=== PATIENT | female | born 1995 | race Caucasian/White ===

== ENCOUNTER 2019-05-26 00:19 | Inpatient (IN) ==
--- OUTSIDE RECORDS SUMMARY | 2019-05-26 00:23 | External Medical Summary | Continuity of Care Document ---
:1995 Author Name Yoandy Moore, Provider Address Unavailable Unavailable , Care Team Providers Name Role Phone Unavailable Unavailable Unavailable Cielo Whittington Unavailable [email or web address] Marin Mosqueda M.D. 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 Teresa Start: 21-May-2017 Refills: 0 Advil Cold/Sinus 30-200 MG Oral Tablet; TAKE 1 TABLET EVERY 4 TO 6 HOURS NEEDED. ALEX Ledezma Start: 31-Jul-2011 Quantity: 1 20 EA Box Refills: 0 Procedures History of intrauterine device removal S tatus: Completed History of hysteroscopy Status: Complete d History of termination of Stat us: Completed Immunizations Hepatitis B On: 1995 0:00 Hepatitis B On: 1995 0:00 Polio On: 1995 0:00 HIB On: 1995 0:00 DTaP On: 1995 0:00 Polio On: 14-Jan-1996 0:00 HIB On: 14-Jan-1996 0:00 DTaP On: 14-Jan-1996 0:00 Hepatitis B On: 29-Mar-1996 0:00 Polio On: 29-Mar-1996 0:00 HIB On: 29-Mar-1996 0:00 DTaP On: 29-Mar-1996 0:00 HIB On: 25-Mar-1997 0:00 DTaP On: 25-Mar-1997 0:00 MMR On: 25-Mar-1997 0:00 Polio On: 29-Sep-2000 0:00 DTaP On: 29-Sep-2000 0:00 MMR On: 29-Sep-2000 0:00 Varicella On: 29-Sep-2000 0:00 PPD On: 27-Oct-2001 0:00 Tdap (Adacel) On: 27-Oct-2006 0:00 Menactra Intramuscular Injectable On: 27-Oct-2006 0:00 Varicella On: 09-May-2008 0:00 HPV (Gardasil) On: 09-May-2008 0:00 HPV (Gardasil) On: 06-Jul-2008 0:00 HPV (Gardasil) On: 04-Nov-2008 0:00 Influenza On: 22-Dec-2008 0:00 PPD On: 17-Aug-2009 0:00 Influenza On: 09-Jan-2010 0:00 Family History Unknown Family Member Family history of lung disease (V19.8) Status: Active C omments: Family History (Z83.6) Social History - Smoking Status Never smoked tobacco Plan of Treatment Planned Observations Planned Goals not documented Results No Known Results Results not documented Encounters Appointment; Marin Mosqueda M.D. 04-Mar-2018 9:00 Encounter Diagnosis: Problem not documented Appointment; Shawn Almodovar PA-C 31-Oct-2017 14:10 Encounter Diagnosis: Problem not documented Appointment; Shawn Almodovar PA-C 15-Aug-2017 13:50 Encounter Diagnosis: Problem not documented
--- OUTSIDE RECORDS SUMMARY | 2019-05-26 00:23 | External Medical Summary | Continuity of Care Document ---
:1995 Author Name Yoandy Moore, Provider Address Unavailable Unavailable , Care Team Providers Name Role Phone Unavailable Unavailable Unavailable Cielo Whittington Unavailable [email or web address] Marin Mosqueda M.D. 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 ALEX Ledezma Start: 31-Jul-2011 Quantity: 1 20 EA Box Refills: 0 Ibuprofen 600 MG Oral Tablet; TAKE 1 TABLET EVERY 6 TO 8 HOURS NEEDEDTeresa Paredes Start: 21-May-2017 Refills: 0 methIMAzole 10 MG Oral Tablet; TAKE 2 TABLETS TWICE DA JJ Cueva Start: 21-May-2017 Quantity: 120 Refills: 0 Nexplanon 68 MG Subcutaneous Implant , Teresa Sta rt: 15-Aug-2017 Refills: 0 Propranolol HCl ER 80 MG Oral Capsule Ex tended Release 24 Hour; Take one tablet daily Teresa Mosqueda Start: 15-Aug-2017 Quantity: 30 Refills: 0 Procedures History of intrauterine device removal S tatus: Completed History of hysteroscopy Status: Complete d History of termination of Stat us: Completed Immunizations Hepatitis B On: 1995 0:00 Hepatitis B On: 1995 0:00 DTaP On: 1995 0:00 HIB On: 1995 0:00 Polio On: 1995 0:00 DTaP On: 14-Jan-1996 0:00 HIB On: 14-Jan-1996 0:00 Polio On: 14-Jan-1996 0:00 Hepatitis B On: 29-Mar-1996 0:00 DTaP On: 29-Mar-1996 0:00 HIB On: 29-Mar-1996 0:00 Polio On: 29-Mar-1996 0:00 DTaP On: 25-Mar-1997 0:00 HIB On: 25-Mar-1997 0:00 MMR On: 25-Mar-1997 0:00 DTaP On: 29-Sep-2000 0:00 Polio On: 29-Sep-2000 0:00 MMR On: 29-Sep-2000 0:00 Varicella On: 29-Sep-2000 0:00 PPD On: 27-Oct-2001 0:00 Menactra Intramuscular Injectable On: 27-Oct-2006 0:00 Tdap (Adacel) On: 27-Oct-2006 0:00 Varicella On: 09-May-2008 0:00 [...]
[2019-05-26] MEDS ORDERED: ACETAMINOPHEN 500 MG TAB PO STA (00:42)
[2019-05-26] MEDS ORDERED: SODIUM CHLORIDE 0.9% 1000ML 1,000 ML IV ONE ×2 (00:42→02:27)
[2019-05-26] MEDS ORDERED: KETOROLAC TROMETHAMINE 15 MG/ML VIAL IV STA (00:42)
[2019-05-26] MEDS ORDERED: ONDANSETRON INJ 2 MG/ML 2 ML VIAL IV STA (01:12)
[2019-05-26 01:31] LABS: Influenza A virus by PCR Neg for Influ A (Neg); Influenza B virus by PCR Neg for Influ B (Neg)
[2019-05-26 01:37] LABS: Alanine Aminotransferase 29 U/L (12-78); Albumin Level 3.5 gm/dl (3.4-5.0); Aspartate Aminotransferase 14 U/L (15-37); BUN Creatinine Ratio 13.7 (10-20); Blood Urea Nitrogen 8 mg/dl (7-18); Calcium 9.3 mg/dl (8.5-10.1); Carbon Dioxide 25 mmol/L (21-32); Chloride 105 mmol/L (98-107); Creatinine Clr Calc Pharmacy 128.1 ml/min; Est GFR (African American) 149.7; Est GFR (Non-African American) 129.2; Glucose 111 mg/dl (70-99); Potassium 3.6 mmol/L (3.5-5.1); Sodium 136 mmol/L (136-145)
[2019-05-26 01:42] LABS: Albumin Globulin Ratio 0.8 (0.9-2); Alkaline Phosphatase 142 U/L (45-117); Bilirubin,Total 0.5 mg/dl (0.2-1); Globulin 4.3 gm/dl (2.5-4.0); Total Protein 7.8 gm/dl (6.4-8.2); Troponin I < 0.015 ng/ml (0-0.045)
[2019-05-26 01:46] LABS: Basophils # (auto) 0.01 K/uL (0-0.2); Basophils % (auto) 0.1 %; Eosinophils # (auto) 0.07 K/uL (0-0.5); Eosinophils % (auto) 0.7 %; Hematocrit (blood only) 35.8 % (37-47); Immature Granulocytes # (auto) 0.03 K/uL (0.00-0.02); Immature Granulocytes % (auto) 0.3 %; Lymphocytes # (auto) 2.44 K/uL (1.2-3.4); Lymphocytes % (auto) 23.8 %; Mean Corpuscular Hemoglobin 22.8 pg (25-34); Mean Corpuscular Hgb Conc 33.5 g/dL (32-36); Mean Corpuscular Volume 68.1 fL (80-100); Mean Platelet Volume 10.4 fL (7.4-10.4); Microcytosis Present; Monocytes # (auto) 0.98 K/uL (0.11-0.59); Monocytes % (auto) 9.5 %; Neutrophils # (auto) 6.74 K/uL (1.4-6.5); Neutrophils % (auto) 65.6 %; Ovalocytes 1+; Platelet Count 205 K/uL (130-400); RDW Coefficient of Variation 14.9 % (11.5-14.5); RDW Standard Deviation 36.7 fL (36.4-46.3); Red Blood Count 5.26 M/uL (4.2-5.4); White Blood Count 10.27 K/uL (4.8-10.8)
[2019-05-26] MEDS ORDERED: HYCODAN 60ML BOTTLE HOMEPACK PO ONE (02:39)
--- NOTE | 2019-05-26 03:00 | Emergency Department Note ---
History of Present Illness General Chief complaint: Illness Stated complaint: DRY COUGH,CHEST PAIN,RUNNY NOSE Time Seen by Provider: 05/26/19 00:28 Source: patient Mode of arrival: ambulatory Limitations: no limitations History of Present Illness Maximum Pain Intensity: 7 This patient is a 23-year-old female who presents to the emergency department for evaluation of flulike symptoms. Patient states she has had a dry cough, shortness of breath, chest pain, muscle aches, sore throat, nasal congestion and fever which started yesterday. The patient states that a few weeks ago, she had some cold symptoms which resolved until yesterday. She has not taken any medications for her symptoms. She reports that the chest pain started on the right side but is now across both sides of the chest. She did not receive a flu shot this year. She rates her discomfort a 7/10. She reports a past medical history of Graves' disease and takes propanolol and methimazole for this. Denies abdominal pain, vomiting, diarrhea or neck pain. Denies any urinary symptoms. Home Medications Home Medications Medication Instructions Recorded Confirmed Type Thyroid Med 1 tab PO DAILY 05/26/19 05/26/19 History albuterol sulfate [Ventolin HFA] 2 puff INHALATION Q4H PRN 05/26/19 05/26/19 History fluticasone furoate-vilanterol 1 inh INHALATION DAILY 05/26/19 05/26/19 History [Breo Ellipta] methimazole 20 mg PO BID 05/26/19 05/26/19 History montelukast 10 mg PO DAILY 05/26/19 05/26/19 History propranolol 80 mg PO DAILY 05/26/19 05/26/19 History Allergies Allergy/AdvReac Type Severity Reaction Status Date / Time No Known Allergies Allergy Unverified 05/26/19 00:53 Past Med/Surg History Medical History Graves' disease Social History Preferred Language: Romansh Communication Ability: Effective Filenet Developer Required: No Beliefs That Will Affect Care: None Current Living Situation: Family Current Living Situation Comment: grandmother Feels Safe at Home: Yes Smoking Status: Never smoker Hx Alcohol Use: Yes Hx Substance Use: Yes substance use type: marijuana Last Used Substance Other:: daily Review of Systems A total of 10 systems reviewed and were otherwise negative Physical Exam Vital Signs Vital Signs - 24 hr 05/26/19 00:22 05/26/19 01:06 05/26/19 01:09 Temperature 39 C H Temperature Source Oral Pulse Rate 130 H 114 H 118 H Pulse Rate from SpO2 Sensor 115 H Respiratory Rate 20 22 17 Blood Pressure 120/87 136/69 Blood Pressure Mean 98 98 Pulse Oximetry 94 98 Oxygen Delivery Method Room Air Room Air Room Air Sepsis Recent Fever Within 48 Hours No Sepsis New/Unexplained Change in Mental Status No Sepsis Action Taken by Nursing No Action Required 05/26/19 01:10 05/26/19 01:20 05/26/19 01:30 Temperature Temperature Source Pulse Rate 119 H 120 H 119 H Pulse Rate from SpO2 Sensor 128 H 122 H 116 H Respiratory Rate 24 29 H 24 Blood Pressure 132/68 Blood Pressure Mean 76 Pulse Oximetry 93 97 Oxygen Delivery Method Room Air Room Air Room Air Sepsis Recent Fever Within 48 Hours Sepsis New/Unexplained Change in Mental Status Sepsis Action Taken by Nursing 05/26/19 01:40 05/26/19 01:50 05/26/19 02:00 Temperature Temperature Source Pulse Rate 122 H 126 H 127 H Pulse Rate from SpO2 Sensor 123 H 126 H 127 H Respiratory Rate 36 H 29 H 19 Blood Pressure 140/72 Blood Pressure Mean 102 Pulse Oximetry 95 94 97 Oxygen Delivery Method Room Air Room Air Room Air Sepsis Recent Fever Within 48 Hours Sepsis New/Unexplained Change in Mental Status Sepsis Action Taken by Nursing 05/26/19 02:10 05/26/19 02:13 05/26/19 02:30 Temperature 37.8 C H Temperature Source Oral Pulse Rate 128 H 119 H Pulse Rate from SpO2 Sensor 126 H 120 H Respiratory Rate 14 18 Blood Pressure 127/84 Blood Pressure Mean 94 Pulse Oximetry 97 95 Oxygen Delivery Method Room Air Sepsis Recent Fever Within 48 Hours Sepsis New/Unexplained Change in Mental Status Sepsis Action Taken by Nursing 05/26/19 03:00 05/26/19 03:30 05/26/19 04:00 Temperature Temperature Source Pulse Rate 108 H 105 H 106 H Pulse Rate from SpO2 Sensor 109 H 111 H 107 H Respiratory Rate 25 H 15 13 Blood Pressure 140/73 132/89 141/62 H Blood Pressure Mean 88 105 80 Pulse Oximetry 97 97 96 Oxygen Delivery Method Sepsis Recent Fever Within 48 Hours Sepsis New/Unexplained Change in Mental Status Sepsis Action Taken by Nursing VITALS: Vitals are noted on the nurse's note and reviewed by myself. GENERAL: This is a 23-year-old female, uncomfortable appearing, well-developed well-nourished. SKIN: The skin was without rashes. EARS: External auditory canals clear, tympanic membranes pearly aragon without erythema or effusion bilaterally. EYES: Pupils equal round and reactive to light and accommodation. NOSE: Patent, turbinates without inflammation or discharge. MOUTH: Mucous membranes moist. Tonsils are not enlarged. Pharynx without erythema or exudate. NECK: Supple without nuchal rigidity. No lymphadenopathy. HEART: Tachycardic, regular rhythm without murmurs gallops or rubs. LUNGS: Clear to auscultation bilaterally without wheezes, rales or rhonchi. No retractions or accessory muscle use. ABDOMEN: Positive bowel sounds x 4. Soft, nontender to palpation. EXTREMITIES: No pitting edema of the lower extremities. NEURO: Patient was alert and oriented to person place and time. Course Consultations Consultation #1: Dr. Mensah [facility] hospitalist Administered Medications Benzonatate (Tessalon Perle) 100 mg PO TID PRN PRN Reason: Cough Stop: 06/25/19 05:14 Last Admin: 05/26/19 05:36 Dose: 100 mg Documented by: [id number] Sodium Chloride (Nss 1000ml) 1,000 mls @ 100 mls/hr IV .Q10H CAMRYN Stop: 06/25/19 05:14 Last Admin: 05/26/19 05:36 Dose: 100 mls/hr Documented by: [id number] Ioversol (Optiray 320 125ml) 125 ml IV ONCE PRN PRN Reason: Interaction Checking Stop: 05/30/19 05:05 Last Admin: 05/26/19 05:06 Dose: 78 ml Documented by: [id number] Discontinued Medications Acetaminophen (Tylenol) 1,000 mg PO NOW STA Stop: 05/26/19 00:43 Last Admin: 05/26/19 01:06 Dose: 1,000 mg Documented by: [id number] Hydrocodone Bit/Homatropine Methylb (Hycodan Elix Homepack 5/1.5mg/5ml) 1 homepack PO UD ONE Stop: 05/26/19 02:40 Last Admin: 05/26/19 02:43 Dose: 1 homepack Documented by: [id number] Sodium Chloride (Nss 1000ml) 1,000 mls @ 999 mls/hr IV .Q1H1M ONE Stop: 05/26/19 01:42 Last Infusion: 05/26/19 02:14 Dose: 0 mls/hr Documented by: [id number] Admin: 05/26/19 01:06 Dose: 999 mls/hr Documented by: [id number] Sodium Chloride (Nss 1000ml) 1,000 mls @ 999 mls/hr IV .Q1H1M ONE Stop: 05/26/19 03:27 Last Infusion: 05/26/19 03:54 Dose: 0 mls/hr Documented by: [id number] Admin: 05/26/19 02:33 Dose: 999 mls/hr Documented by: [id number] Ketorolac Tromethamine (Toradol) 15 mg IV NOW STA Stop: 05/26/19 00:43 Last Admin: 05/26/19 01:06 Dose: 15 mg Documented by: [id number] Ketorolac Tromethamine (Toradol) 15 mg IV NOW ONE Stop: 05/26/19 05:55 Last Admin: 05/26/19 06:13 Dose: 15 mg Documented by: [id number] Ondansetron HCl (Zofran) 4 mg IV NOW STA Stop: 05/26/19 01:13 Last Admin: 05/26/19 01:17 Dose: 4 mg Documented by: [id number] Medical Decision Making Differential Diagnosis Differential diagnosis includes influenza, pneumonia, viral illness, pericarditis, myocarditis, mononucleosis, meningitis, encephalitis, sepsis, among others. Home Medications Current Medication List: was personally reviewed by me Laboratory Data Attestation: I reviewed the patient's lab results. Result diagrams: 05/26/19 01:08 05/26/19 01:08 Lab Results 05/26/19 05/26/19 05/26/19 Range/Units 00:53 01:08 01:08 WBC 10.27 (4.8-10.8) K/uL RBC 5.26 (4.2-5.4) M/uL Hgb 12.0 (12.0-16.0) g/dL Hct 35.8 L (37-47) % MCV 68.1 L (80-100) fL MCH 22.8 L (25-34) pg MCHC 33.5 (32-36) g/dL RDW Std Deviation 36.7 (36.4-46.3) fL RDW Coeff of Haseeb 14.9 H (11.5-14.5) % Plt Count 205 (130-400) K/uL MPV 10.4 (7.4-10.4) fL Immature Gran % (Auto) 0.3 % Neut % (Auto) 65.6 % Lymph % (Auto) 23.8 % [place] % (Auto) 9.5 % Eos % (Auto) 0.7 % Baso % (Auto) 0.1 % Immature Gran # (Auto) 0.03 H (0.00-0.02) K/uL Neut # (Auto) 6.74 H (1.4-6.5) K/uL Lymph # (Auto) 2.44 (1.2-3.4) K/uL [place] # (Auto) 0.98 H (0.11-0.59) K/uL Eos # (Auto) 0.07 (0-0.5) K/uL Baso # (Auto) 0.01 (0-0.2) K/uL Absolute Nucleated RBC 0.00 (0-0) K/uL Nucleated RBC % (auto) 0.0 % Microcytosis Present Ovalocytes 1+ ESR (0-21) mm/hr Sodium 136 (136-145) mmol/L Potassium 3.6 (3.5-5.1) mmol/L Chloride 105 (98-107) mmol/L Carbon Dioxide 25 (21-32) mmol/L Anion Gap 6.0 (3-11) BUN 8 (7-18) mg/dl Creatinine 0.59 L (0.6-1.2) mg/dl Est Cr Clr Drug Dosing 128.1 ml/min Est GFR ( Amer) 149.7 Est GFR (Non-Af Amer) 129.2 BUN/Creatinine Ratio 13.7 (10-20) Glucose 111 H (70-99) mg/dl Calcium 9.3 (8.5-10.1) mg/dl Total Bilirubin 0.5 (0.2-1) mg/dl AST 14 L (15-37) U/L ALT 29 (12-78) U/L Alkaline Phosphatase 142 H (45-117) U/L Troponin I < 0.015 (0-0.045) ng/ml C-Reactive Protein 0.78 H (0-0.29) mg/dl Total Protein 7.8 (6.4-8.2) gm/dl Albumin 3.5 (3.4-5.0) gm/dl Globulin 4.3 H (2.5-4.0) gm/dl Albumin/Globulin Ratio 0.8 L (0.9-2) Urine Color Urine Appearance (Clear) Urine pH (4.5-7.5) Ur Specific [place] (1.000-1.030) Urine Protein (Negative) Urine Glucose (UA) (Negative) Urine Ketones (Negative) Urine Blood (Negative) Urine Nitrite (Negative) Urine Bilirubin (Negative) Urine Urobilinogen (Negative) Ur Leukocyte Esterase (Negative) POC Ur Test (NEG) Monoscreen (Negative) Influenza Type A (PCR) Neg for Influ A (Neg) Influenza Type B (PCR) Neg for Influ B (Neg) 05/26/19 05/26/19 05/26/19 Range/Units 01:08 01:08 02:50 WBC (4.8-10.8) K/uL RBC (4.2-5.4) M/uL Hgb (12.0-16.0) g/dL Hct (37-47) % MCV (80-100) fL MCH (25-34) pg MCHC (32-36) g/dL RDW Std Deviation (36.4-46.3) fL RDW Coeff of Haseeb (11.5-14.5) % Plt Count (130-400) K/uL MPV (7.4-10.4) fL Immature Gran % (Auto) % Neut % (Auto) % Lymph % (Auto) % [place] % (Auto) % Eos % (Auto) % Baso % (Auto) % Immature Gran # (Auto) (0.00-0.02) K/uL Neut # (Auto) (1.4-6.5) K/uL Lymph # (Auto) (1.2-3.4) K/uL [place] # (Auto) (0.11-0.59) K/uL Eos # (Auto) (0-0.5) K/uL Baso # (Auto) (0-0.2) K/uL Absolute Nucleated RBC (0-0) K/uL Nucleated RBC % (auto) % Microcytosis Ovalocytes ESR 33 H (0-21) mm/hr Sodium (136-145) mmol/L Potassium (3.5-5.1) mmol/L Chloride (98-107) mmol/L Carbon Dioxide (21-32) mmol/L Anion Gap (3-11) BUN (7-18) mg/dl Creatinine (0.6-1.2) mg/dl Est Cr Clr Drug Dosing ml/min Est GFR ( Amer) Est GFR (Non-Af Amer) BUN/Creatinine Ratio (10-20) Glucose (70-99) mg/dl Calcium (8.5-10.1) mg/dl Total Bilirubin (0.2-1) mg/dl AST (15-37) U/L ALT (12-78) U/L Alkaline Phosphatase (45-117) U/L Troponin I (0-0.045) ng/ml C-Reactive Protein (0-0.29) mg/dl Total Protein (6.4-8.2) gm/dl Albumin (3.4-5.0) gm/dl Globulin (2.5-4.0) gm/dl Albumin/Globulin Ratio (0.9-2) Urine Color Urine Appearance (Clear) Urine pH (4.5-7.5) Ur Specific [place] (1.000-1.030) Urine Protein (Negative) Urine Glucose (UA) (Negative) Urine Ketones (Negative) Urine Blood (Negative) Urine Nitrite (Negative) Urine Bilirubin (Negative) Urine Urobilinogen (Negative) Ur Leukocyte Esterase (Negative) POC Ur Test NEG (NEG) Monoscreen Negative (Negative) Influenza Type A (PCR) (Neg) Influenza Type B (PCR) (Neg) 05/26/19 Range/Units 02:50 WBC (4.8-10.8) K/uL RBC (4.2-5.4) M/uL Hgb (12.0-16.0) g/dL Hct (37-47) % MCV (80-100) fL MCH (25-34) pg MCHC (32-36) g/dL RDW Std Deviation (36.4-46.3) fL RDW Coeff of Haseeb (11.5-14.5) % Plt Count (130-400) K/uL MPV (7.4-10.4) fL Immature Gran % (Auto) % Neut % (Auto) % Lymph % (Auto) % [place] % (Auto) % Eos % (Auto) % Baso % (Auto) % Immature Gran # (Auto) (0.00-0.02) K/uL Neut # (Auto) (1.4-6.5) K/uL Lymph # (Auto) (1.2-3.4) K/uL [place] # (Auto) (0.11-0.59) K/uL Eos # (Auto) (0-0.5) K/uL Baso # (Auto) (0-0.2) K/uL Absolute Nucleated RBC (0-0) K/uL Nucleated RBC % (auto) % Microcytosis Ovalocytes ESR (0-21) mm/hr Sodium (136-145) mmol/L Potassium (3.5-5.1) mmol/L Chloride (98-107) mmol/L Carbon Dioxide (21-32) mmol/L Anion Gap (3-11) BUN (7-18) mg/dl Creatinine (0.6-1.2) mg/dl Est Cr Clr Drug Dosing ml/min Est GFR ( Amer) Est GFR (Non-Af Amer) BUN/Creatinine Ratio (10-20) Glucose (70-99) mg/dl Calcium (8.5-10.1) mg/dl Total Bilirubin (0.2-1) mg/dl AST (15-37) U/L ALT (12-78) U/L Alkaline Phosphatase (45-117) U/L Troponin I (0-0.045) ng/ml C-Reactive Protein (0-0.29) mg/dl Total Protein (6.4-8.2) gm/dl Albumin (3.4-5.0) gm/dl Globulin (2.5-4.0) gm/dl Albumin/Globulin Ratio (0.9-2) Urine Color Yellow Urine Appearance Clear (Clear) Urine pH 6.0 (4.5-7.5) Ur Specific [place] 1.008 (1.000-1.030) Urine Protein Negative (Negative) Urine Glucose (UA) Negative (Negative) Urine Ketones Negative (Negative) Urine Blood Negative (Negative) Urine Nitrite Negative (Negative) Urine Bilirubin Negative (Negative) Urine Urobilinogen Negative (Negative) Ur Leukocyte Esterase Negative (Negative) POC Ur Test (NEG) Monoscreen (Negative) Influenza Type A (PCR) (Neg) Influenza Type B (PCR) (Neg) Imaging Data Attestation: I personally reviewed and interpreted this imaging study as follows: My Impression: CHEST 1 VIEW: No acute pulmonary consolidation. No cardiomegaly. ECG Data Attestation: I personally reviewed and interpreted this ECG as follows: Indication: + chest pain Rate (beats per minute): 117 Rhythm: + normal sinus ECG Intervals/blocks: + Normal QRS ECG ST segments: + T-wave inversions (Lateral) Change: the following changes noted (T wave inversions now noted in the lateral leads) Blood Pressure Blood Pressure Findings: Normal blood pressure MDM Narrative The patient is a 23-year-old female who presents today complaining of flulike symptoms and chest pain. Labs revealed no leukocytosis, anemia, or concerning electrolyte abnormalities. Troponin was not elevated. Patient was persistently tachycardic and does have an abnormal EKG. Compared to previous, she now has deep T wave inversions in the lateral leads. Given this as well as patient's active chest pain, there is concern for developing pericarditis. I do feel the patient would benefit from further work-up as an inpatient. Patient was agreeable to this. Case was discussed with the [facility], who will evaluate the patient for further care. Patient was placed on continuous cardiac monitoring throughout her stay. child monitor showed a normal sinus rhythm at 110 bpm. Impression & Plan Left-sided chest pain, Abnormal EKG, Acute febrile illness Discharge Plan Visit Data *Final* Discharge Date/Time: 05/26/19 04:37 Chief Complaint: Illness Stated Complaint: DRY COUGH,CHEST PAIN,RUNNY NOSE ED Provider: Homer Adorno ED Midlevel Provider: Tasneem Lynn Discharge Problem: Left-sided chest pain, Abnormal EKG, Acute febrile illness Patient Disposition: Admitted As Inpatient Discharge Instructions Interventions: ED Discharge Assessment Last Done: 05/26/19 04:37
[2019-05-26 03:07] LABS: Appearance Urine Clear (Clear); Bilirubin Urine Negative (Negative); Blood Urine Negative (Negative); Color Urine Yellow; Glucose Urine UA Negative (Negative); Ketones Urine Negative (Negative); Leukocyte Esterase Urine Negative (Negative); Nitrite Urine Negative (Negative); Protein Urine Negative (Negative); Specific Gravity Urine 1.008 (1.000-1.030); Urobilinogen Urine Negative (Negative)
[2019-05-26 03:25] LABS: C Reactive Protein 0.78 mg/dl (0-0.29)
[2019-05-26] MEDS ORDERED: OPTIRAY 320 125ml IV PRN (05:06)
[2019-05-26] MEDS ORDERED: BENZONATATE 100 MG CAPSULE PO PRN (05:15)
[2019-05-26] MEDS ORDERED: NITROGLYCERIN SL 0.4 MG/TAB TAB SL PRN (05:15)
[2019-05-26] MEDS ORDERED: SODIUM CHLORIDE 0.9% 1000ML 1,000 ML IV SCH (05:15)
[2019-05-26] MEDS ORDERED: ONDANSETRON INJ 2 MG/ML 2 ML VIAL IV PRN (05:15)
[2019-05-26] MEDS ORDERED: KETOROLAC TROMETHAMINE 15 MG/ML VIAL IV ONE (05:54)
--- NOTE | 2019-05-26 06:31 | XRay Report ---
XR chest 1V portable HISTORY: 23 years-old Female fever, cough, chest pain acute cough with fever and chest pain COMPARISON: CTA of the chest of same day TECHNIQUE: Portable AP view of the chest FINDINGS: Cardiomediastinal and hilar silhouettes are within normal limits. Minimal ill-defined bilateral opaci ties are better appreciated on the CTA chest of same day. No pneumothorax, pleural effusion or lobar airspace consolidation. The bones of the chest appear grossly intact. IMPRESSION: Minimal ill-defined bilateral opacities are better appreciated on CTA chest of the same d ay and are suggestive of a multifocal pneumonia. ACT 112: Negative or not required by law. The above report was generated using voice recognition software. It may contain grammatical, syntax o r spelling errors. Electronically signed by: Angel Quintana M.D. 05/26/2019 6:30 AM
--- NOTE | 2019-05-26 06:37 | CT Scan Report ---
CT ANGIOGRAM OF THE CHEST CLINICAL HISTORY: Atypical chest pain. Dry cough. Possible pulmonary embolism. COMPARISON STUDY: Chest x-ray dated 05/26/2019 TECHNIQUE: Following the IV administration of 78 mL of Optiray-320, CT angiogram of the thorax was pe rformed from the thoracic inlet to the lung bases utilizing the pulmonary embolus protocol. Images ar e reviewed in the axial, sagittal, and coronal planes. IV contrast was administered without complicat ion. MIP imaging was performed. A dose lowering technique was utilized adhering to the principles of ALARA. CT DOSE: 207.91 mGy.cm FINDINGS: There is a multinodular thyroid goiter. There is prominent residual findings tissue. There are mildly enlarged hilar lymph nodes. There was no evidence of thoracic aortic dilatation. There were no pulmonary artery filling defects to indicate acute pulmonary embolism. No pleural effusions are visualized. There is mild lower lobe bronchial wall thickening. There are scattered bilateral acid or opacities, most pronounced within the left lower lobe. The findings are consistent with a multilobar pneumonitis . Clinical and radiographic follow-up is recommended. IMPRESSION: 1. No evidence of acute pulmonary embolism 2. Bilateral ill-defined nodular opacities most pronounced within the right upper lobe and left lower lobe. There is mild bronchial wall thickening. The findings are consistent with a multilobar pneumon itis. Clinical and radiographic follow-up is recommended 3. Mildly enlarged hilar lymph nodes likely reactive 4. Multinodular thyroid goiter ACT 112: Negative or not required by law. Electronically signed by: Bahman Grant M.D. 05/26/2019 6:36 AM
[2019-05-26 07:43] LABS: Basophils # (auto) 0.01 K/uL (0-0.2); Basophils % (auto) 0.1 %; Eosinophils # (auto) 0.18 K/uL (0-0.5); Eosinophils % (auto) 2.2 %; Hematocrit (blood only) 31.6 % (37-47); Hemoglobin 10.5 g/dL (12.0-16.0); Immature Granulocytes # (auto) 0.01 K/uL (0.00-0.02); Immature Granulocytes % (auto) 0.1 %; Lymphocytes # (auto) 2.75 K/uL (1.2-3.4); Lymphocytes % (auto) 33.5 %; Mean Corpuscular Hemoglobin 22.6 pg (25-34); Mean Corpuscular Hgb Conc 33.2 g/dL (32-36); Mean Platelet Volume 10.1 fL (7.4-10.4); Monocytes # (auto) 0.84 K/uL (0.11-0.59); Monocytes % (auto) 10.2 %; Neutrophils # (auto) 4.41 K/uL (1.4-6.5); Neutrophils % (auto) 53.9 %; Platelet Count 190 K/uL (130-400); RDW Coefficient of Variation 15.1 % (11.5-14.5); RDW Standard Deviation 37.1 fL (36.4-46.3); Red Blood Count 4.65 M/uL (4.2-5.4)
[2019-05-26 08:04] LABS: RBC Morphology Unremarkable
[2019-05-26 08:14] LABS: BUN Creatinine Ratio 18.7 (10-20); Blood Urea Nitrogen 8 mg/dl (7-18); Calcium 8.8 mg/dl (8.5-10.1); Carbon Dioxide 24 mmol/L (21-32); Chloride 111 mmol/L (98-107); Creatinine Clr Calc Pharmacy 167.9 ml/min; Est GFR (African American) > 150.0; Est GFR (Non-African American) 141.2; Glucose 88 mg/dl (70-99); Magnesium 1.7 mg/dl (1.8-2.4); Potassium 3.8 mmol/L (3.5-5.1); Sodium 139 mmol/L (136-145)
[2019-05-26 08:25] LABS: Thyroid Stimulating Hormone < 0.005 uIu/ml (0.300-4.500); Troponin I < 0.015 ng/ml (0-0.045)
[2019-05-26 08:37] LABS: T4 Free Thyroxine > 8.00 ng/dl (0.8-1.6)
[2019-05-26] MEDS: DOXYCYCLINE HYCLATE 100 MG in DEXTROSE 5% 100 ML IV SCH ×2 (09:39→19:56)
[2019-05-26] MEDS: cefTRIAXone SODIUM 1,000 MG in DEXTROSE 5% 50 ML IV SCH (09:40)
[2019-05-26] MEDS: FLUTICASONE/VILANTEROL 100/25MCG 14 PUFFS/INHALER INH SCH (09:47)
[2019-05-26] MEDS: PROPRANOLOL HCL LA 80 MG CAPCR PO SCH (09:48)
[2019-05-26] MEDS: MONTELUKAST SODIUM 10 MG TABLET PO SCH (09:48)
[2019-05-26] MEDS: methIMAzole 5 MG TABLET PO SCH ×2 (09:48→19:57)
--- NOTE | 2019-05-26 10:25 | History and Physical Report ---
DATE OF ADMISSION: 05/26/2019 CHIEF COMPLAINT: Chest pain and shortness of breath. HISTORY OF PRESENT ILLNESS: This is a 23-year-old female with past medical history significant for hyperthyroidism, Graves' disease, history of asthma, history of dysmenorrhea, history of sickle cell trait, presents with chest pain and shortness of breath. The patient says she had cold symptoms 2 weeks ago that was resolved, again yesterday she noticed started having runny nose, sore throat and also developed dry cough and chest pain and the chest pain is more when she is coughing and the pain is not associated with any positional change . In the ER, she was having tachycardia and mild temp spike. No leukocytosis. Flu was negative. Urinalysis was negative. Chest x-ray was unremarkable. Her EKG showed some T-wave inversions in the anterior leads. Troponin is negative. Question of pericarditis and received a dose of IV Toradol. When she came in, the chest pain was severe, but now it is 5/10 in severity, mostly in the left side. Otherwise, resting comfortably, hemodynamically stable. Denies any headache, no dizziness, no blurred vision, no earaches. Has some sore throat, no dysphagia. Appetite is okay. No nausea, no vomiting, no abdominal pain. No diarrhea or constipation. No blood in stools or black stools. No burning micturition, no hematuria. No rash, no swelling in the legs. ALLERGIES: No known drug allergies. PAST MEDICAL HISTORY: As mentioned above. PAST SURGICAL HISTORY: hysteroscopy, removal of intrauterine device. MEDICATIONS: The patient is on albuterol 2 puffs q. 4 hours p.r.n., Breo Ellipta 1 inhalation daily, methimazole 20 mg p.o. b.i.d., montelukast 10 mg p.o. daily, propranolol 80 mg p.o. daily. FAMILY HISTORY: Significant for maternal grandmother has blood disorder and hepatitis C. SOCIAL HISTORY: Single. Smokes marijuana every day. No alcohol, no drug use. REVIEW OF SYMPTOMS: As per HPI. Rest of review of symptoms negative. PHYSICAL EXAMINATION: GENERAL: The patient is of moderate build, not in acute distress. VITAL SIGNS: T-max 39, pulse 106, respiratory rate 13, blood pressure 141/62, oxygen 96% on room air. HEENT: Pupils equal, round, reactive to light. NECK: Supple. CARDIOVASCULAR: S1, S2 heard. Regular rate and rhythm. No murmur, no gallop. RESPIRATORY SYSTEM: Normal AP diameter. No accessory muscle use. No wheezing, no crackles. ABDOMEN: Soft, bowel sounds present, nontender. No distention. CENTRAL NERVOUS SYSTEM: Cranial nerves II-XII grossly intact. Nonfocal. EXTREMITIES: No edema, no erythema. LABORATORY DATA: WBC 10, hemoglobin 12, hematocrit 35.8, platelets 205. ESR 33. Sodium 136, potassium 3.6, chloride 105, bicarb 25, BUN 8, creatinine 0.5, serum glucose 111, calcium 9.0. Total bilirubin 0.5, AST 14, ALT 29, alkaline phosphatase 142. Troponin I less than 0.015. C-reactive protein 0.78. Urinalysis negative. Point of care test negative. Door screen negative. Influenza A and B negative. DIAGNOSTIC DATA: Chest x-ray, no acute findings. EKG: Initial EKG showed sinus tachycardia with 117, T-wave abnormality, consider lateral ischemia and possible left atrial enlargement and repeat EKG is normal sinus rhythm with rate of 99, T-wave inversions seen in anterior leads. ASSESSMENT AND PLAN: 1. This is a 23-year-old female who presents with cold-like symptoms with runny nose, sore throat, dry cough with chest pain which is more with coughing and also shortness of breath. In the ER, she was found to have temp spike, tachycardia and some EKG changes, questionable pericarditis, received fluids, IV Toradol, Tylenol . Currently chest pain is improving. Symptoms could be likely viral syndrome, possible pericarditis. We will rule out PE. We will get a CT of the chest to rule out PE and pericarditis and also echocardiogram, serial enzymes. We will keep her n.p.o. and continue IV fluids and normal saline 100 mL per hour. Tachycardia improved with fluids. Cardiac consult in a.m. for further recommendations. 2. History of Graves disease and hyperthyroidism on. methimazole.Will follow thyroid function. 3. History of asthma. Continue home inhalers, currently seems stable. 4. Deep venous thrombosis prophylaxis. SCDs. DISPOSITION: Closely monitor in tele floor. Level 1 full code. MTDD
[2019-05-26] MEDS: OXYCODONE HCL IR 5 MG TAB (IMMEDIATE RELEASE) PO PRN ×2 (10:27→21:18)
[2019-05-26] MEDS: MAGNESIUM SULFATE / D5W 1 GM/100 ML BAG IV SCH ×2 (10:28→11:28)
--- NOTE | 2019-05-26 11:05 | Cardiology Consultation ---
Date of Consultation May 26, 2019 Assessment & Plan (1) Chest pain: patient admitted for 3 days of chest pain, occurring with coughing and now pleuritic in nature Cardiac enzymes are negative. She has findings of pneumonia and pneumonitis on her chest xray and chest CT, likely causing her symptoms. There was concern for acute pericarditis which is less likely. Echocardiogram is pending and will review when available. (2) Abnormal EKG: T wave inversions in lateral leads noted. Negative cardaic enzymes. Await echo results (3) Sinus tachycardia: continue home dose propranolol (4) Graves disease: (5) Pneumonitis: Recommend treating for underlying pneumonia with ongoing antibiotic therapy Case discussed with Dr. Lozano. Will review echo when available. Further recommendations at this time. Supervising Physician Co-Signing Physician Notes General: no acute distress and stated age Head: normocephalic, no masses, lesions, tenderness or abnormalities Eyes: conjunctiva are pink and non-injected, sclera clear Neck: supple, no adenopathy, no bruits, normal jugular venous pulse, no hepatojugular reflux Chest: normal shape and normal respiratory effort Lungs: clear to auscultation and percussion Cardiac Exam: - regular rate & rhythm, no murmurs gallops or rubs - normal S1, normal S2 Pulses: 2(+) throughout Abdomen: abdomen soft, non-tender, no abnormal masses and no hepatosplenomegaly Musculoskeletal: no gait disturbance, no joint inflammation, no deforming arthritis Extremities: no edema and no cyanosis Neuro: grossly normal exam I have discussed the case with Lisbet Pérez. I have interviewed the patient, reviewed the medical record and examined the patient. I agree with her assessment and current treatment plan. Echocardiogram was obtained which I will review however I did review the CT scan as well as the chest x-ray and I see no significant pericardial effusion. History of Present Illness Reason for Consultation: Pleuritic chest pain; Abnormal EKG Requesting Physician: Dr. Mensah Attending Physician: Dr. Lozano History of Present Illness Patient is a 23-year-old female with history of Graves' disease, Sinus tachycardia secondary to her hyperthyroidism on chronic propranolol, and history of sickle cell trait/carrier. Patient reports she was in her usual state of health until this past Friday when she developed cough, sore throat and chest pain associated with coughing. As the week progressed, her symptoms worsened and she developed continuous chest pain worse with deep breaths and coughing. She came to the emergency department for evaluation. She was found to Be febrile. Chest x-ray consistent with possible bilateral pneumonia. Chest CT performed which demonstrated bilateral pneumonitis. No evidence of PE. She was found to have abnormal EKG with sinus tachycardia and T wave inversions in anterior lateral leads new compared to prior in 2017. Cardiac enzymes unremarkable. Mildly elevated ESR. There was concern she may also have pericarditis. She was admitted for further treatment And evaluation. she was started on antibiotic therapy and inhaler. Magnesium level being replaced. She was also found to be anemic. At time of consult, patient resting comfortably in bed. She reports ongoing pleuritic/left sided chest pain, worse with coughing and laying on her left side. Pain has improved from admission but not resolved. Pain is also reproduced by palpating the left chest wall. she denies acute SOB. No dizziness or palpitations. no orthopnea, PND or edema. She denies being around sick contacts recently. she had an echo completed this morning which is pending she denies a history of cardiovascular issues other than sinus tach and palpitations related to her thyroid disorder. Allergies Allergy/AdvReac Type Severity Reaction Status Date / Time No Known Allergies Allergy Unverified 05/26/19 00:53 Home Medications Home Medications Medication Instructions Recorded Confirmed Type Thyroid Med 1 tab PO DAILY 05/26/19 05/26/19 History albuterol sulfate [Ventolin HFA] 2 puff INHALATION Q4H PRN 05/26/19 05/26/19 History fluticasone furoate-vilanterol 1 inh INHALATION DAILY 05/26/19 05/26/19 History [Breo Ellipta] methimazole 20 mg PO BID 05/26/19 05/26/19 History montelukast 10 mg PO DAILY 05/26/19 05/26/19 History propranolol 80 mg PO DAILY 05/26/19 05/26/19 History Patient History Medical History Graves' disease Social History Preferred Language: Bulgarian Communication Ability: Effective Systems Development Consultant Required: No Beliefs That Will Affect Care: None Current Living Situation: Family Current Living Situation Comment: grandmother Feels Safe at Home: Yes Smoking Status: Never smoker Hx Alcohol Use: Yes Hx Substance Use: Yes substance use type: marijuana Last Used Substance Other:: daily Review of Systems Review of Systems: All systems reviewed & are unremarkable except as noted in HPI & below Physical Exam Constitutional: WD/WN, vitals as above no acute distress and not ill appearing Respiratory: normal respiratory effort; no respiratory distress Auscultation: + rhonchi and + wheezes Cardiovascular: Rate/Rhythm: regular rhythm and + tachycardic Heart Sounds: no murmur Vessels: no JVD Extremities: no edema Gastrointestinal (Abdomen): normal bowel sounds, soft, nontender, no hepatosplenomegaly Musculoskeletal: no cyanosis or clubbing, extremities motor strength 5/5 Neurologic: PERRL, EOMI, accommodation nl, no face palsy, no dysarthria Psychiatric: A+Ox3, euthymic affect Results & Data ([facility]) Vital Signs (Past 12 Hours) Vital Signs Temp Pulse Pulse Resp BP BP Pulse Ox 05/26/19 07:37 36.6 C 91 H 18 126/78 94 05/26/19 05:11 36.8 C 18 107/64 97 05/26/19 04:30 103 H 20 116/66 96 05/26/19 04:00 106 H 13 141/62 H 96 05/26/19 03:30 105 H 15 132/89 97 05/26/19 03:00 108 H 25 H 140/73 97 05/26/19 02:30 119 H 18 127/84 95 05/26/19 02:13 37.8 C H 05/26/19 02:10 128 H 14 97 05/26/19 02:00 127 H 19 140/72 97 05/26/19 01:50 126 H 29 H 94 05/26/19 01:40 122 H 36 H 95 05/26/19 01:30 119 H 24 132/68 97 05/26/19 01:20 120 H 29 H 93 05/26/19 01:10 119 H 24 05/26/19 01:09 118 H 17 05/26/19 01:06 114 H 22 136/69 98 05/26/19 00:22 39 C H 130 H 20 120/87 94 Laboratory Results 05/26/19 05/26/19 05/26/19 Range/Units 07:18 07:18 02:50 WBC 8.20 (4.8-10.8) K/uL RBC 4.65 (4.2-5.4) M/uL Hgb 10.5 L (12.0-16.0) g/dL Hct 31.6 L (37-47) % MCV 68.0 L (80-100) fL MCH 22.6 L (25-34) pg MCHC 33.2 (32-36) g/dL RDW Std Deviation 37.1 (36.4-46.3) fL RDW Coeff of Haseeb 15.1 H (11.5-14.5) % Plt Count 190 (130-400) K/uL MPV 10.1 (7.4-10.4) fL Immature Gran % (Auto) 0.1 % Neut % (Auto) 53.9 % Lymph % (Auto) 33.5 % [place] % (Auto) 10.2 % Eos % (Auto) 2.2 % Baso % (Auto) 0.1 % Immature Gran # (Auto) 0.01 (0.00-0.02) K/uL Neut # (Auto) 4.41 (1.4-6.5) K/uL Lymph # (Auto) 2.75 (1.2-3.4) K/uL [place] # (Auto) 0.84 H (0.11-0.59) K/uL Eos # (Auto) 0.18 (0-0.5) K/uL Baso # (Auto) 0.01 (0-0.2) K/uL Absolute Nucleated RBC (0-0) K/uL Nucleated RBC % (auto) % RBC Morphology Unremarkable Microcytosis Ovalocytes ESR (0-21) mm/hr Sodium 139 (136-145) mmol/L Potassium 3.8 (3.5-5.1) mmol/L Chloride 111 H (98-107) mmol/L Carbon Dioxide 24 (21-32) mmol/L Anion Gap 4.0 (3-11) BUN 8 (7-18) mg/dl Creatinine 0.45 L (0.6-1.2) mg/dl Est Cr Clr Drug Dosing 167.9 ml/min Est GFR ( Amer) > 150.0 Est GFR (Non-Af Amer) 141.2 BUN/Creatinine Ratio 18.7 (10-20) Glucose 88 (70-99) mg/dl Calcium 8.8 (8.5-10.1) mg/dl Magnesium 1.7 L (1.8-2.4) mg/dl Total Bilirubin (0.2-1) mg/dl AST (15-37) U/L ALT (12-78) U/L Alkaline Phosphatase (45-117) U/L Troponin I < 0.015 (0-0.045) ng/ml C-Reactive Protein (0-0.29) mg/dl Total Protein (6.4-8.2) gm/dl Albumin (3.4-5.0) gm/dl Globulin (2.5-4.0) gm/dl Albumin/Globulin Ratio (0.9-2) TSH < 0.005 L (0.300-4.500) uIu/ml Free T4 > 8.00 H (0.8-1.6) ng/dl Urine Color Yellow Urine Appearance Clear (Clear) Urine pH 6.0 (4.5-7.5) Ur Specific [place] 1.008 (1.000-1.030) Urine Protein Negative (Negative) Urine Glucose (UA) Negative (Negative) Urine Ketones Negative (Negative) Urine Blood Negative (Negative) Urine Nitrite Negative (Negative) Urine Bilirubin Negative (Negative) Urine Urobilinogen Negative (Negative) Ur Leukocyte Esterase Negative (Negative) POC Ur Test (NEG) Monoscreen (Negative) Influenza Type A (PCR) (Neg) Influenza Type B (PCR) (Neg) 05/26/19 05/26/19 05/26/19 Range/Units 02:50 01:08 01:08 WBC (4.8-10.8) K/uL RBC (4.2-5.4) M/uL Hgb (12.0-16.0) g/dL Hct (37-47) % MCV (80-100) fL MCH (25-34) pg MCHC (32-36) g/dL RDW Std Deviation (36.4-46.3) fL RDW Coeff of Haseeb (11.5-14.5) % Plt Count (130-400) K/uL MPV (7.4-10.4) fL Immature Gran % (Auto) % Neut % (Auto) % Lymph % (Auto) % [place] % (Auto) % Eos % (Auto) % Baso % (Auto) % Immature Gran # (Auto) (0.00-0.02) K/uL Neut # (Auto) (1.4-6.5) K/uL Lymph # (Auto) (1.2-3.4) K/uL [place] # (Auto) (0.11-0.59) K/uL Eos # (Auto) (0-0.5) K/uL Baso # (Auto) (0-0.2) K/uL Absolute Nucleated RBC (0-0) K/uL Nucleated RBC % (auto) % RBC Morphology Microcytosis Ovalocytes ESR 33 H (0-21) mm/hr Sodium (136-145) mmol/L Potassium (3.5-5.1) mmol/L Chloride (98-107) mmol/L Carbon Dioxide (21-32) mmol/L Anion Gap (3-11) BUN (7-18) mg/dl Creatinine (0.6-1.2) mg/dl Est Cr Clr Drug Dosing ml/min Est GFR ( Amer) Est GFR (Non-Af Amer) BUN/Creatinine Ratio (10-20) Glucose (70-99) mg/dl Calcium (8.5-10.1) mg/dl Magnesium (1.8-2.4) mg/dl Total Bilirubin (0.2-1) mg/dl AST (15-37) U/L ALT (12-78) U/L Alkaline Phosphatase (45-117) U/L Troponin I (0-0.045) ng/ml C-Reactive Protein (0-0.29) mg/dl Total Protein (6.4-8.2) gm/dl Albumin (3.4-5.0) gm/dl Globulin (2.5-4.0) gm/dl Albumin/Globulin Ratio (0.9-2) TSH (0.300-4.500) uIu/ml Free T4 (0.8-1.6) ng/dl Urine Color Urine Appearance (Clear) Urine pH (4.5-7.5) Ur Specific [place] (1.000-1.030) Urine Protein (Negative) Urine Glucose (UA) (Negative) Urine Ketones (Negative) Urine Blood (Negative) Urine Nitrite (Negative) Urine Bilirubin (Negative) Urine Urobilinogen (Negative) Ur Leukocyte Esterase (Negative) POC Ur Test NEG (NEG) Monoscreen Negative (Negative) Influenza Type A (PCR) (Neg) Influenza Type B (PCR) (Neg) 05/26/19 05/26/19 05/26/19 Range/Units 01:08 01:08 00:53 WBC 10.27 (4.8-10.8) K/uL RBC 5.26 (4.2-5.4) M/uL Hgb 12.0 (12.0-16.0) g/dL Hct 35.8 L (37-47) % MCV 68.1 L (80-100) fL MCH 22.8 L (25-34) pg MCHC 33.5 (32-36) g/dL RDW Std Deviation 36.7 (36.4-46.3) fL RDW Coeff of Haseeb 14.9 H (11.5-14.5) % Plt Count 205 (130-400) K/uL MPV 10.4 (7.4-10.4) fL Immature Gran % (Auto) 0.3 % Neut % (Auto) 65.6 % Lymph % (Auto) 23.8 % [place] % (Auto) 9.5 % Eos % (Auto) 0.7 % Baso % (Auto) 0.1 % Immature Gran # (Auto) 0.03 H (0.00-0.02) K/uL Neut # (Auto) 6.74 H (1.4-6.5) K/uL Lymph # (Auto) 2.44 (1.2-3.4) K/uL [place] # (Auto) 0.98 H (0.11-0.59) K/uL Eos # (Auto) 0.07 (0-0.5) K/uL Baso # (Auto) 0.01 (0-0.2) K/uL Absolute Nucleated RBC 0.00 (0-0) K/uL Nucleated RBC % (auto) 0.0 % RBC Morphology Microcytosis Present Ovalocytes 1+ ESR (0-21) mm/hr Sodium 136 (136-145) mmol/L Potassium 3.6 (3.5-5.1) mmol/L Chloride 105 (98-107) mmol/L Carbon Dioxide 25 (21-32) mmol/L Anion Gap 6.0 (3-11) BUN 8 (7-18) mg/dl Creatinine 0.59 L (0.6-1.2) mg/dl Est Cr Clr Drug Dosing 128.1 ml/min Est GFR ( Amer) 149.7 Est GFR (Non-Af Amer) 129.2 BUN/Creatinine Ratio 13.7 (10-20) Glucose 111 H (70-99) mg/dl Calcium 9.3 (8.5-10.1) mg/dl Magnesium (1.8-2.4) mg/dl Total Bilirubin 0.5 (0.2-1) mg/dl AST 14 L (15-37) U/L ALT 29 (12-78) U/L Alkaline Phosphatase 142 H (45-117) U/L Troponin I < 0.015 (0-0.045) ng/ml C-Reactive Protein 0.78 H (0-0.29) mg/dl Total Protein 7.8 (6.4-8.2) gm/dl Albumin 3.5 (3.4-5.0) gm/dl Globulin 4.3 H (2.5-4.0) gm/dl Albumin/Globulin Ratio 0.8 L (0.9-2) TSH (0.300-4.500) uIu/ml Free T4 (0.8-1.6) ng/dl Urine Color Urine Appearance (Clear) Urine pH (4.5-7.5) Ur Specific [place] (1.000-1.030) Urine Protein (Negative) Urine Glucose (UA) (Negative) Urine Ketones (Negative) Urine Blood (Negative) Urine Nitrite (Negative) Urine Bilirubin (Negative) Urine Urobilinogen (Negative) Ur Leukocyte Esterase (Negative) POC Ur Test (NEG) Monoscreen (Negative) Influenza Type A (PCR) Neg for Influ A (Neg) Influenza Type B (PCR) Neg for Influ B (Neg) Diagnostic Findings EKG reviewed on admission: Sinus tachycardia, voltage criteria for possible LVH. T wave inversion in lateral leads Repeat EKG reviewed: sinus tachycardia with voltage criteria for LVH, T wave inversion present in anterior and lateral leads Chest Xray reviewed on admission: IMPRESSION: Minimal ill-defined bilateral opacities are better appreciated on CTA chest of the same day and are suggestive of a multifocal pneumonia. Chest CTA report reviewed on admission: IMPRESSION: 1. No evidence of acute pulmonary embolism 2. Bilateral ill-defined nodular opacities most pronounced within the right upper lobe and left lower lobe. There is mild bronchial wall thickening. The findings are consistent with a multilobar pneumonitis. Clinical and radiographic follow-up is recommended 3. Mildly enlarged hilar lymph nodes likely reactive 4. Multinodular thyroid goiter Telemetry reviewed: NSR and SInus tachycardia. No concerning arrhythmias. Medications Administered Current Inpatient Medications Acetaminophen (Tylenol) 650 mg PO Q4H PRN PRN Reason: Pain or Fever Stop: 06/25/19 05:14 Albuterol (Ventolin Hfa) 2 puffs INH Q4H PRN PRN Reason: Shortness Of Breath Or Wheezing Stop: 06/25/19 05:14 Benzonatate (Tessalon Perle) 100 mg PO TID PRN PRN Reason: Cough Stop: 06/25/19 05:14 Last Admin: 05/26/19 05:36 Dose: 100 mg Documented by: Fluticasone/Vilanterol (Breo Ellipta 100/25 Mcg Inh) 1 puffs INH DAILY CAMRYN Stop: 06/25/19 08:59 Last Admin: 05/26/19 09:47 Dose: 1 puffs Documented by: Sodium Chloride (Nss 1000ml) 1,000 mls @ 100 mls/hr IV .Q10H [facility]RYN Stop: 06/25/19 05:14 Last Admin: 05/26/19 05:36 Dose: 100 mls/hr Documented by: Ceftriaxone Sodium 1,000 mg/ (Dextrose) 60 mls @ 100 mls/hr IV Q24H CAMRYN; Protocol Stop: 06/02/19 07:59 Last Infusion: 05/26/19 10:16 Dose: Infused Documented by: Doxycycline Hyclate 100 mg/ (Dextrose) 110 mls @ 50 mls/hr IV Q12H [facility]RYN; Protocol Stop: 06/02/19 07:59 Last Admin: 05/26/19 09:39 Dose: 50 mls/hr Documented by: Magnesium Sulfate/Dextrose (Magnesium Sulfate / D5w) 1 gm in 100 mls @ 100 mls/hr IV Q1H [facility]N Stop: 05/26/19 12:29 Last Admin: 05/26/19 10:28 Dose: 100 mls/hr Documented by: Ioversol (Optiray 320 125ml) 125 ml IV ONCE PRN PRN Reason: Interaction Checking Stop: 05/30/19 05:05 Last Admin: 05/26/19 05:06 Dose: 78 ml Documented by: Methimazole (Tapazole) 20 mg PO BID [facility] Stop: 06/25/19 08:59 Last Admin: 05/26/19 09:48 Dose: 20 mg Documented by: Montelukast Sodium (Singulair) 10 mg PO DAILY [facility] Stop: 06/25/19 08:59 Last Admin: 05/26/19 09:48 Dose: 10 mg Documented by: Nitroglycerin (Nitrostat) 0.4 mg SL UD PRN PRN Reason: Chest Pain Stop: 06/25/19 05:14 Ondansetron HCl (Zofran) 4 mg IV Q6H PRN PRN Reason: Nausea Stop: 06/25/19 05:14 Oxycodone HCl (Roxicodone Immediate Rel) 5 mg PO Q6H PRN PRN Reason: Pain Stop: 06/09/19 10:04 Last Admin: 05/26/19 10:27 Dose: 5 mg Documented by: Propranolol HCl (Inderal La) 80 mg PO DAILY [facility] Stop: 06/25/19 08:59 Last Admin: 05/26/19 09:48 Dose: 80 mg Documented by:
--- NOTE | 2019-05-26 13:17 | Hospitalist Progress Note ---
Date of Service May 26, 2019 Assessment & Plan (1) Pneumonia: Patient is does not appear septic at this time. Believe her tachycardia secondary to her uncontrolled hyperthyroidism. Chest pain may be related to pneumonia but is unlikely to be cardiac per cardiology team. As she is tolera ting p.o. we will stop IV fluids and allow her to eat and drink to thirst. Continue Rocephin and doxycycline and monitor for fever and improvement overnight. (2) Chest pain: Likely related to pneumonia seen on CT scan. No evidence of acute pulmonary embolism on CT. Cardiac work-up was unremarkable for acute ischemia. Chest pain has improved with Toradol. (3) Graves disease: Ongoing uncontrolled hyperthyroidism. Free T4 and TSH reflect this. Continue methimazole and propanolol with close endocrine follow-up for continued monitoring and titration of medications. She has had ongoing hyperthyroidism for at least the past year. (4) Sinus tachycardia: Secondary to hyperthyroidism and possible underlying infection, patient does not appear septic at this time. (5) Marijuana smoker: Encouraged to quit as this is bad for her health and can increase the risk of marycarmen pneumonia. (6) Anemia: Possibly secondary to dilution or iron deficiency anemia secondary to menstruating female. We will continue to monitor. No acute indication for blood transfusion. (7) DVT prophylaxis: SCDs/ambulation. Full code Disposition-continue hospitalization for at least 1 more day to monitor for fever and clinical improvement. Lea Naidu DO [facility] Hospitalist Admission and Anticipated Discharge Date Admission Date: May 26, 2019 Anticipated date of discharge: 05/28/19 Subjective 23-year-old female who reports smoking marijuana presented with flulike illness. She was found to have multifocal pneumonia. She denies recent travel history. She significantly improved on antibiotics overnight and has remained afebrile. She denies any fevers or chills and reports an improvement in her symptoms overall. She is tolerating p.o. this morning. She has chest pain this morning and was seen by cardiology. She has ongoing uncontrolled hyperthyroidism and continues to take methimazole but has not followed up with endocrinology for complete work-up. We discussed the importance of this as outpatient and she verbalized understanding. Review of Systems Review of Systems: All systems reviewed & are unremarkable except as noted in Subjective Physical Exam Physical Exam: CONSTITUTIONAL: WNWD, vitals as above, generally well- appearing EYES: normal conjunctivae, no scleral icterus ENT: external ear and nose normal, oropharynx clear,MMM RESPIRATORY: clear to auscultation bilaterally, no crackles, rales or wheezes, normal respiratory effort CARDIOVASCULAR: regular rate and rhythm, S1 and 2 heard without murmurs, gallops or rubs, no JVD, no peripheral edema GASTROINTESTINAL: soft, nontender, nondistended MUSCULOSKELETAL: strength 5/5 throughout, head is normocephalic and atraumatic SKIN: warm and dry NEUROLOGIC: CN 2-12 grossly intact, no sensory deficit, normal cognition, normal speech, no tremor, no gross focal deficits. PSYCHIATRIC: alert cooperative and oriented to person, place and time. Results & Data ([facility]) Vital Signs (Past 12 Hours) Vital Signs Temp Pulse Pulse Resp BP BP BP 05/26/19 11:06 37.3 C 109 H 18 126/57 L 05/26/19 08:30 36.9 C 96 H 89 16 118/70 05/26/19 07:37 36.6 C 91 H 18 126/78 05/26/19 05:11 36.8 C 18 107/64 05/26/19 04:30 103 H 20 116/66 05/26/19 04:00 106 H 13 141/62 H 05/26/19 03:30 105 H 15 132/89 05/26/19 03:00 108 H 25 H 140/73 05/26/19 02:30 119 H 18 127/84 05/26/19 02:13 37.8 C H 05/26/19 02:10 128 H 14 05/26/19 02:00 127 H 19 140/72 05/26/19 01:50 126 H 29 H 05/26/19 01:40 122 H 36 H 05/26/19 01:30 119 H 24 132/68 05/26/19 01:20 120 H 29 H Pulse Ox 05/26/19 11:06 95 05/26/19 08:30 97 05/26/19 07:37 94 05/26/19 05:11 97 05/26/19 04:30 96 05/26/19 04:00 96 05/26/19 03:30 97 05/26/19 03:00 97 05/26/19 02:30 95 05/26/19 02:13 05/26/19 02:10 97 05/26/19 02:00 97 05/26/19 01:50 94 05/26/19 01:40 95 05/26/19 01:30 97 05/26/19 01:20 93 Laboratory Results Short CBC 05/26/19 05/26/19 Range/Units 01:08 07:18 WBC 10.27 8.20 (4.8-10.8) K/uL Hgb 12.0 10.5 L (12.0-16.0) g/dL Hct 35.8 L 31.6 L (37-47) % Plt Count 205 190 (130-400) K/uL BMP 05/26/19 05/26/19 01:08 07:18 Sodium 136 139 Potassium 3.6 3.8 Chloride 105 111 H Carbon Dioxide 25 24 BUN 8 8 Creatinine 0.59 L 0.45 L Glucose 111 H 88 Calcium 9.3 8.8 Cardiac Enzymes 05/26/19 05/26/19 Range/Units 01:08 07:18 Troponin I < 0.015 < 0.015 (0-0.045) ng/ml Liver Function 05/26/19 Range/Units 01:08 Total Bilirubin 0.5 (0.2-1) mg/dl AST 14 L (15-37) U/L ALT 29 (12-78) U/L Alkaline Phosphatase 142 H (45-117) U/L Albumin 3.5 (3.4-5.0) gm/dl Urine 05/26/19 Range/Units 02:50 Urine Color Yellow Urine Appearance Clear (Clear) Urine pH 6.0 (4.5-7.5) Ur Specific [place] 1.008 (1.000-1.030) Urine Protein Negative (Negative) Urine Glucose (UA) Negative (Negative) Medications Administered Current Inpatient Medications Acetaminophen (Tylenol) 650 mg PO Q4H PRN PRN Reason: Pain or Fever Stop: 06/25/19 05:14 Albuterol (Ventolin Hfa) 2 puffs INH Q4H PRN PRN Reason: Shortness Of Breath Or Wheezing Stop: 06/25/19 05:14 Benzonatate (Tessalon Perle) 100 mg PO TID PRN PRN Reason: Cough Stop: 06/25/19 05:14 Last Admin: 05/26/19 05:36 Dose: 100 mg Documented by: Fluticasone/Vilanterol (Breo Ellipta 100/25 Mcg Inh) 1 puffs INH DAILY [facility] Stop: 06/25/19 08:59 Last Admin: 05/26/19 09:47 Dose: 1 puffs Documented by: Ceftriaxone Sodium 1,000 mg/ (Dextrose) 60 mls @ 100 mls/hr IV Q24H [facility]; Protocol Stop: 06/02/19 07:59 Last Infusion: 05/26/19 10:16 Dose: Infused Documented by: Doxycycline Hyclate 100 mg/ (Dextrose) 110 mls @ 50 mls/hr IV Q12H [facility]; Protocol Stop: 06/02/19 07:59 Last Infusion: 05/26/19 11:51 Dose: Infused Documented by: Ioversol (Optiray 320 125ml) 125 ml IV ONCE PRN PRN Reason: Interaction Checking Stop: 05/30/19 05:05 Last Admin: 05/26/19 05:06 Dose: 78 ml Documented by: Methimazole (Tapazole) 20 mg PO BID [facility] Stop: 06/25/19 08:59 Last Admin: 05/26/19 09:48 Dose: 20 mg Documented by: Montelukast Sodium (Singulair) 10 mg PO DAILY [facility] Stop: 06/25/19 08:59 Last Admin: 05/26/19 09:48 Dose: 10 mg Documented by: Nitroglycerin (Nitrostat) 0.4 mg SL UD PRN PRN Reason: Chest Pain Stop: 06/25/19 05:14 Ondansetron HCl (Zofran) 4 mg IV Q6H PRN PRN Reason: Nausea Stop: 06/25/19 05:14 Oxycodone HCl (Roxicodone Immediate Rel) 5 mg PO Q6H PRN PRN Reason: Pain Stop: 06/09/19 10:04 Last Admin: 05/26/19 10:27 Dose: 5 mg Documented by: Propranolol HCl (Inderal La) 80 mg PO DAILY [facility] Stop: 06/25/19 08:59 Last Admin: 05/26/19 09:48 Dose: 80 mg Documented by:
[2019-05-26] MEDS ORDERED: COUGH DROP (SUGAR FREE) LOZ 24 LOZ/1 BOX BUCCAL PRN (15:33)
--- NOTE | 2019-05-26 16:27 | Electrocardiogram Report ---
Test Reason : Blood Pressure : / mmHG Vent. Rate : 117 BPM Atrial Rate : 117 BPM P-R Int : 176 ms QRS Dur : 074 ms QT Int : 294 ms P-R-T Axes : 052 072 068 degrees QTc Int : 410 ms Sinus tachycardia Possible Left atrial enlargement T wave abnormality, consider lateral ischemia Abnormal ECG When compared with ECG of 07-APR-2011 21:55, HR has increased Confirmed by Jorge Serrano ([id number]) on 05/26/2019 4:26:58 PM Referred By: REFERRED SELF Confirmed By:Jorge Serrano
--- NOTE | 2019-05-26 16:30 | Electrocardiogram Report ---
Test Reason : Blood Pressure : / mmHG Vent. Rate : 099 BPM Atrial Rate : 099 BPM P-R Int : 200 ms QRS Dur : 076 ms QT Int : 342 ms P-R-T Axes : 057 075 068 degrees QTc Int : 438 ms Normal sinus rhythm Possible Left atrial enlargement T wave abnormality, consider anterior ischemia Abnormal ECG When compared with ECG of 26-MAY-2019 00:50, (unconfirmed) T wave inversion more evident in Anterior leads Confirmed by Jorge Serrano ([id number]) on 05/26/2019 4:29:45 PM Referred By: REFERRED SELF Confirmed By:Jorge Serrano
[2019-05-26] MEDS: GUAIFENESIN/CODEINE 100MG/10MG 5ML UDC PO PRN (19:56)
[2019-05-26] MEDS: ACETAMINOPHEN 325 MG TAB PO PRN (21:04)
[2019-05-26] MEDS ORDERED: LEVALBUTEROL HCL 0.63 MG/3 ML NEB NEB PRN (21:08)
[2019-05-26] MEDS: ALBUTEROL HFA 8 GM INHALER INH PRN (21:18)
[2019-05-27] MEDS ORDERED: HYDROCODONE/HOMATROPINE SYRUP 5MG/1.5MG 5ML UDP PO STA (01:41)
[2019-05-27] MEDS: OXYCODONE HCL IR 5 MG TAB (IMMEDIATE RELEASE) PO PRN ×2 (03:23→16:45)
[2019-05-27 05:59] LABS: Hematocrit (blood only) 30.2 % (37-47); Hemoglobin 10.2 g/dL (12.0-16.0); Mean Corpuscular Hemoglobin 22.8 pg (25-34); Mean Corpuscular Hgb Conc 33.8 g/dL (32-36); Mean Corpuscular Volume 67.6 fL (80-100); Mean Platelet Volume 9.9 fL (7.4-10.4); Platelet Count 169 K/uL (130-400); RDW Coefficient of Variation 14.8 % (11.5-14.5); RDW Standard Deviation 36.8 fL (36.4-46.3); Red Blood Count 4.47 M/uL (4.2-5.4); White Blood Count 5.43 K/uL (4.8-10.8)
[2019-05-27 06:35] LABS: BUN Creatinine Ratio 12.6 (10-20); Blood Urea Nitrogen 6 mg/dl (7-18); Calcium 9.1 mg/dl (8.5-10.1); Carbon Dioxide 24 mmol/L (21-32); Chloride 110 mmol/L (98-107); Creatinine Clr Calc Pharmacy 164.2 ml/min; Est GFR (African American) > 150.0; Est GFR (Non-African American) 140.2; Glucose 96 mg/dl (70-99); Magnesium 1.6 mg/dl (1.8-2.4); Potassium 3.8 mmol/L (3.5-5.1); Sodium 138 mmol/L (136-145)
[2019-05-27] MEDS: cefTRIAXone SODIUM 1,000 MG in DEXTROSE 5% 50 ML IV SCH (07:51)
[2019-05-27] MEDS: DOXYCYCLINE HYCLATE 100 MG in DEXTROSE 5% 100 ML IV SCH ×2 (07:52→20:42)
[2019-05-27] MEDS: ACETAMINOPHEN 325 MG TAB PO PRN (08:26)
[2019-05-27] MEDS: FLUTICASONE/VILANTEROL 100/25MCG 14 PUFFS/INHALER INH SCH (08:33)
[2019-05-27] MEDS: PROPRANOLOL HCL LA 80 MG CAPCR PO SCH (08:34)
[2019-05-27] MEDS: methIMAzole 5 MG TABLET PO SCH ×2 (08:35→20:38)
[2019-05-27] MEDS: MONTELUKAST SODIUM 10 MG TABLET PO SCH (08:35)
[2019-05-27] MEDS ORDERED: KETOROLAC 30 MG/ML VIAL IV PRN (08:38)
--- NOTE | 2019-05-27 09:29 | XRay Report ---
XR chest 2V PA/lateral CLINICAL HISTORY: worsening pneumonia COMPARISON STUDY: 05/26/2019, CT scan dated 05/26/2019 FINDINGS: The heart is normal in size. There are worsening left basilar airspace opacities. The addit ional multifocal opacities visualized on the prior CT scan are difficult to identify on conventional radiographic evaluation.[There are no significant pleural effusions. IMPRESSION: Progressive left basilar airspace opacities. ACT 112: Negative or not required by law. Electronically signed by: Bahman Grant M.D. 05/27/2019 9:28 AM
[2019-05-27] MEDS ORDERED: METOPROLOL TARTRATE 1 MG/ML VIAL IV PRN (10:46)
--- NOTE | 2019-05-27 14:52 | Electrocardiogram Report ---
Test Reason : Blood Pressure : / mmHG Vent. Rate : 117 BPM Atrial Rate : 117 BPM P-R Int : 200 ms QRS Dur : 074 ms QT Int : 304 ms P-R-T Axes : 059 079 055 degrees QTc Int : 424 ms Sinus tachycardia Right atrial enlargement Nonspecific T wave abnormality Anterior leads Abnormal ECG When compared with ECG of 26-MAY-2019 02:58, T wave inversion less evident in Anterior leads Confirmed by Merlin Hopson ([id number]) on 05/27/2019 2:52:27 PM Referred By: REFERRED SELF Confirmed By:Merlin Hopson
[2019-05-27] MEDS: GUAIFENESIN/CODEINE 100MG/10MG 5ML UDC PO PRN (16:45)
[2019-05-27] MEDS ORDERED: MAGNESIUM SULFATE 50% 4 GM in SODIUM CHLORIDE 0.9% 500 ML IV SCH (19:30)
--- NOTE | 2019-05-27 22:48 | Hospitalist Progress Note ---
Date of Service May 27, 2019 Assessment & Plan (1) Pneumonia: Some slight worsening on the left base today, but after defervesced and overall symptoms are improved. She did have some tachycardia in the low 1 teens with a baseline heart rate in the 90s secondary to uncontrolled hyperthyroidism. After treatment of fever her heart rate improved into the 90s without additional Lopressor. She has some pleuritic chest pain related to her pneumonia. Continue Rocephin and doxycycline and monitor for fever (2) Chest pain: Likely related to pneumonia seen on CT scan. No evidence of acute pulmonary embolism on CT. Cardiac work-up was unremarkable for acute ischemia. Chest pain has improved with Toradol. (3) Graves disease: Ongoing uncontrolled hyperthyroidism. Free T4 and TSH reflect this. Continue methimazole and propanolol with close endocrine follow-up for continued monitoring and titration of medications. She has had ongoing hyperthyroidism for at least the past year. (4) Sinus tachycardia: Secondary to hyperthyroidism and possible underlying infection, patient does not appear septic at this time. (5) Marijuana smoker: Encouraged to quit as this is bad for her health and can increase the risk of marycarmen pneumonia. (6) Anemia: Possibly secondary to dilution or iron deficiency anemia. No acute indication for blood transfusion. PCP to follow as outpatient. (7) Hypomagnesemia: Likely secondary to uncontrolled hyperthyroidism. We will give her chronic magnesium supplements to take home. (8) DVT prophylaxis: SCDs/ambulation. Full code Disposition-continue hospitalization for at least 1 more day to monitor for fever and clinical improvement. Lea Naidu DO [facility] Hospitalist Admission and Anticipated Discharge Date Admission Date: May 26, 2019 Anticipated date of discharge: 05/28/19 Subjective Fever this morning to 39 C and while having fever she was more tachypneic. Chest x-ray reveals slight worsening of the left base pneumonia but she is moving air well on exam and she is feeling better since defervesced thing with ibuprofen and Tylenol. She does have some cough but is overall feeling improved chest pain was improved with ibuprofen Review of Systems Review of Systems: All systems reviewed & are unremarkable except as noted in Subjective Physical Exam Physical Exam: CONSTITUTIONAL: WNWD, vitals as above, generally well- appearing EYES: normal conjunctivae, no scleral icterus ENT: external ear and nose normal, MMM RESPIRATORY: clear to auscultation bilaterally, no crackles, rales or wheezes, normal respiratory effort CARDIOVASCULAR: regular rate and rhythm, S1 and 2 heard without murmurs, gallops or rubs, no JVD, no peripheral edema GASTROINTESTINAL: soft, nontender, nondistended MUSCULOSKELETAL: strength 5/5 throughout, head is normocephalic and atraumatic SKIN: warm and dry NEUROLOGIC: CN 2-12 grossly intact, no sensory deficit, normal cognition, normal speech, no tremor, no gross focal deficits. PSYCHIATRIC: alert cooperative and oriented to person, place and time. Results & Data ([facility]) Vital Signs (Past 12 Hours) Vital Signs Temp Pulse Resp BP Pulse Ox 05/27/19 21:16 66 16 97 05/27/19 15:47 36.9 C 82 16 146/72 H 93 05/27/19 11:34 36.4 C L 81 18 116/50 L 95 Laboratory Results Short CBC 05/27/19 Range/Units 05:37 WBC 5.43 (4.8-10.8) K/uL Hgb 10.2 L (12.0-16.0) g/dL Hct 30.2 L (37-47) % Plt Count 169 (130-400) K/uL BMP 05/27/19 05:37 Sodium 138 Potassium 3.8 Chloride 110 H Carbon Dioxide 24 BUN 6 L Creatinine 0.46 L Glucose 96 Calcium 9.1 Medications Administered Current Inpatient Medications Acetaminophen (Tylenol) 650 mg PO Q4H PRN PRN Reason: Pain or Fever Stop: 06/25/19 05:14 Last Admin: 05/27/19 08:26 Dose: 650 mg Documented by: Albuterol (Ventolin Hfa) 2 puffs INH Q4H PRN PRN Reason: Shortness Of Breath Or Wheezing Stop: 06/25/19 05:14 Last Admin: 05/26/19 21:18 Dose: 2 puffs Documented by: Benzonatate (Tessalon Perle) 100 mg PO TID PRN PRN Reason: Cough Stop: 06/25/19 05:14 Last Admin: 05/26/19 05:36 Dose: 100 mg Documented by: Fluticasone/Vilanterol (Breo Ellipta 100/25 Mcg Inh) 1 puffs INH DAILY [facility] Stop: 06/25/19 08:59 Last Admin: 05/27/19 08:33 Dose: 1 puffs Documented by: Guaifenesin/Codeine Phosphate (Robitussin-Ac Sugar Free) 5 ml PO Q6H PRN PRN Reason: Cough Stop: 06/25/19 19:29 Last Admin: 05/27/19 16:45 Dose: 5 ml Documented by: Ceftriaxone Sodium 1,000 mg/ (Dextrose) 60 mls @ 100 mls/hr IV Q24H [facility]; Protocol Stop: 06/02/19 07:59 Last Infusion: 05/27/19 09:09 Dose: Infused Documented by: Doxycycline Hyclate 100 mg/ (Dextrose) 110 mls @ 50 mls/hr IV Q12H [facility]; Protocol Stop: 06/02/19 07:59 Last Admin: 05/27/19 20:42 Dose: 50 mls/hr Documented by: Magnesium Sulfate 4 gm/ Sodium (Chloride) 508 mls @ 125 mls/hr IV .Q4H4M [facility] Stop: 05/27/19 23:33 Last Admin: 05/27/19 20:43 Dose: 125 mls/hr Documented by: Ioversol (Optiray 320 125ml) 125 ml IV ONCE PRN PRN Reason: Interaction Checking Stop: 05/30/19 05:05 Last Admin: 05/26/19 05:06 Dose: 78 ml Documented by: Ketorolac Tromethamine (Toradol) 30 mg IV Q6H PRN PRN Reason: Pain Stop: 06/01/19 08:37 Levalbuterol HCl (Xopenex 0.63 Mg/3 Ml Neb) 0.63 mg NEB Q4H PRN PRN Reason: Shortness Of Breath Or Wheezing Stop: 06/25/19 21:14 Last Admin: 05/27/19 21:16 Dose: 0.63 mg Documented by: Magnesium Oxide (Mag-Ox) 400 mg PO BID [facility] Stop: 06/27/19 08:59 Menthol (Nice) 1 anthony BUCCAL PRN PRN PRN Reason: Sore Throat Stop: 06/25/19 15:32 Last Admin: 05/26/19 16:27 Dose: 1 anthony Documented by: Methimazole (Tapazole) 20 mg PO BID [facility] Stop: 06/25/19 08:59 Last Admin: 05/27/19 20:38 Dose: 20 mg Documented by: Montelukast Sodium (Singulair) 10 mg PO DAILY [facility] Stop: 06/25/19 08:59 Last Admin: 05/27/19 08:35 Dose: 10 mg Documented by: Nitroglycerin (Nitrostat) 0.4 mg SL UD PRN PRN Reason: Chest Pain Stop: 06/25/19 05:14 Ondansetron HCl (Zofran) 4 mg IV Q6H PRN PRN Reason: Nausea Stop: 06/25/19 05:14 Oxycodone HCl (Roxicodone Immediate Rel) 5 mg PO Q6H PRN PRN Reason: Pain Stop: 06/09/19 10:04 Last Admin: 05/27/19 16:45 Dose: 5 mg Documented by: Propranolol HCl (Inderal La) 80 mg PO DAILY [facility] Stop: 06/25/19 08:59 Last Admin: 05/27/19 08:34 Dose: 80 mg Documented by:
[2019-05-28] MEDS ORDERED: HYDROCODONE/HOMATROPINE SYRUP 5MG/1.5MG 5ML UDP PO STA (00:03)
[2019-05-28] MEDS: OXYCODONE HCL IR 5 MG TAB (IMMEDIATE RELEASE) PO PRN (00:17)
[2019-05-28] MEDS: cefTRIAXone SODIUM 1,000 MG in DEXTROSE 5% 50 ML IV SCH (07:43)
[2019-05-28] MEDS: DOXYCYCLINE HYCLATE 100 MG in DEXTROSE 5% 100 ML IV SCH (07:43)
[2019-05-28] MEDS: FLUTICASONE/VILANTEROL 100/25MCG 14 PUFFS/INHALER INH SCH (08:16)
[2019-05-28] MEDS: MONTELUKAST SODIUM 10 MG TABLET PO SCH (08:17)
[2019-05-28] MEDS: PROPRANOLOL HCL LA 80 MG CAPCR PO SCH (08:17)
[2019-05-28] MEDS: methIMAzole 5 MG TABLET PO SCH (08:18)
[2019-05-28] MEDS ORDERED: MAGNESIUM OXIDE 400 MG TAB PO SCH (09:00)
[2019-05-28] MEDS: ALBUTEROL HFA 8 GM INHALER INH PRN (10:19)
[2019-05-28] MEDS ORDERED: HYDROCODONE/HOMATROPINE SYRUP 5MG/1.5MG 5ML UDP PO PRN (10:38)
[2019-05-28] MEDS ORDERED: PNEUMOCOCCAL POLYSACCHARIDES 25 MCG/0.5 ML VIAL/SYR IM ONE (11:00)
[2019-05-28] MEDS ORDERED: PNEUMOCOCCAL ADMINISTRATION CHARGE ONE (11:00)
--- NOTE | 2019-05-28 11:42 | Discharge Summary ---
Date of Service May 28, 2019 Admission HPI Per Admitting Provider HISTORY OF PRESENT ILLNESS: This is a 23-year-old female with past medical history significant for hyperthyroidism, Graves' disease, history of asthma, history of dysmenorrhea, history of sickle cell trait, presents with chest pain and shortness of breath. The patient says she had cold symptoms 2 weeks ago that was resolved, again yesterday she noticed started having runny nose, sore throat and also developed dry cough and chest pain and the chest pain is more when she is coughing and the pain is not associated with any positional change . In the ER, she was having tachycardia and mild temp spike. No leukocytosis. Flu was negative. Urinalysis was negative. Chest x-ray was unremarkable. Her EKG showed some T-wave inversions in the anterior leads. Troponin is negative. Question of pericarditis and received a dose of IV Toradol. When she came in, the chest pain was severe, but now it is 5/10 in severity, mostly in the left side. Otherwise, resting comfortably, hemodynamically stable. Denies any headache, no dizziness, no blurred vision, no earaches. Has some sore throat, no dysphagia. Appetite is okay. No nausea, no vomiting, no abdominal pain. No diarrhea or constipation. No blood in stools or black stools. No burning micturition, no hematuria. No rash, no swelling in the legs. Admission Exam Per Admitting Provider PHYSICAL EXAMINATION: GENERAL: The patient is of moderate build, not in acute distress. VITAL SIGNS: T-max 39, pulse 106, respiratory rate 13, blood pressure 141/62, oxygen 96% on room air. HEENT: Pupils equal, round, reactive to light. NECK: Supple. CARDIOVASCULAR: S1, S2 heard. Regular rate and rhythm. No murmur, no gallop. RESPIRATORY SYSTEM: Normal AP diameter. No accessory muscle use. No wheezing, no crackles. ABDOMEN: Soft, bowel sounds present, nontender. No distention. CENTRAL NERVOUS SYSTEM: Cranial nerves II-XII grossly intact. Nonfocal. EXTREMITIES: No edema, no erythema. Principal Diagnosis Multi lobar pneumonia Pleuritic chest pain Uncontrolled hyperthyroidism-Graves' disease Marijuana smoker Anemia Hypomagnesemia secondary to uncontrolled hyperthyroidism Discharge Exam CONSTITUTIONAL: WNWD, vitals as above, generally well-appearing EYES: normal conjunctivae, no scleral icterus ENT: external ear and nose normal, MMM RESPIRATORY: clear to auscultation bilaterally, no crackles, rales or wheezes, normal respiratory effort CARDIOVASCULAR: regular rate and rhythm, S1 and 2 heard without murmurs, gallops or rubs, no JVD, no peripheral edema GASTROINTESTINAL: soft, nontender, nondistended MUSCULOSKELETAL: strength 5/5 throughout, head is normocephalic and atraumatic SKIN: warm and dry NEUROLOGIC: CN 2-12 grossly intact, no sensory deficit, normal cognition, normal speech, no tremor, no gross focal deficits. PSYCHIATRIC: alert cooperative and oriented to person, place and time. Discharge Data Allergies Allergy/AdvReac Type Severity Reaction Status Date / Time No Known Allergies Allergy Unverified 05/26/19 00:53 Consultations 05/26/19 03:32 ED Decision to Admit Stat 05/26/19 08:00 Consult Cardiology Routine Ordered Studies 05/26/19 04:19 CT angio chest PE protocol Urgent Hospital Course (1) Pneumonia: (2) Chest pain: (3) Graves disease: (4) Marijuana smoker: (5) Anemia: (6) Hypomagnesemia: 23-year-old female patient presents with chest pain and shortness of breath. She was found to be tachycardic and had a mild temperature spike. No leukocytosis was present and flu PCR was negative. Urinalysis was negative. Chest x-ray was unremarkable. Her EKG revealed some T wave inversions in the anterior leads with a negative troponin. She was given a dose of IV Toradol with some improvement in the chest pain. She was admitted to the hospitalist service for further work-up and treatment. She underwent a CT with contrast to rule out pulmonary embolism and an echocardiogram was ordered. The echocardiogram revealed normal function, normal valves, and no pericardial effusion. Serial cardiac enzymes were drawn and negative. Cardiology was consulted in the setting of ongoing chest pain and EKG changes, and did not rodo mmend further cardiac workup. Her chest CT revealed no evidence of acute pulmonary embolism with bilateral ill-defined nodular opacities most pronounced within the right upper lobe and left lower lobe with mild bronchial wall thickening. The findings were consistent with a multilobar pneumonitis. The patient did report using marijuana and inhaling it. She is otherwise a non- smoker. She was placed on Rocephin and doxycycline and the next morning she had another temperature spike to 39 C. This was easily defervesced with a dose of Tylenol and ibuprofen and she was improved clinically the rest of her hospital stay. At time of discharge she was hemodynamically stable and afebrile and tolerating p.o. She was mentating and ambulating at baseline and discharged home in stable condition. She was administered a Pneumovax vaccine prior to discharge. She declined the flu vaccine. Imaging also did reveal multinodular thyroid goiter and the patient is notably hyperthyroid and has been for some time. She has a history of Graves' disease which is poorly controlled on current methimazole dose and nadolol. Her resting heart rate is in the 90s and magnesium is chronically low. She needs further work-up and treatment by endocrinology as an outpatient, and she verbalized understanding of this with intent to comply. Close primary care follow-up was recommended to ensure she is doing well and tolerating the antibiotics. It was strongly recommended to her that she quit smoking. Total Time Total Time Spent Total Time Spent (In Minutes): 60 Total Time Includes: Examination of the Patient, Discharge Planning, Medication Reconciliation and Communication With Other Providers Discharge Plan Discharge Items Patient Disposition: Home - Self-Care Reason For Visit: CHEST PAIN AND SOB Discharge Diagnosis: Multi lobar pneumonia Pleuritic chest pain Uncontrolled hyperthyroidism-Graves' disease Marijuana smoker Anemia Hypomagnesemia secondary to uncontrolled hyperthyroidism Activity: Resume your previous activity Non-emergency contact: Primary Care Provider Call non-emergency contact if: you have any medication questions and your symptoms worsen Follow-up/Referrals: Leoncio Savage DO [Primary Care Provider] - 06/01/19 12:45 pm Miguelito Cain PA-C [Physician Ergonomic Specialist] - 07/26/19 4:00 pm (Please call [facility] Endocrinology office, , should you need to change your appointment date.) Diet: Regular Addtl Attending Provider Instructions: Please take all medications as instructed on discharge list below. You are being given 1 week of continued antibiotics to treat your underlying pneumonia. It is recommended that you follow-up with your primary care doctor within 1 week to ensure you are still doing well on the medications and to touch base after this hospitalization. It is strongly recommended that he quit smoking and this is bad for your health. It was a pleasure taking care of you! Please call if you have any questions or problems. You can reach a [facility] hospitalist on duty at [facility] 24 hours a day by calling [phone]. Take care of yourself. DO [facility] Hospital[facility] Pending Studies at Discharge: Yes Studies:: finalized blood cultures, negative at time of discharge. Stand-Alone Forms: My [facility], Opioid Pain Management, Smoking Cessation Medications and DC Order Prescriptions: New magnesium oxide 400 mg (241.3 mg magnesium) Tablet 400 mg PO BID 30 Days Qty: 60 RF: 1 amoxicillin-pot clavulanate [Augmentin] 875-125 mg tablet 1 tab PO BID 7 Days Qty: 14 RF: 0 doxycycline hyclate 100 mg capsule 100 mg PO BID 7 Days Qty: 14 RF: 0 hydrocodone-homatropine [Hydromet] 5-1.5 mg/5 mL Syrup 10 ml PO Q6H PRN (Reason: cough) Qty: 473 RF: 0 Continued propranolol 80 mg Capsule,Extended Release 24 Hr 80 mg PO DAILY RF: 0 montelukast 10 mg tablet 10 mg PO DAILY RF: 0 albuterol sulfate [Ventolin HFA] 90 mcg/actuation HFA aerosol inhaler 2 puff INHALATION Q4H PRN (Reason: Shortness Of Breath Or Wheezing) RF: 0 Breo Ellipta 100-25 mcg/dose blister with device 1 inh INHALATION DAILY RF: 0 methimazole 10 mg Tablet 20 mg PO BID RF: 0 Discharge Orders: Discharge Order (Routine); Ordered 05/28/19 Ordered By: Lea Daniel/Other Patient Handouts: Graves Disease, Hyperthyroidism, Hypomagnesemia Dc, Pneumonia Dc Admission Data Admit Date/Time: 05/26/19 04:17 Attending Provider: Lea Naidu Admit Provider: Ap Mensah Primary Care Provider: Leoncio Savage Other Providers: Miguelito Lozano Other Interventions: Discharge Summary Assessment (RN) Last Done: 05/28/19 10:43 DC Date/Time DO NOT enter until pt leaves facility: 05/28/19 15:11
--- NOTE | 2019-05-28 16:39 | Electrocardiogram Report ---
Test Reason : Blood Pressure : / mmHG Vent. Rate : 076 BPM Atrial Rate : 076 BPM P-R Int : 190 ms QRS Dur : 076 ms QT Int : 354 ms P-R-T Axes : 023 067 057 degrees QTc Int : 398 ms Sinus rhythm with marked sinus arrhythmia Nonspecific T wave abnormality Abnormal ECG When compared with ECG of 27-MAY-2019 07:22, Vent. rate has decreased BY 41 BPM Non-specific change in ST segment in Lateral leads Confirmed by Jorge Serrano ([id number]) on 05/28/2019 4:39:23 PM Referred By: REFERRED SELF Confirmed By:Jorge Serrano
== END 2019-05-28 15:11 | disposition home or self-care (01) | DRG 193 ==
LOC: ED 00:19 → 2S 04:17 → 2E 08:51 → 3N 13:15

== ENCOUNTER 2019-12-01 12:21 | Inpatient (IN) ==
[2019-12-01] MEDS ORDERED: ONDANSETRON INJ 2 MG/ML 2 ML VIAL IV STA (12:40)
[2019-12-01] MEDS ORDERED: SODIUM CHLORIDE 0.9% 1000ML 1,000 ML IV ONE (12:40)
--- NOTE | 2019-12-01 12:43 | Emergency Department Note ---
Impression & Plan Appendicitis, Abdominal pain ED Provider Note NAME: EMILIA JAMES AGE: 24 SEX: F : 1995 ARRIVES VIA: Walk-In INFORMANT: Patient ED PROVIDER(S): Kurt Carranza DO CHIEF COMPLAINT: Right lower quadrant abdominal pain HPI: Patient is a 24-year-old female who was seen and evaluated by Robny Hahn at [facility] and was referred in for further evaluation. Patient notes that she has been having right lower quadrant abdominal pain since about 9:00 yesterday. He was associate with vomiting last night but that has now abated. Pain was initially diffuse throughout the belly but now focal in the right lower quadrant. She notes movement, bumps and laying back to make it worse. Denies any dysuria urgency or frequency. Last menstrual period finished 2 days ago. Patient denies any upper respiratory symptoms or any other complaints at this time. ROS: See above HPI for pertinent positives & negatives. A total of 10 systems re viewed and were otherwise negative. PAST MEDICAL HISTORY:See Below PAST SURGICAL HISTORY:See Below FAMILY HISTORY:See Below SOCIAL HISTORY:See Below HOME MEDICATIONS:See Below ALLERGIES:See Below VITALS:See Below PHYSICAL EXAMINATION: GENERAL: Sitting up in bed, alert, well appearing, well nourished, no distress, non-toxic EYE EXAM: normal conjunctiva. OROPHARYNX: no exudate, no erythema, lips, buccal mucosa, and tongue normal and mucous membranes are moist NECK: supple, no nuchal rigidity, no adenopathy, non-tender LUNGS: Clear to auscultation. Normal chest wall mechanics HEART: no murmurs, S1 normal and S2 normal ABDOMEN: abdomen soft, tender palpation right lower quadrant, normo-active bowel sounds, no masses, no rebound or guarding. BACK: Back is symmetrical on inspection and there is no deformity, no midline tenderness, no CVA tenderness. SKIN: no rashes and no bruising UPPER EXTREMITIES: upper extremities are grossly normal. LOWER EXTREMITIES: No pitting edema. NEURO EXAM: Normal sensorium, cranial nerves II-XII grossly intact, normal speech, no gross weakness of arms, no gross weakness of legs. MEDICAL DECISION MAKING: Patient is a 24-year-old female that presents ER for right lower quadrant abdominal pain which started in the past 24 hours. IV was established blood work was obtained. On exam she is clearly tender in the right lower quadrant. Labs show leukocytosis of 12.7 thousand. No significant anemia. BMP low with LFTs bilirubin and lipase was unremarkable. hCG was negative. UA was negative. CT abdomen pelvis shows a thickened and dilated appendix at 8 mm. She was given IV fluids. She is given IV Toradol and IV morphine. Pain improved. She was given IV Zofran and 2 g of cefoxitin. Discussed with general surgery and patient was taken to the OR. Triage Nursing notes reviewed. Prior medical records reviewed Vital Signs: reviewed and remarkable for tachycardic Differential diagnosis: Differential diagnoses includes but is not limited to gastritis, peptic ulcer disease, GERD, gallbladder disease, pancreatitis, small bowel obstruction, acute coronary syndrome, pericarditis, ischemic bowel, irritable bowel disease, irritable bowel syndrome, appendicitis, diverticulitis, malignancy, hernia, urinary tract infection, torsion, [/ectopic (if female)], perforation, trauma, infectious. ER treatment provided: See below Diagnostics interpreted by me: ECG: none Cardiac Monitoring: An order was placed for continuous cardiac monitoring. The monitor shows a rate of 90 with sinus rhythm. Laboratory studies: As stated above and show below. Imaging studies: CT abdomen pelvis shows thickened/dilated appendix Consultation(s): Discussed with Dr. Bosch from [facility] general surgery who evaluated the patient took her to the ER ED COURSE: Procedures: none Critical Care: None Past Med/Surg History Medical History Graves' disease Graves' orbitopathy History of use of contraceptive intrauterine device (IUD) Hx of suicide attempt Hyperthyroidism Surgical History History of elective Family History Other Lung disease Social History (Updated 07/08/19 @ 12:30 by Miguelito Cain PA-C) Smoking Status: Former smoker Tobacco Type: Cigarettes Hx Alcohol Use: Yes Hx Substance Use: Yes Last Used Substance Other:: daily Preferred Language: Bengali Communication Ability: Effective College Director Required: No Beliefs That Will Affect Care: None marital status: Single Current Living Situation: Family Current Living Situation Comment: grandmother Feels Safe at Home: Yes Allergies Allergies Allergy/AdvReac Type Severity Reaction Status Date / Time No Known Allergies Allergy Unverified 12/01/19 14:36 Home Meds Home Medications Medication Instructions Recorded Confirmed albuterol sulfate [Ventolin HFA] 2 puff INHALATION Q4H PRN 05/26/19 12/01/19 montelukast 10 mg PO QAM 05/26/19 12/01/19 propranolol 80 mg PO QAM 05/26/19 12/01/19 Results & Data (ED) Vital Signs Vital Signs - 24 hr 12/01/19 12:22 12/01/19 14:33 12/01/19 16:55 Temperature 37.2 C Temperature Source Oral Pulse Rate 115 H 70 Pulse Rate [Finger] 78 Pulse Rhythm [Finger] Pulse Strength [Finger] Respiratory Rate 20 16 16 Respiratory Effort / Characteristics Non-Labored Spontaneous Respiratory Depth Normal Respiratory Pattern Regular Blood Pressure 118/73 123/63 Blood Pressure [Right Arm] 123/53 L Blood Pressure Mean 88 Blood Pressure Mean [Right Arm] 76 Blood Pressure Position [Right Arm] Pulse Oximetry 97 98 98 Oxygen Delivery Method Room Air Room Air Room Air Sepsis Recent Fever Within 48 Hours No Sepsis New/Unexplained Change in Mental Status N/A Sepsis Action Taken by Nursing No Action Required 12/01/19 17:01 Temperature 37.1 C Temperature Source Temporal Artery Scan Pulse Rate Pulse Rate [Finger] 93 H Pulse Rhythm [Finger] Regular Pulse Strength [Finger] Normal Respiratory Rate 18 Respiratory Effort / Characteristics Non-Labored Spontaneous Respiratory Depth Normal Respiratory Pattern Regular Blood Pressure Blood Pressure [Right Arm] 134/67 Blood Pressure Mean Blood Pressure Mean [Right Arm] 89 Blood Pressure Position [Right Arm] Semi-fowlers Pulse Oximetry 99 Oxygen Delivery Method Room Air Sepsis Recent Fever Within 48 Hours Sepsis New/Unexplained Change in Mental Status Sepsis Action Taken by Nursing Laboratory Data Result diagrams: 12/01/19 13:00 12/01/19 14:20 Lab Results 12/01/19 12/01/19 12/01/19 Range/Units 13:00 13:00 13:00 WBC 12.76 H (4.8-10.8) K/uL RBC 5.31 (4.2-5.4) M/uL Hgb 12.3 (12.0-16.0) g/dL Hct 36.6 L (37-47) % MCV 68.9 L (80-100) fL MCH 23.2 L (25-34) pg MCHC 33.6 (32-36) g/dL RDW Std Deviation 36.6 (36.4-46.3) fL RDW Coeff of Haseeb 14.6 H (11.5-14.5) % Plt Count 266 (130-400) K/uL MPV 10.5 H (7.4-10.4) fL Immature Gran % (Auto) 0.2 % Neut % (Auto) 60.6 % Lymph % (Auto) 27.2 % Tyrrell % (Auto) 11.8 % Eos % (Auto) 0.2 % Baso % (Auto) 0.0 % Neut # (Auto) 7.72 H (1.4-6.5) K/uL Lymph # (Auto) 3.47 H (1.2-3.4) K/uL Tyrrell # (Auto) 1.51 H (0.11-0.59) K/uL Eos # (Auto) 0.03 (0-0.5) K/uL Baso # (Auto) 0.00 (0-0.2) K/uL Immature Gran # (Auto) 0.03 H (0.00-0.02) K/uL Hypochromasia Present Microcytosis Present Sodium 138 (136-145) mmol/L Potassium (3.5-5.1) mmol/L Chloride 106 (98-107) mmol/L Carbon Dioxide 27 (21-32) mmol/L Anion Gap 5.0 (3-11) BUN 9 (7-18) mg/dl Creatinine 0.63 (0.6-1.2) mg/dl Est Cr Clr Drug Dosing 129.2 ml/min Est GFR ( Amer) 145.5 Est GFR (Non-Af Amer) 125.5 BUN/Creatinine Ratio 15.0 (10-20) Glucose 104 H (70-99) mg/dl Calcium 9.3 (8.5-10.1) mg/dl Total Bilirubin 0.8 (0.2-1) mg/dl AST (15-37) U/L ALT 27 (12-78) U/L Alkaline Phosphatase 125 H (45-117) U/L Total Protein 7.6 (6.4-8.2) gm/dl Albumin 3.5 (3.4-5.0) gm/dl Globulin 4.1 H (2.5-4.0) gm/dl Albumin/Globulin Ratio 0.9 (0.9-2) Lipase 36 L (73-393) U/L HCG, Qual Cancelled Urine Color Urine Appearance (Clear) Urine pH (4.5-7.5) Ur Specific Jay (1.000-1.030) Urine Protein (Negative) Urine Glucose (UA) (Negative) Urine Ketones (Negative) Urine Blood (Negative) Urine Nitrite (Negative) Urine Bilirubin (Negative) Urine Urobilinogen (Negative) Ur Leukocyte Esterase (Negative) Urine WBC (Auto) (0-5) /hpf Urine RBC (Auto) (0-4) /hpf U Hyaline Cast (Auto) (0-5) /lpf U Epithel Cells (Auto) (0-5) /lpf Urine Bacteria (Auto) (Negative) 12/01/19 12/01/19 12/01/19 Range/Units 14:20 14:20 14:30 WBC (4.8-10.8) K/uL RBC (4.2-5.4) M/uL Hgb (12.0-16.0) g/dL Hct (37-47) % MCV (80-100) fL MCH (25-34) pg MCHC (32-36) g/dL RDW Std Deviation (36.4-46.3) fL RDW Coeff of Haseeb (11.5-14.5) % Plt Count (130-400) K/uL MPV (7.4-10.4) fL Immature Gran % (Auto) % Neut % (Auto) % Lymph % (Auto) % Tyrrell % (Auto) % Eos % (Auto) % Baso % (Auto) % Neut # (Auto) (1.4-6.5) K/uL Lymph # (Auto) (1.2-3.4) K/uL Tyrrell # (Auto) (0.11-0.59) K/uL Eos # (Auto) (0-0.5) K/uL Baso # (Auto) (0-0.2) K/uL Immature Gran # (Auto) (0.00-0.02) K/uL Hypochromasia Microcytosis Sodium (136-145) mmol/L Potassium 3.5 (3.5-5.1) mmol/L Chloride (98-107) mmol/L Carbon Dioxide (21-32) mmol/L Anion Gap (3-11) BUN (7-18) mg/dl Creatinine (0.6-1.2) mg/dl Est Cr Clr Drug Dosing ml/min Est GFR ( Amer) Est GFR (Non-Af Amer) BUN/Creatinine Ratio (10-20) Glucose (70-99) mg/dl Calcium (8.5-10.1) mg/dl Total Bilirubin (0.2-1) mg/dl AST 13 L (15-37) U/L ALT (12-78) U/L Alkaline Phosphatase (45-117) U/L Total Protein (6.4-8.2) gm/dl Albumin (3.4-5.0) gm/dl Globulin (2.5-4.0) gm/dl Albumin/Globulin Ratio (0.9-2) Lipase (73-393) U/L HCG, Qual Negative Urine Color Yellow Urine Appearance Clear (Clear) Urine pH 6.0 (4.5-7.5) Ur Specific Jay 1.011 (1.000-1.030) Urine Protein Negative (Negative) Urine Glucose (UA) Negative (Negative) Urine Ketones Negative (Negative) Urine Blood 1+ H (Negative) Urine Nitrite Negative (Negative) Urine Bilirubin Negative (Negative) Urine Urobilinogen Negative (Negative) Ur Leukocyte Esterase Negative (Negative) Urine WBC (Auto) 1-5 (0-5) /hpf Urine RBC (Auto) 0-4 (0-4) /hpf U Hyaline Cast (Auto) 0 (0-5) /lpf U Epithel Cells (Auto) >30 H (0-5) /lpf Urine Bacteria (Auto) Negative (Negative) Administered Medications Discontinued Medications Bacitracin (Bacitracin Oint 15 Gm Tube) Confirm Administered Dose 45 appln .ROUTE .Zapnip Stop: 12/01/19 17:12 Last Admin: 12/01/19 18:23 Dose: 45 appln Documented by: [id number] Bupivacaine HCl (Bupivacaine 0.5 % 5 Mg/1 Ml Mpf 30ml Vial) Confirm Administered Dose 30 ml .ROUTE .JAMF Software ONE Stop: 12/01/19 17:12 Last Admin: 12/01/19 18:23 Dose: 20 ml Documented by: [id number] Sodium Chloride (Nss 1000ml) 1,000 mls @ 999 mls/hr IV .Q1H1M ONE Stop: 12/01/19 13:40 Last Infusion: 12/01/19 14:17 Dose: 0 mls/hr Documented by: [id number] Admin: 12/01/19 13:07 Dose: 999 mls/hr Documented by: [id number] Cefoxitin Sodium (Mefoxin) 2,000 mg in 60 mls @ 100 mls/hr IV NOW STA Stop: 12/01/19 16:07 Last Infusion: 12/01/19 16:22 Dose: 0 mls/hr Documented by: [id number] Admin: 12/01/19 15:46 Dose: 100 mls/hr Documented by: [id number] Ioversol (Ioversol 100ml) 94 ml IV ONCE ONE Stop: 12/01/19 14:59 Last Admin: 12/01/19 14:59 Dose: 94 ml Documented by: [id number] Ketorolac Tromethamine (Ketorolac Tromethamine 15 Mg/Ml Vial) 10 mg IV NOW ONE Stop: 12/01/19 12:41 Last Admin: 12/01/19 13:32 Dose: 10 mg Documented by: [id number] Lidocaine HCl (Lidocaine Hcl 1% 20 Ml Vial) Confirm Administered Dose 20 ml .ROUTE .STK-MED ONE Stop: 12/01/19 17:12 Last Admin: 12/01/19 18:23 Dose: 20 ml Documented by: [id number] Morphine Sulfate (Morphine Sulfate 4 Mg/Ml 1 Ml Carp\Vial) 4 mg IV NOW STA Stop: 12/01/19 14:24 Last Admin: 12/01/19 14:34 Dose: 4 mg Documented by: [id number] Ondansetron HCl (Ondansetron Inj 2 Mg/Ml 2 Ml Vial) 4 mg IV NOW STA Stop: 12/01/19 12:41 Last Admin: 12/01/19 13:05 Dose: 4 mg Documented by: [id number] Discharge Plan Visit Data Chief Complaint: Abdominal Pain Stated Complaint: RT SIDED ABD PAIN ED Provider: Kurt Carranza Discharge Problem: Appendicitis, Abdominal pain Patient Disposition: Being Evaluated by Surgeon Discharge Instructions Interventions: ED Discharge Assessment Last Done: 12/01/19 16:55 Discharge Problem: Appendicitis Qualifiers: Appendicitis type: acute appendicitis Acute appendicitis type: other Qualified Code(s): K35.890 - Other acute appendicitis without perforation or gangrene Abdominal pain Qualifiers: Abdominal location: right lower quadrant Qualified Code(s): R10.31 - Right lower quadrant pain
[2019-12-01] MEDS: KETOROLAC TROMETHAMINE 15 MG/ML VIAL IV ONE ×2 (13:07→13:32)
[2019-12-01 13:11] LABS: Eosinophils # (auto) 0.03 K/uL (0-0.5); Eosinophils % (auto) 0.2 %; Hematocrit (blood only) 36.6 % (37-47); Hemoglobin 12.3 g/dL (12.0-16.0); Immature Granulocytes # (auto) 0.03 K/uL (0.00-0.02); Immature Granulocytes % (auto) 0.2 %; Lymphocytes # (auto) 3.47 K/uL (1.2-3.4); Lymphocytes % (auto) 27.2 %; Mean Corpuscular Hemoglobin 23.2 pg (25-34); Mean Corpuscular Hgb Conc 33.6 g/dL (32-36); Mean Corpuscular Volume 68.9 fL (80-100); Mean Platelet Volume 10.5 fL (7.4-10.4); Monocytes # (auto) 1.51 K/uL (0.11-0.59); Monocytes % (auto) 11.8 %; Neutrophils # (auto) 7.72 K/uL (1.4-6.5); Neutrophils % (auto) 60.6 %; Platelet Count 266 K/uL (130-400); RDW Coefficient of Variation 14.6 % (11.5-14.5); RDW Standard Deviation 36.6 fL (36.4-46.3); Red Blood Count 5.31 M/uL (4.2-5.4); White Blood Count 12.76 K/uL (4.8-10.8)
[2019-12-01 13:30] LABS: Hypochromasia Present; Microcytosis Present
[2019-12-01 13:32] LABS: Est GFR (African American) 145.5; Est GFR (Non-African American) 125.5
[2019-12-01 13:33] LABS: Albumin Globulin Ratio 0.9 (0.9-2); Albumin Level 3.5 gm/dl (3.4-5.0); Bilirubin,Total 0.8 mg/dl (0.2-1); Calcium 9.3 mg/dl (8.5-10.1); Creatinine Clr Calc Pharmacy 129.2 ml/min; Globulin 4.1 gm/dl (2.5-4.0); Total Protein 7.6 gm/dl (6.4-8.2)
[2019-12-01] MEDS ORDERED: MoRPHine SULFATE 4 MG/ML 1 ML CARP\\VIAL IV STA (14:23)
[2019-12-01 14:40] LABS: Potassium 3.5 mmol/L (3.5-5.1)
[2019-12-01 14:51] LABS: Pregnancy Test, Serum Negative (Negative)
[2019-12-01] MEDS ORDERED: IOVERSOL 100ml IV ONE (14:58)
[2019-12-01 15:02] LABS: Appearance Urine Clear (Clear); Bacteria Urine Automated Negative (Negative); Bilirubin Urine Negative (Negative); Blood Urine 1+ (Negative); Cast Urine Automated 0 /lpf (0-5); Color Urine Yellow; Epithelial Cell Urine Auto >30 /lpf (0-5); Glucose Urine UA Negative (Negative); Ketones Urine Negative (Negative); Leukocyte Esterase Urine Negative (Negative); Nitrite Urine Negative (Negative); Protein Urine Negative (Negative); RBC Urine Automated 0-4 /hpf (0-4); Specific Gravity Urine 1.011 (1.000-1.030); Urobilinogen Urine Negative (Negative)
--- NOTE | 2019-12-01 15:19 | CT Scan Report ---
CT abd pelvis oral and IV con CLINICAL HISTORY: Right lower quadrant abdominal pain COMPARISON STUDY: None. TECHNIQUE: The patient was scanned following administration of dilute oral contrast, and in a dynamic helical fashion during intravenous administration of 94 cc of Optiray 320 A dose lowering technique was utilized adhering to the principles of ALARA. CT DOSE: 328.72 mGy.cm FINDINGS: Lower chest: The heart is normal in size and configuration, without pericardial effusion. The lung ba ses and pleural spaces are clear. Liver: The contrast-enhanced liver is normal in size, contour, and attenuation. There is no intrahepa tic biliary ductal dilatation. The hepatic veins and portal veins are patent. Gallbladder: Unremarkable. Spleen: Normal in size and attenuation. Pancreas: Unremarkable. Adrenal glands: Unremarkable. Kidneys: There is symmetric renal cortical enhancement. The kidneys are normal in size without hydron ephrosis. Bowel: There are no transition zones indicate bowel obstruction. There is no evidence of acute divert iculitis. Terminal ileum appears normal. The appendix is mildly dilated measuring 8 mm. Although ther e is no periappendiceal stranding, there is equivocal minimal cecal tip edema. Clinical correlation i n regards to an early acute appendicitis is recommended.. Peritoneum: There is no intraperitoneal free air or abdominal ascites. Vasculature: The abdominal aorta is normal in course and caliber. Adenopathy: None. Pelvic viscera: The bladder, and pelvic viscera are unremarkable. Skeletal structures: No destructive osseous lesions are seen. IMPRESSION: 1. No evidence of bowel obstruction. No evidence of free air 2. No evidence of acute diverticulitis 3. Mildly dilated/thickened appendix measuring 8 mm without significant periappendiceal stranding. Cl inical correlation in regards to an early acute appendicitis is recommended ACT 112: Negative or not required by law. Electronically signed by: Bahman Grant M.D. 12/01/2019 3:18 PM
[2019-12-01] MEDS ORDERED: cefOXitin 2,000 MG/60 ML BAG IV STA (15:32)
--- NOTE | 2019-12-01 16:11 | Surgery Consultation ---
Date of Consultation December 01, 2019 CHIEF COMPLAINT: Right lower quadrant abdominal pain HPI: Patient is a 24-year-old female who was seen and evaluated by Robyn Hahn at [facility] and was referred in for further evaluation. Patient notes that she has been having right lower quadrant pain since about 9:00 yesterday. He was associate with vomiting last night but that has now abated. Pain was initially diffuse throughout the belly but now focal in the right lower quadrant. She notes movement bumps and laying back to make it worse. Denies any dysuria urgency or frequency. Last menstrual period finished 2 days ago. Patient denies any upper respiratory symptoms or any other complaints at this time. I ( Arturo Bosch MD) got a call for consult acute appendicitis, pt is still have RLQ pain, I reviewed pt's H/P, labs, CT scan with pt, ROS: See above HPI for pertinent positives & negatives. A total of 10 systems reviewed and were otherwise negative. PAST MEDICAL HISTORY: See Below PAST SURGICAL HISTORY: See Below FAMILY HISTORY: See Below SOCIAL HISTORY: See Below HOME MEDICATIONS: See Below ALLERGIES: See Below Assessment & Plan (1) Acute abdominal pain in right lower quadrant: (2) Acute appendicitis: pt is a 24 year-old female who presents to ER with one day history RLQ pain, IMP: acute abdominal pain, appendicitis, Plan, I recommend to do laparoscopic appendectomy possible open , D/W benefits, risks nad alternatives of the surgery, the risks - infection, bleeding, abscess, injury bowel, scar, incisional hernia, pt understood, she agrees with the surgery, I answered all questions, pt refused to test COVID-19, this is emergent surgery pt needed. Present on Admission?: Yes History of Present Illness Allergies Allergy/AdvReac Type Severity Reaction Status Date / Time No Known Allergies Allergy Unverified 12/01/19 14:36 Home Medications Home Medications Medication Instructions Recorded Confirmed Type albuterol sulfate [Ventolin HFA] 2 puff INHALATION Q4H PRN 05/26/19 12/01/19 History montelukast 10 mg PO QAM 05/26/19 12/01/19 History propranolol 80 mg PO QAM 05/26/19 12/01/19 History Patient History Medical History Graves' disease Graves' orbitopathy History of use of contraceptive intrauterine device (IUD) Hx of suicide attempt Hyperthyroidism Surgical History History of elective Family History Other Lung disease Social History (Updated 07/08/19 @ 12:30 by Miguelito Cain PA-C) Smoking Status: Former smoker Tobacco Type: Cigarettes Hx Alcohol Use: Yes Hx Substance Use: Yes Last Used Substance Other:: daily Preferred Language: Occitan Communication Ability: Effective Natural Gas Inspector Required: No Beliefs That Will Affect Care: None marital status: Single Current Living Situation: Family Current Living Situation Comment: grandmother Feels Safe at Home: Yes Review of Systems Review of Systems: All systems reviewed & are unremarkable except as noted in HPI & below Constitutional: as per Subjective / HPI Eyes: as per Subjective / HPI Ear, Nose, Mouth, Throat: as per Subjective / HPI Respiratory: as per Subjective / HPI Cardiovascular: as per Subjective / HPI Additional Comments: chest pain Gastrointestinal: as per Subjective / HPI Genitourinary: as per Subjective / HPI Musculoskeletal: as per Subjective / HPI Integumentary: as per Subjective / HPI Neurologic: as per Subjective / HPI headach Psychiatric: as per Subjective / HPI Endocrine: as per Subjective / HPI hyperthyroidism, Graves Physical Exam Constitutional: WD/WN, vitals as above well developed and well nourished Eyes: graves orbitopathy ENMT: external ear and nose normal, oropharynx normal Neck: enlarge thyroid gland, no tenderness, Respiratory: normal respiratory effort, lungs clear to auscultation Cardiovascular: RRR, no murmur, no edema Rate/Rhythm: regular rate and regular rhythm Heart Sounds: normal S1 and normal S2 Gastrointestinal (Abdomen): soft, tenderness at RLQ, no rebound pain, BS +, no distend Musculoskeletal: no cyanosis or clubbing, extremities motor strength 5/5 Skin: no rashes, warm and dry Neurologic: patellar DTR's 2+ bilat, sensation intact Psychiatric: Orientation: alert and oriented x 3 Results & Data ([facility]) Vital Signs (Past 12 Hours) Vital Signs Temp Pulse Pulse Resp BP BP Pulse Ox 12/01/19 14:33 78 16 123/53 L 98 12/01/19 12:22 37.2 C 115 H 20 118/73 97 Laboratory Results Abnormal lab results 12/01/19 12/01/19 12/01/19 Range/Units 13:00 13:00 14:20 WBC 12.76 H (4.8-10.8) K/uL Hct 36.6 L (37-47) % MCV 68.9 L (80-100) fL MCH 23.2 L (25-34) pg RDW Coeff of Haseeb 14.6 H (11.5-14.5) % MPV 10.5 H (7.4-10.4) fL Neut # (Auto) 7.72 H (1.4-6.5) K/uL Lymph # (Auto) 3.47 H (1.2-3.4) K/uL Chambers # (Auto) 1.51 H (0.11-0.59) K/uL Immature Gran # (Auto) 0.03 H (0.00-0.02) K/uL Glucose 104 H (70-99) mg/dl AST 13 L (15-37) U/L Alkaline Phosphatase 125 H (45-117) U/L Globulin 4.1 H (2.5-4.0) gm/dl Lipase 36 L (73-393) U/L Urine Blood (Negative) U Epithel Cells (Auto) (0-5) /lpf 12/01/19 Range/Units 14:30 WBC (4.8-10.8) K/uL Hct (37-47) % MCV (80-100) fL MCH (25-34) pg RDW Coeff of Haseeb (11.5-14.5) % MPV (7.4-10.4) fL Neut # (Auto) (1.4-6.5) K/uL Lymph # (Auto) (1.2-3.4) K/uL Chambers # (Auto) (0.11-0.59) K/uL Immature Gran # (Auto) (0.00-0.02) K/uL Glucose (70-99) mg/dl AST (15-37) U/L Alkaline Phosphatase (45-117) U/L Globulin (2.5-4.0) gm/dl Lipase (73-393) U/L Urine Blood 1+ H (Negative) U Epithel Cells (Auto) >30 H (0-5) /lpf Diagnostic Findings CT abd pelvis oral and IV con CLINICAL HISTORY: Right lower quadrant abdominal pain COMPARISON STUDY: None. TECHNIQUE: The patient was scanned following administration of dilute oral contrast, and in a dynamic helical fashion during intravenous administration of 94 cc of Optiray 320 A dose lowering technique was utilized adhering to the principles of ALARA. CT DOSE: 328.72 mGy.cm FINDINGS: Lower chest: The heart is normal in size and configuration, without pericardial effusion. The lung bases and pleural spaces are clear. Liver: The contrast-enhanced liver is normal in size, contour, and attenuation. There is no intrahepatic biliary ductal dilatation. The hepatic veins and portal veins are patent. Gallbladder: Unremarkable. Spleen: Normal in size and attenuation. Pancreas: Unremarkable. Adrenal glands: Unremarkable. Kidneys: There is symmetric renal cortical enhancement. The kidneys are normal in size without hydronephrosis. Bowel: There are no transition zones indicate bowel obstruction. There is no evidence of acute diverticulitis. Terminal ileum appears normal. The appendix is mildly dilated measuring 8 mm. Although there is no periappendiceal stranding, there is equivocal minimal cecal tip edema. Clinical correlation in regards to an early acute appendicitis is recommended.. Peritoneum: There is no intraperitoneal free air or abdominal ascites. Vasculature: The abdominal aorta is normal in course and caliber. Adenopathy: None. Pelvic viscera: The bladder, and pelvic viscera are unremarkable. Skeletal structures: No destructive osseous lesions are seen. IMPRESSION: 1. No evidence of bowel obstruction. No evidence of free air 2. No evidence of acute diverticulitis 3. Mildly dilated/thickened appendix measuring 8 mm without significant periappendiceal stranding. Clinical correlation in regards to an early acute appendicitis is recommended
[2019-12-01] MEDS ORDERED: ONDANSETRON INJ 2 MG/ML 2 ML VIAL IV PRN ×2 (16:49→18:48)
[2019-12-01] MEDS ORDERED: ePHEDrine sulfate 50 MG/ML AMP IV PRN (16:49)
[2019-12-01] MEDS ORDERED: HYDROmorphone INJ 1 MG/ML SYRINGE IV PRN (16:49)
[2019-12-01] MEDS ORDERED: MEPERIDINE HCL 25 MG/ML CARP/VIAL IV PRN (16:49)
[2019-12-01] MEDS ORDERED: PHENYLEPHRINE 100MCG/ML 5ML SYR IV PRN (16:49)
[2019-12-01] MEDS ORDERED: LABETALOL HCL IV 5 MG/ML 20ML IV PRN (16:49)
[2019-12-01] MEDS ORDERED: ATROPINE SULFATE 0.1 MG/ML 10ML SYR IV PRN (16:49)
--- NOTE | 2019-12-01 17:08 | Anesthesiology Consultation ---
Date of Service December 01, 2019 The patient is refusing to be tested for Covid 19. She has no symptoms of Covid 19 and has not had any known exposure to Covid 19. Assessment & Plan (1) Encounter for pre-operative examination: Chart Review Chart Review: Acceptable Risk for Surgery and Patient NOT seen in Pre Admission Testing Consults Requested none History Surgery Operation Date: 12/01/19 11:15 Proposed Procedures p Laparoscopic Appendectomy - Arturo Bosch MD Height/Weight Height: 5 ft 4 in Weight: 66.5 kg Allergies Allergy/AdvReac Type Severity Reaction Status Date / Time No Known Allergies Allergy Unverified 12/01/19 14:36 Medications Home Medications Medication Instructions Recorded Confirmed Last Taken albuterol sulfate [Ventolin HFA] 2 puff INHALATION Q4H PRN 05/26/19 12/01/19 Unknown montelukast 10 mg PO QAM 05/26/19 12/01/19 11/30/19 propranolol 80 mg PO QAM 05/26/19 12/01/19 11/30/19 NPO Date Last Intake of Fluids: 12/01/19 Time Last Intake of Fluids: 11:00 Last Intake of Fluids Comment: soda Date Last Intake of Solids: 12/01/19 Time Last Intake of Solids: 08:00 Last Intake of Solids Comment: bites of cereal Past Medical History Medical History Graves' disease Graves' orbitopathy History of use of contraceptive intrauterine device (IUD) Hx of suicide attempt Hyperthyroidism Past Family History Family History Other Lung disease Past Surgical History Surgical History History of elective Social History Smoking Status: Former smoker Hx Alcohol Use: Yes alcohol intake frequency: holidays/special occasions only Hx Substance Use: Yes substance use type: marijuana Last Used Substance Other:: daily Physical Exam Vital Signs Last Vital Signs Temp 37.1 C 12/01/19 17:01 Pulse 93 H 12/01/19 17:01 Resp 18 12/01/19 17:01 BP 134/67 12/01/19 17:01 Pulse Ox 99 12/01/19 17:01 Testing Laboratory Results 12/01/19 13:00 12/01/19 14:20 Urine Color Yellow 12/01/19 14:30 Urine Appearance Clear (Clear) 12/01/19 14:30 Urine pH 6.0 (4.5-7.5) 12/01/19 14:30 Ur Specific Minerva 1.011 (1.000-1.030) 12/01/19 14:30 Urine Protein Negative (Negative) 12/01/19 14:30 Urine Glucose (UA) Negative (Negative) 12/01/19 14:30 Urine Ketones Negative (Negative) 12/01/19 14:30 Urine Nitrite Negative (Negative) 12/01/19 14:30 Ur Leukocyte Esterase Negative (Negative) 12/01/19 14:30 Urine WBC (Auto) 1-5 /hpf (0-5) 12/01/19 14:30 Urine RBC (Auto) 0-4 /hpf (0-4) 12/01/19 14:30 U Hyaline Cast (Auto) 0 /lpf (0-5) 12/01/19 14:30 U Epithel Cells (Auto) >30 /lpf (0-5) H 12/01/19 14:30 Urine Bacteria (Auto) Negative (Negative) 12/01/19 14:30 Electrocardiogram Date: 05/28/19 Findings: + NSST changes SR with marked sinus arrhythmia, rate [address] abd pelvis oral and IV con CLINICAL HISTORY: Right lower quadrant abdominal pain COMPARISON STUDY: None. TECHNIQUE: The patient was scanned following administration of dilute oral contrast, and in a dynamic helical fashion during intravenous administration of 94 cc of Optiray 320 A dose lowering technique was utilized adhering to the principles of ALARA. CT DOSE: 328.72 mGy.cm FINDINGS: Lower chest: The heart is normal in size and configuration, without pericardial effusion. The lung bases and pleural spaces are clear. Liver: The contrast-enhanced liver is normal in size, contour, and attenuation. There is no intrahepatic biliary ductal dilatation. The hepatic veins and portal veins are patent. Gallbladder: Unremarkable. Spleen: Normal in size and attenuation. Pancreas: Unremarkable. Adrenal glands: Unremarkable. Kidneys: There is symmetric renal cortical enhancement. The kidneys are normal in size without hydronephrosis. Bowel: There are no transition zones indicate bowel obstruction. There is no evidence of acute diverticulitis. Terminal ileum appears normal. The appendix is mildly dilated measuring 8 mm. Although there is no periappendiceal stranding, there is equivocal minimal cecal tip edema. Clinical correlation in regards to an early acute appendicitis is recommended.. Peritoneum: There is no intraperitoneal free air or abdominal ascites. Vasculature: The abdominal aorta is normal in course and caliber. Adenopathy: None. Pelvic viscera: The bladder, and pelvic viscera are unremarkable. Skeletal structures: No destructive osseous lesions are seen. IMPRESSION: 1. No evidence of bowel obstruction. No evidence of free air 2. No evidence of acute diverticulitis 3. Mildly dilated/thickened appendix measuring 8 mm without significant periappendiceal stranding. Clinical correlation in regards to an early acute appendicitis is recommended ACT 112: Negative or not required by law. Electronically signed by: Bahman Grant M.D. 12/01/2019 3:18 PM Dictated: 12/01/19 1505
[2019-12-01] MEDS ORDERED: BACITRACIN OINT 15 GM TUBE ONE (17:11)
[2019-12-01] MEDS ORDERED: LIDOCAINE HCL 1% 20 ML VIAL ONE (17:11)
[2019-12-01] MEDS ORDERED: BUPIVACAINE 0.5 % 5 MG/1 ML MPF 30ML VIAL ONE (17:11)
[2019-12-01] MEDS ORDERED: cefOXitin 2,000 MG in DEXTROSE 5% 50 ML IV STA (17:24)
--- NOTE | 2019-12-01 17:24 | History & Physical Bridge Note ---
Date of Service December 01, 2019 History & Physical Bridge Note I have examined the patient, reviewed the History & Physical and in the interval since the performance of the History & Physical I have noted the following changes of clinical significance: no changes noted
--- NOTE | 2019-12-01 17:25 | Surgery Consultation ---
Date of Consultation December 01, 2019 Assessment & Plan (1) Acute abdominal pain in right lower quadrant: (2) Acute appendicitis: pt is a 24 year-old female who presents to ER with one day history RLQ pain, IMP: acute abdominal pain, appendicitis, Plan, I recommend to do laparoscopic appendectomy possible open , D/W benefits, risks nad alternatives of the surgery, the risks - infection, bleeding, abscess, injury bowel, scar, incisional hernia, pt understood, she agrees with the sb guilherme, I answered all questions, pt refused to test COVID-19, this is emergent surgery pt needed. History of Present Illness Attending Physician: Arturo Bosch MD Allergies Allergy/AdvReac Type Severity Reaction Status Date / Time No Known Allergies Allergy Unverified 12/01/19 14:36 Home Medications Home Medications Medication Instructions Recorded Confirmed Type albuterol sulfate [Ventolin HFA] 2 puff INHALATION Q4H PRN 05/26/19 12/01/19 History montelukast 10 mg PO QAM 05/26/19 12/01/19 History propranolol 80 mg PO QAM 05/26/19 12/01/19 History Patient History Medical History Graves' disease Graves' orbitopathy History of use of contraceptive intrauterine device (IUD) Hx of suicide attempt Hyperthyroidism Surgical History History of elective Family History Other Lung disease Social History (Updated 07/08/19 @ 12:30 by Miguelito Cain PA-C) Smoking Status: Former smoker Tobacco Type: Cigarettes Hx Alcohol Use: Yes Hx Substance Use: Yes Last Used Substance Other:: daily Preferred Language: Latvian Communication Ability: Effective Block Mechanic Required: No Beliefs That Will Affect Care: None marital status: Single Current Living Situation: Family Current Living Situation Comment: grandmother Feels Safe at Home: Yes Review of Systems Constitutional: as per Subjective / HPI Eyes: as per Subjective / HPI Ear, Nose, Mouth, Throat: as per Subjective / HPI Respiratory: as per Subjective / HPI Cardiovascular: as per Subjective / HPI Additional Comments: chest pain Gastrointestinal: as per Subjective / HPI Genitourinary: as per Subjective / HPI Musculoskeletal: as per Subjective / HPI Integumentary: as per Subjective / HPI Neurologic: as per Subjective / HPI headach Psychiatric: as per Subjective / HPI Endocrine: as per Subjective / HPI hyperthyroidism, Graves Physical Exam Constitutional: WD/WN, vitals as above well developed and well nourished ENMT: external ear and nose normal, oropharynx normal Respiratory: normal respiratory effort, lungs clear to auscultation Cardiovascular: RRR, no murmur, no edema Rate/Rhythm: regular rate and reg ular rhythm Heart Sounds: normal S1 and normal S2 Musculoskeletal: no cyanosis or clubbing, extremities motor strength 5/5 Skin: no rashes, warm and dry Neurologic: patellar DTR's 2+ bilat, sensation intact Psychiatric: Orientation: alert and oriented x 3 Results & Data ([facility]) Vital Signs (Past 12 Hours) Vital Signs Temp Pulse Pulse Resp BP BP Pulse Ox 12/01/19 17:01 37.1 C 93 H 18 134/67 99 12/01/19 16:55 70 16 123/63 98 12/01/19 14:33 78 16 123/53 L 98 12/01/19 12:22 37.2 C 115 H 20 118/73 97
[2019-12-01] MEDS ORDERED: MIDAZOLAM HCL 1 MG/ML 2ML VIAL ONE (17:36)
[2019-12-01] MEDS ORDERED: fentaNYL citrate 100 MCG/2 ML VIAL ONE ×2 (17:36→18:55)
[2019-12-01] MEDS ORDERED: LIDOCAINE HCL 2% 2 ML VIAL/AMP(20MG/ML) INFIL ONE (18:04)
[2019-12-01] MEDS ORDERED: GLYCOPYRROLATE 0.2 MG/ML VIAL ONE (18:04)
[2019-12-01] MEDS ORDERED: ROCURONIUM BROMIDE 10 MG/ML 5 ML VIAL IV ONE (18:04)
[2019-12-01] MEDS ORDERED: ONDANSETRON INJ 2 MG/ML 2 ML VIAL ONE (18:04)
[2019-12-01] MEDS ORDERED: DEXAMETHASONE SOD INJ 4 MG/ML VIAL ONE (18:04)
[2019-12-01] MEDS ORDERED: KETOROLAC 30 MG/ML VIAL ONE (18:04)
[2019-12-01] MEDS ORDERED: SUCCINYLCHOLINE 100MG/5ML SYR IV ONE (18:04)
[2019-12-01] MEDS ORDERED: NEOSTIGMINE METHYLSULFATE 5 MG/5 ML SYR ONE (18:04)
[2019-12-01] MEDS ORDERED: PROPOFOL IV EMULSION 10 MG/ML 20 ML VIAL IV ONE (18:04)
--- NOTE | 2019-12-01 18:38 | Post Operative Brief Note ---
Immediate Post Op Note v1 Date of Surgery December 01, 2019 Pre & Post Diagnosis Operation Date: 12/01/19 11:15 Pre-Op Diagnosis: Acute appendicitis Post-Op Diagnosis: Acute appendicitis I identified the patient and participated in the time-out.: Yes Procedure Operation Date: 12/01/19 11:15 Actual Procedures p Laparoscopic Appendectomy - Arturo Bosch MD Surgeon Arturo Bosch MD Wood Tile Installation Helper cytotechnologist/cytology supervisor Estimated Blood Loss 10 Findings Consistent with Post-Op Diagnosis acute appendicitis Fluids 1200ml Specimens appendix Anesthesia Type General Complications none Disposition Accompanied Patient To Recovery: Yes Disposition: Recovery Room Overlapping Procedure I was immediately available: during the entire case.
[2019-12-01] MEDS ORDERED: LABETALOL HCL IV 5 MG/ML 20ML IV ONE (18:59)
[2019-12-01] MEDS: fentaNYL citrate 100 MCG/2 ML VIAL IV PRN ×2 (19:17→19:22)
[2019-12-01] MEDS ORDERED: ALBUT/IPRATROP 3MG/0.5MG NEB 3 ML VIAL NEB STA (19:24)
[2019-12-01] MEDS ORDERED: ALBUT/IPRATROP 3MG/0.5MG NEB 3 ML VIAL ONE (19:24)
[2019-12-01] MEDS ORDERED: ACETAMINOPHEN 1,000 MG/100 ML VIAL IV STA (19:47)
[2019-12-01] MEDS ORDERED: ACETAMINOPHEN 1000 MG/100 ML IV IV ONE (19:47)
--- NOTE | 2019-12-01 20:09 | Anesthesiology Progress Note ---
Date of Service December 01, 2019 Anesthesia Post Procedure Vital Signs Vital Signs: Temp Pulse Pulse Pulse Resp BP BP 12/01/19 19:50 77 17 127/91 12/01/19 19:40 78 16 116/54 L 12/01/19 19:30 68 13 117/62 12/01/19 19:20 63 16 111/73 12/01/19 19:10 71 20 123/73 12/01/19 19:09 36.7 C 77 24 133/68 12/01/19 17:01 37.1 C 93 H 18 12/01/19 16:55 70 16 123/63 12/01/19 14:33 78 16 12/01/19 12:22 37.2 C 115 H 20 118/73 BP Pulse Ox 12/01/19 19:50 90 12/01/19 19:40 92 12/01/19 19:30 92 12/01/19 19:20 90 12/01/19 19:10 96 12/01/19 19:09 94 12/01/19 17:01 134/67 99 12/01/19 16:55 98 12/01/19 14:33 123/53 L 98 12/01/19 12:22 97 Pain Intensity Abdomen: Pain Intensity: 4 Transfer of Care Handoff Completed per policy Notes Mental Status: alert / awake / arousable Patient Amnestic to Procedure: Yes Nausea / Vomiting: adequately controlled Pain: adequately controlled Airway Patency, RR, SpO2: stable & adequate BP & HR: stable & adequate Hydration State: stable & adequate Anesthetic Complications: no major complications apparent and Pt Satisfied with anesthetic care Notes: The patient has a history of hyperthyroidism and smoking marijuana. The patient was intubated uneventfully and proceeded with the surgery without any problems. Upon extubation she was noted to have a large amount of mucous that was suctioned out by the MANAGER OF INTERNATIONAL. The patient was transferred to the PACU on oxygen. She was crying in pain despite receiving a large amount of fentanyl and a dose of Toradol. The patient's SpO2 was in the high 80s to low 90s and the patient would doze off and then wake up in pain. The patient was given a Duoneb treatment and an incentive spirometer. She was also given a dose of Ofirmev. The patient's SpO2 is now in the 90s on 4 L NC oxygen and her lungs sound better. She is more awake now. I spoke to the [facility]ist who will see the patient on the floor. The patient will be placed on continuous pulse oximetry.
[2019-12-01] MEDS ORDERED: LACTATED RINGER'S 1,000 ML IV SCH (20:15)
[2019-12-01] MEDS ORDERED: ALBUTEROL HFA 8 GM INHALER INH PRN (20:15)
[2019-12-01] MEDS: OXYCODONE/ACETAMINOPHEN 5mg/325mg TAB PO PRN (20:45)
[2019-12-01] MEDS: PROPRANOLOL HCL LA 80 MG CAPCR PO SCH (21:35)
[2019-12-01] MEDS: MONTELUKAST SODIUM 10 MG TABLET PO SCH (21:36)
[2019-12-01] MEDS ORDERED: XOPENEX/ATROVENT 0.63mg/0.5MG NEB COMBO NEB PRN (22:36)
[2019-12-01] MEDS: HYDROmorphone INJ 0.5 MG/0.5 ML SYR IV PRN (22:40)
[2019-12-01] MEDS ORDERED: IPRATROPIUM BROMIDE NEB SOLN 0.02% 2.5 ML VIAL INH PRN (22:45)
[2019-12-01] MEDS ORDERED: LEVALBUTEROL HCL 0.63 MG/3 ML NEB NEB PRN (22:45)
[2019-12-02] MEDS: OXYCODONE/ACETAMINOPHEN 5mg/325mg TAB PO PRN ×2 (01:18→09:44)
--- NOTE | 2019-12-02 01:22 | Consultation Report ---
DATE OF CONSULTATION: 12/01/2019 CHIEF COMPLAINT: Status post lap appendectomy, hypoxia post surgery. HISTORY OF PRESENT ILLNESS: This is a 24-year-old female with past medical history significant for hyperthyroidism, Graves' disease, history of asthma, history of dysmenorrhea, history of sickle cell trait, history of hypercalcemia due to hyperthyroidism, who came today because of abdominal pain right-sided since yesterday with nausea, vomiting, and found to have appendicitis on the CAT scan, status post laparoscopic appendectomy. The patient in the Recovery Room, was hypoxic, requiring 4-6 liters of oxygen. The patient smokes marijuana daily and she is complaining of pain and she was given fentanyl, Dilaudid for the pain and we were called for admission for hypoxia. The patient was here in the hospital in May, at that time she was treated for pneumonia. Currently, the patient says prior to surgery, she did not have any runny nose, sore throat or cough or fever/chills. No headache, no blurred vision, no earache. Normal bowel movement today morning. Normal bladder movements. No burning micturition. No rash. After surgery, she has some cough and she is feeling short of breath. While sleeping, she was saturating in the low 80s, currently placed on BiPAP and she is saturating fine. Able to give her history and talking in full sentences and seems to be comfortable. ALLERGIES: No known drug allergies. PAST MEDICAL HISTORY: As mentioned above. PAST SURGICAL HISTORY: Status post appendectomy today, , hysteroscopy, removal of intrauterine device. MEDICATIONS: Currently the patient is taking albuterol 2 puffs inhalation q. 4 hours p.r.n., montelukast 10 mg p.o. a.m., propranolol 80 mg p.o. a.m. FAMILY HISTORY: Significant for maternal grandmother had hepatitis C. SOCIAL HISTORY: Living with her grandmother. smokes marijuana daily. No alcohol use, no drugs. REVIEW OF SYMPTOMS: As per HPI. Rest of the symptoms negative. PHYSICAL EXAMINATION: GENERAL: The patient is of moderate build, not in acute distress. VITAL SIGNS: Temperature 36.5, pulse 109, respiratory rate 18, blood pressure 119/67, oxygen 99% on 40% FIO2 BiPAP. HEENT: Head atraumatic. NECK: Supple, no neck masses seen. CARDIOVASCULAR SYSTEM: S1, S2 heard. Regular rate and rhythm. No murmur, no gallop. RESPIRATORY SYSTEM: Normal AP diameter. No accessory muscle use. No wheezing, no crackles. ABDOMEN: Soft. Status post laparoscopic appendectomy. Dressing intact. No discharge seen. Bowel sounds sluggish. CENTRAL NERVOUS SYSTEM: Cranial nerves II-XII grossly intact. Nonfocal. EXTREMITIES: No edema, no erythema. LABORATORY DATA: WBC 12.7, hemoglobin 12.3, hematocrit 36.6, platelets 266. Sodium 130, potassium 3.5, chloride 106, bicarb 27, BUN 9, creatinine 0.6, serum glucose 104, calcium 9.3. Total bilirubin 0.8, AST 13, ALT 27, alkaline phosphatase 125. Lipase 36. HCG qualitative negative. Urinalysis, +1 blood; otherwise, negative. CT abdomen and pelvis: No evidence of bowel obstruction, no evidence of free air, no evidence of acute diverticulitis. Mildly dilated thickened appendix measuring 8 mm without significant periappendicular stranding. Chest x-ray, no acute findings. ASSESSMENT AND PLAN: This is a 24-year-old female presents with acute appendicitis. 1. Acute appendicitis, status post laparoscopic appendectomy. Further management as per General Surgery. 2. Hypoxia postop. The patient is with history of asthma as per previous admission records. Chest x-ray looks okay. Currently requiring BiPAP. Possibly could be from postop. We will continue BiPAP tonight. We will get an ABG. Closely monitor. Try to taper off BiPAP in a.m. and oxygen a.m. We will continue her nebs p.r.n. Continue on montelukast and albuterol p.r.n. 3. History of Graves' disease, on propranolol. Was on methimazole, but says stopped taking it. The patient says she has an appointment with Endocrinology in December. 4. Deep vein thrombosis prophylaxis and disposition as per Surgery. Addendum: refused abg, Refused covid testing prior to surgery. As patient having hypoxia planned for airborne isolation but patient vehemently refused. Refusing to be tested for covid pcr. Wanted to be checked for covid anti bodies as she thinks she mostly had covid when she was admitted for pneumonia in May. Says currently she doesnot have any covid symptoms. Says She was not SOB before surgery. [facility]
--- NOTE | 2019-12-02 02:51 | Operative Report (OR) ---
DATE OF OPERATION: 12/01/2019 PREOPERATIVE DIAGNOSIS: Acute appendicitis. POSTOPERATIVE DIAGNOSIS: Acute appendicitis. PROCEDURE: Laparoscopic appendectomy. SURGEON: Arturo Bosch MD ANESTHESIA: General. ESTIMATED BLOOD LOSS: About 10 mL. FINDINGS: Acute appendicitis. COMPLICATIONS: None. INDICATIONS FOR THE PROCEDURE: This is a 24-year-old female who presented with acute abdominal pain. The patient had a CT scan diagnosis of acute appendicitis. I recommended to do the laparoscopic appendectomy, possible open. I did talk to the patient about the benefits, the risks, alternate procedures. I indicated the risks may include but not limited such as bleeding, infection, injury to the bowel, abscess, scar, incisional hernia, bowel obstruction. The patient understands. She signed informed consent and I answered all questions. DETAILS OF PROCEDURE: We brought in the patient to the OR and put the patient in the supine position. The patient received SCDs on bilateral legs to prevent DVT. Also, patient received 2 grams cefoxitin IV for prophylactic antibiotic. The patient received general anesthesia without difficulties. Abdomen was prepped and draped in routine sterile fashion. After timeout, I injected local anesthesia by using 1% lidocaine mixed with 0.5% Marcaine just above the umbilicus. Then I made a small incision just above umbilicus, opened fascia and opened peritoneum under direct vision. I put a Ronni trocar in, connected to CO2 to create pneumoperitoneum. Flow rate is 6 liters per minute. Pressure not more than 14 mmHg. Once we got a nice pneumoperitoneum, we put the camera in, looked around the abdomen and no free flow. Then we put another two 5 mm trocars on the left lower quadrant area. Then we mobilized the right cecum and found the patient had acute appendicitis and we mobilized appendix. The appendix showed enlarged inflammation. We mobilized the appendiceal by using Harmonic, rechecked, no active bleeding. Then we used the 45 mm Endo-JULIETH stapler for transection on the base of the appendix, rechecked, the staple line intact. No leak, no active bleeding. Then we removed the appendix through the catch bag. Then we reinserted Ronni trocar in, connected to CO2 to create pneumoperitoneum. Again looked around the abdomen, there was no active bleeding. No leak from staple line and we removed all trocar under direct vision. No active bleeding noted from the trocar site. Pneumoperitoneum was released. Then I closed the umbilical incision, fascial layer by using #1 Vicryl [id number] x2, closed subcutaneous layer by using 2-0 Vicryl interruptedly, closed skin by using 4-0 Vicryl continuous running, closed another two 5 mm trocar sites skin only by using 4-0 Vicryl. Then we put the dressing on. The patient tolerated the procedure well. All instrument, needle, and sponge counts were correct x2 at the end of the case. The patient transferred to recovery room in stable condition. After the procedure, I did talk to the patient's mom on the phone about the OR finding and the procedure we did, she understands. I attest to the content of the Intraoperative Record and any orders documented therein. Any exception s are noted below.
[2019-12-02] MEDS: HYDROmorphone INJ 0.5 MG/0.5 ML SYR IV PRN ×3 (03:10→13:08)
--- NOTE | 2019-12-02 07:47 | XRay Report ---
XR chest 1V portable HISTORY: hypoxia COMPARISON: Chest 05/27/2019. FINDINGS: Bilateral perihilar hazy airspace opacities, left greater than right. The heart is top norm al in size. No pleural effusions. No pneumothorax. The trachea is midline and patent. IMPRESSION: Bilateral perihilar hazy airspace opacities, left greater than right. This favors an atypical pneumon ia and could be due to a viral process. Asymmetric pulmonary edema could also have a similar appearan ce in the appropriate clinical setting. ACT 112: Negative or not required by law. Electronically signed by: Maurilio Jang M.D. 12/02/2019 7:46 AM
[2019-12-02 08:43] LABS: Eosinophils # (auto) 0.01 K/uL (0-0.5); Eosinophils % (auto) 0.1 %; Hematocrit (blood only) 32.3 % (37-47); Hemoglobin 10.8 g/dL (12.0-16.0); Immature Granulocytes # (auto) 0.04 K/uL (0.00-0.02); Immature Granulocytes % (auto) 0.2 %; Lymphocytes # (auto) 2.83 K/uL (1.2-3.4); Lymphocytes % (auto) 17.3 %; Mean Corpuscular Hemoglobin 23.2 pg (25-34); Mean Corpuscular Hgb Conc 33.4 g/dL (32-36); Mean Corpuscular Volume 69.5 fL (80-100); Mean Platelet Volume 10.3 fL (7.4-10.4); Monocytes # (auto) 1.11 K/uL (0.11-0.59); Monocytes % (auto) 6.8 %; Neutrophils # (auto) 12.38 K/uL (1.4-6.5); Neutrophils % (auto) 75.6 %; Platelet Count 231 K/uL (130-400); RDW Coefficient of Variation 14.7 % (11.5-14.5); RDW Standard Deviation 37.2 fL (36.4-46.3); Red Blood Count 4.65 M/uL (4.2-5.4); White Blood Count 16.37 K/uL (4.8-10.8)
--- NOTE | 2019-12-02 09:04 | Surgery Progress Note ---
Date of Service pt developed hypoxia last night, pt was transferred to PCU, now pt is doing much better, O2 sat 97% on O2Mask, pt denies significant abdominal pain, she tolera vincent clear diet, no nausea, no vomiting, no fever December 02, 2019 Assessment & Plan (1) Acute abdominal pain in right lower quadrant: (2) Acute appendicitis: pt is a 24 year-old female who presents to ER with one day history RLQ pain, IMP: acute abdominal pain, appendicitis, Plan, I recommend to do laparoscopic appendectomy possible open , D/W benefits, risks and alternatives of the surgery, the risks - infection, bleeding, abscess, injury bowel, scar, incisional hernia, pt understood, she agrees with the surgery, I answered all questions, pt refused to test COVID-19, this is emergent surgery pt needed. 12/02/2019 9:02AM F/U S/P laparoscopic appendectomy, POD 1 doing fine, possible discharge home today or tomorrow, the post-op care instruction was given, F/U 2 weeks, Admission and Anticipated Discharge Date Admission Date: December 01, 2019 Review of Systems Constitutional: as per Subjective / HPI Eyes: as per Subjective / HPI Ear, Nose, Mouth, Throat: as per Subjective / HPI Respiratory: as per Subjective / HPI Cardiovascular: as per Subjective / HPI Additional Comments: chest pain Gastrointestinal: as per Subjective / HPI Genitourinary: as per Subjective / HPI Musculoskeletal: as per Subjective / HPI Integumentary: as per Subjective / HPI Neurologic: as per Subjective / HPI headach Psychiatric: as per Subjective / HPI Endocrine: as per Subjective / HPI hyperthyroidism, Graves Physical Exam Constitutional: WD/WN, vitals as above well developed and well nourished ENMT: external ear and nose normal, oropharynx normal Respiratory: normal respiratory effort, lungs clear to auscultation Cardiovascular: RRR, no murmur, no edema Rate/Rhythm: regular rate and regular rhythm Heart Sounds: normal S1 and normal S2 Gastrointestinal (Abdomen): mild incision site pain, no distend, all incisions intact, no redness, no drainage Musculoskeletal: no cyanosis or clubbing, extremities motor strength 5/5 Skin: no rashes, warm and dry Neurologic: patellar DTR's 2+ bilat, sensation intact Psychiatric: Orientation: alert and oriented x 3 Results & Data ([place]) Vital Signs (Past 12 Hours) Vital Signs Temp Pulse Pulse Resp BP Pulse Ox 12/02/19 07:51 89 99 12/02/19 07:37 101 H 22 99 12/02/19 07:28 37 C 96 H 28 H 120/64 100 12/02/19 03:30 96 H 22 96 12/02/19 03:05 36.9 C 110 H 22 117/69 96 12/02/19 03:03 82 L 12/02/19 01:36 85 24 92 12/01/19 23:34 78 25 H 97 12/01/19 23:15 37.1 C 80 14 117/71 99 12/01/19 22:19 109 H 18 119/67 99 12/01/19 22:04 60 27 H 99 12/01/19 21:45 76 18 83 L 12/01/19 21:26 110 H 79 L 12/01/19 21:21 100 H 17 119/72 89 L Laboratory Results Abnormal lab results 12/01/19 12/01/19 12/01/19 Range/Units 13:00 13:00 14:20 WBC 12.76 H (4.8-10.8) K/uL Hgb (12.0-16.0) g/dL Hct 36.6 L (37-47) % MCV 68.9 L (80-100) fL MCH 23.2 L (25-34) pg RDW Coeff of Haseeb 14.6 H (11.5-14.5) % MPV 10.5 H (7.4-10.4) fL Neut # (Auto) 7.72 H (1.4-6.5) K/uL Lymph # (Auto) 3.47 H (1.2-3.4) K/uL [place] # (Auto) 1.51 H (0.11-0.59) K/uL Immature Gran # (Auto) 0.03 H (0.00-0.02) K/uL Glucose 104 H (70-99) mg/dl AST 13 L (15-37) U/L Alkaline Phosphatase 125 H (45-117) U/L Globulin 4.1 H (2.5-4.0) gm/dl Lipase 36 L (73-393) U/L Urine Blood (Negative) U Epithel Cells (Auto) (0-5) /lpf 12/01/19 12/02/19 Range/Units 14:30 08:31 WBC 16.37 H (4.8-10.8) K/uL Hgb 10.8 L (12.0-16.0) g/dL Hct 32.3 L (37-47) % MCV 69.5 L (80-100) fL MCH 23.2 L (25-34) pg RDW Coeff of Haseeb 14.7 H (11.5-14.5) % MPV (7.4-10.4) fL Neut # (Auto) 12.38 H (1.4-6.5) K/uL Lymph # (Auto) (1.2-3.4) K/uL [place] # (Auto) 1.11 H (0.11-0.59) K/uL Immature Gran # (Auto) 0.04 H (0.00-0.02) K/uL Glucose (70-99) mg/dl AST (15-37) U/L Alkaline Phosphatase (45-117) U/L Globulin (2.5-4.0) gm/dl Lipase (73-393) U/L Urine Blood 1+ H (Negative) U Epithel Cells (Auto) >30 H (0-5) /lpf
[2019-12-02 09:17] LABS: Microcytosis Present
[2019-12-02] MEDS: PROPRANOLOL HCL LA 80 MG CAPCR PO SCH (09:20)
[2019-12-02 09:24] LABS: Albumin Level 2.7 gm/dl (3.4-5.0); BUN Creatinine Ratio 16.2 (10-20); Blood Urea Nitrogen 9 mg/dl (7-18); Calcium 8.7 mg/dl (8.5-10.1); Carbon Dioxide 28 mmol/L (21-32); Chloride 110 mmol/L (98-107); Creatinine Clr Calc Pharmacy 153.2 ml/min; Est GFR (African American) > 150.0; Est GFR (Non-African American) 132.9; Glucose 106 mg/dl (70-99); Potassium 3.8 mmol/L (3.5-5.1); Sodium 140 mmol/L (136-145)
[2019-12-02 09:37] LABS: Alanine Aminotransferase 21 U/L (12-78); Albumin Globulin Ratio 0.8 (0.9-2); Alkaline Phosphatase 94 U/L (45-117); Aspartate Aminotransferase 17 U/L (15-37); Bilirubin,Total 0.7 mg/dl (0.2-1); Globulin 3.4 gm/dl (2.5-4.0); Total Protein 6.1 gm/dl (6.4-8.2)
--- NOTE | 2019-12-02 14:31 | Hospitalist Progress Note ---
Date of Service December 02, 2019 Assessment & Plan (1) Acute appendicitis: (2) S/P appendectomy: Hypoxia Leukocytosis COVID-10 screening test pending -This is a patient who on 12/01/19 had Laparoscopic Appendectomy for acute appendictis -Patient also needed increased oxygen requirements post-operatively -the 12/01/2019: "Bilateral perihilar hazy airspace opacities, left greater than right. This favors an atypical pneumonia and could be due to a viral process. Asymmetric pulmonary edema could also have a similar appearance in the appropriate clinical setting." -Patient was very upset that overnight she was placed on airborne precaution because she denies any COVID-19 symptoms and she declined COVID-19 PCR testing. Instead, COVID-19 antibodies were drawn -Medicine consult was asked to follow up with patient after initial consultation performed by hospitalist Dr. Mensah -Bertin, Dr. Jamarcus Yap, the undersign express to the patient that there are still abnormal vital signs and abnormal labs post-operatively (WBC 16,370) regardless of whatever the level of suspicion for COVID-19 even though this suspicion may be low. And as industrial rehabilitation consultant I would recommend that patient stays further in the hospital for further IV antibiotics until the WBC trending down and ideally normalizes to less than 10,000. And in addition that patient should be back on room air before considering her respiratory status is normalized. Currently patient on 1 liter/min nasal cannula oxygen at rest but when motioning on the bed and talking, the oxygen saturation intermittently dips to low 90s and occasional 88% -While I recommended on repeat Chest X ray and formal testing of oxygenation with ambulation prior to discharge, patient is insistent that she wishes general surgery service to discharge her. History of Graves' disease - on propranolol DVT ppx: SCDs Admission and Anticipated Discharge Date Admission Date: December 01, 2019 Subjective -Bertin, Dr. Jamarcus Yap, the undersign express to the patient that there are still abnormal vital signs and abnormal labs post-operatively (WBC 16,370) regardless of whatever the level of suspicion for COVID-19 even though this suspicion may be low. And as industrial rehabilitation consultant I would recommend that patient stays further in the hospital for further IV antibiotics until the WBC trending down and ideally normalizes to less than 10,000. And in addition that patient should be back on room air before considering her respiratory status is normalized. Currently patient on 1 liter/min nasal cannula oxygen at rest but when motioning on the bed and talking, the oxygen saturation intermittently dips to low 90s and occasional 88% -While I recommended on repeat Chest X ray and formal testing of oxygenation with ambulation prior to discharge, patient is insistent that she wishes general surgery service to discharge her. Review of Systems Review of Systems: All systems reviewed & are unremarkable except as noted in Subjective Physical Exam Constitutional: WD/WN, vitals as above Eyes: PERRL, conjunctivae normal, anicteric sclerae ENMT: external ear and nose normal, oropharynx normal Neck: trachea midline, no thyromegaly normal visual inspection Respiratory: on nasal cannula oxygen Cardiovascular: Rate/Rhythm: + tachycardic Gastrointestinal (Abdomen): Percussion/Palpation: abdomen soft has dressing over the abdomen Musculoskeletal: Head/Neck/Chest: normocephalic and head atraumatic Neurologic: PERRL, EOMI, accommodation nl, no face palsy, no dysarthria Psychiatric: Orientation: alert and oriented x 3 Results & Data Results & Data ([facility]) Vital Signs (Past 12 Hours) Vital Signs Temp Pulse Pulse Resp BP Pulse Ox 12/02/19 13:14 102 H 91 12/02/19 11:40 37.4 C 103 H 24 135/86 95 12/02/19 10:19 110 H 95 12/02/19 09:45 115 H 97 12/02/19 07:51 89 99 12/02/19 07:37 101 H 22 99 12/02/19 07:28 37 C 96 H 28 H 120/64 100 12/02/19 03:30 96 H 22 96 12/02/19 03:05 36.9 C 110 H 22 117/69 96 12/02/19 03:03 82 L
--- NOTE | 2019-12-02 15:06 | XRay Report ---
XR chest 1V portable CLINICAL HISTORY: follow lung infiltrates. hypoxia COMPARISON STUDY: 12/01/2019 FINDINGS: There is marked progression in extensive bilateral pulmonary airspace opacities left more s evere than right. There are no significant pleural effusions. There is no pneumothorax. Diagnostic co nsiderations include pulmonary edema, a bilateral pneumonia, or pulmonary hemorrhage.[ IMPRESSION: 1. Marked progression in the extensive bilateral pulmonary airspace opacities. ACT 112: Negative or not required by law. Electronically signed by: Bahman Grant M.D. 12/02/2019 3:05 PM
--- NOTE | 2019-12-02 15:36 | Surgery Progress Note ---
Date of Service I reviewed CXR with radiologist, MPRESSION: 1. Marked progression in the extensive bilateral pulmonary airspace opacities.pt's )2 sat is 91-92% on 1 l/min.pt denies SOB, pt wants to increase her po percocet to 7.5mg, pt said she has some incision pain, pt denies nausea, no vomiting, she tolerated diet December 02, 2019 Assessment & Plan (1) Acute abdominal pain in right lower quadrant: (2) Acute appendicitis: pt is a 24 year-old female who presents to ER with one day history RLQ pain, IMP: acute abdominal pain, appendicitis, Plan, I recommend to do laparoscopic appendectomy possible open , D/W benefits, risks and alternatives of the surgery, the risks - infection, bleeding, abscess, injury bowel, scar, incisional hernia, pt understood, she agrees with the surgery, I answered all questions, pt refused to test COVID-19, this is emergent surgery pt needed. 12/02/2019 9:02AM F/U S/P laparoscopic appendectomy, POD 1 doing fine, possible discharge home today or tomorrow, the post-op care instruction was given, F/U 2 weeks, 12/02/2019 3:45PM. base on CXR I recommend to do COVID-19 test, but pt still refuses to do it. D/W benefits, risks and alternatives of the Test, pt agrees with stay hospital now, increase percocet 7.5/325 stop dilaudid morphine 2 mg IV Q6H prn for pain, repeat labs in am, will F/U I recommend to transfer pt to air pressure negative room, for percautions. Admission and Anticipated Discharge Date Admission Date: December 01, 2019 Review of Systems Constitutional: as per Subjective / HPI Eyes: as per Subjective / HPI Ear, Nose, Mouth, Throat: as per Subjective / HPI Respiratory: as per Subjective / HPI smoking Marijuana Cardiovascular: as per Subjective / HPI Additional Comments: chest pain Gastrointestinal: as per Subjective / HPI Genitourinary: as per Subjective / HPI Musculoskeletal: as per Subjective / HPI Integumentary: as per Subjective / HPI Neurologic: as per Subjective / HPI headach Psychiatric: as per Subjective / HPI Endocrine: as per Subjective / HPI hyperthyroidism, Graves Physical Exam Constitutional: WD/WN, vitals as above well developed and well nourished ENMT: external ear and nose normal, oropharynx normal Respiratory: Auscultation: + crackles (bilateral, left >right) Cardiovascular: RRR, no murmur, no edema Rate/Rhythm: regular rate and regular rhythm Heart Sounds: normal S1 and normal S2 Gastrointestinal (Abdomen): soft, some incision tenderness, no redness, Musculoskeletal: no cyanosis or clubbing, extremities motor strength 5/5 Skin: no rashes, warm and dry Neurologic: patellar DTR's 2+ bilat, sensation intact Psychiatric: Orientation: alert and oriented x 3 Results & Data ([facility]) Vital Signs (Past 12 Hours) Vital Signs Temp Pulse Pulse Resp BP Pulse Ox 12/02/19 13:14 102 H 91 12/02/19 11:40 37.4 C 103 H 24 135/86 95 12/02/19 10:19 110 H 95 12/02/19 09:45 115 H 97 12/02/19 07:51 89 99 12/02/19 07:37 101 H 22 99 12/02/19 07:28 37 C 96 H 28 H 120/64 100 Laboratory Results Abnormal lab results 12/02/19 12/02/19 Range/Units 08:31 08:31 WBC 16.37 H (4.8-10.8) K/uL Hgb 10.8 L (12.0-16.0) g/dL Hct 32.3 L (37-47) % MCV 69.5 L (80-100) fL MCH 23.2 L (25-34) pg RDW Coeff of Haseeb 14.7 H (11.5-14.5) % Neut # (Auto) 12.38 H (1.4-6.5) K/uL [place] # (Auto) 1.11 H (0.11-0.59) K/uL Immature Gran # (Auto) 0.04 H (0.00-0.02) K/uL Chloride 110 H (98-107) mmol/L Anion Gap 2.0 L (3-11) Creatinine 0.53 L (0.6-1.2) mg/dl Glucose 106 H (70-99) mg/dl Total Protein 6.1 L (6.4-8.2) gm/dl Albumin 2.7 L (3.4-5.0) gm/dl Albumin/Globulin Ratio 0.8 L (0.9-2) Diagnostic Findings XR chest 1V portable CLINICAL HISTORY: follow lung infiltrates. hypoxia COMPARISON STUDY: 12/01/2019 FINDINGS: There is marked progression in extensive bilateral pulmonary airspace opacities left more severe than right. There are no significant pleural effusions. There is no pneumothorax. Diagnostic considerations include pulmonary edema, a bilateral pneumonia, or pulmonary hemorrhage.[ IMPRESSION: 1. Marked progression in the extensive bilateral pulmonary airspace opacities.
[2019-12-02] MEDS: MoRPHine SULFATE 2 MG/ML CARP IV PRN (15:47)
[2019-12-02] MEDS ORDERED: PIPERACILL/TAZOBAC CONSULT ACTIVE PRN (16:26)
[2019-12-02] MEDS ORDERED: FUROSEMIDE 40 MG in SYRINGE 0 ML IV ONE (16:45)
[2019-12-02] MEDS ORDERED: PIPERACILLIN/TAZOBACTAM 3.375 GM in DEXTROSE 5% 100 ML IV ONE (16:45)
[2019-12-02] MEDS: OXYCODONE/APAP 7.5/325MG TAB PO PRN (21:30)
[2019-12-02] MEDS: PIPERACILLIN/TAZOBACTAM 3.375 GM in DEXTROSE 5% 100 ML IV SCH (21:30)
[2019-12-02] MEDS: MONTELUKAST SODIUM 10 MG TABLET PO SCH (21:30)
[2019-12-03] MEDS: MoRPHine SULFATE 2 MG/ML CARP IV PRN (01:40)
[2019-12-03] MEDS: PIPERACILLIN/TAZOBACTAM 3.375 GM in DEXTROSE 5% 100 ML IV SCH ×3 (05:45→23:02)
[2019-12-03 07:09] LABS: Albumin Level 2.9 gm/dl (3.4-5.0); Calcium 8.6 mg/dl (8.5-10.1); Est GFR (African American) 149.5; Potassium 3.6 mmol/L (3.5-5.1)
[2019-12-03 07:15] LABS: Albumin Globulin Ratio 0.8 (0.9-2); Bilirubin,Total 1.2 mg/dl (0.2-1); Globulin 3.8 gm/dl (2.5-4.0); Total Protein 6.7 gm/dl (6.4-8.2)
--- NOTE | 2019-12-03 07:49 | XRay Report ---
XR chest 1V portable HISTORY: 24 years-old Female follow up lung infiltrates follow up study in a patient with bilateral pulmonary opacities COMPARISON: Chest radiograph 12/02/2019 TECHNIQUE: Portable AP view of the chest FINDINGS: Cardiac silhouette is normal in size. Extensive left greater than right bilateral airspace opacities are redemonstrated which have mildly improved in the interval. No pneumothorax or large pleural effus ion. Bones appear normal. IMPRESSION: Mild improvement of the extensive left greater than right bilateral alveolar opacities. ACT 112: Negative or not required by law. The above report was generated using voice recognition software. It may contain grammatical, syntax o r spelling errors. Electronically signed by: Angel Quintana M.D. 12/03/2019 7:48 AM
[2019-12-03] MEDS: PROPRANOLOL HCL LA 80 MG CAPCR PO SCH (08:14)
[2019-12-03] MEDS: OXYCODONE/APAP 7.5/325MG TAB PO PRN ×2 (08:14→21:07)
[2019-12-03] MEDS ORDERED: FUROSEMIDE 40 MG in SYRINGE 0 ML IV ONE (08:30)
[2019-12-03 09:24] LABS: Basophils # (auto) 0.01 K/uL (0-0.2); Basophils % (auto) 0.1 %; Eosinophils # (auto) 0.09 K/uL (0-0.5); Eosinophils % (auto) 0.7 %; Hematocrit (blood only) 32.6 % (37-47); Hemoglobin 11.1 g/dL (12.0-16.0); Immature Granulocytes # (auto) 0.04 K/uL (0.00-0.02); Immature Granulocytes % (auto) 0.3 %; Lymphocytes # (auto) 2.49 K/uL (1.2-3.4); Lymphocytes % (auto) 18.4 %; Mean Corpuscular Hemoglobin 23.6 pg (25-34); Mean Corpuscular Volume 69.4 fL (80-100); Mean Platelet Volume 10.6 fL (7.4-10.4); Monocytes # (auto) 1.35 K/uL (0.11-0.59); Neutrophils # (auto) 9.54 K/uL (1.4-6.5); Neutrophils % (auto) 70.5 %; Platelet Count 239 K/uL (130-400); RDW Coefficient of Variation 14.5 % (11.5-14.5); White Blood Count 13.52 K/uL (4.8-10.8)
[2019-12-03 09:52] LABS: Microcytosis Present
--- NOTE | 2019-12-03 11:34 | Surgery Progress Note ---
Date of Service pt feels better, no abdominal pain, no nausea, no vomiting, T 38 December 03, 2019 Assessment & Plan (1) Acute abdominal pain in right lower quadrant: (2) Acute appendicitis: pt is a 24 year-old female who presents to ER with one day history RLQ pain, IMP: acute abdominal pain, appendicitis, Plan, I recommend to do laparoscopic appendectomy possible open , D/W benefits, risks and alternatives of the surgery, the risks - infection, bleeding, abscess, injury bowel, scar, incisional hernia, pt understood, she agrees with the surgery, I answered all questions, pt refused to test COVID-19, this is emergent surgery pt needed. 12/02/2019 9:02AM F/U S/P laparoscopic appendectomy, POD 1 doing fine, possible discharge home today or tomorrow, the post-op care instruction was given, F/U 2 weeks, 12/02/2019 3:45PM. base on CXR I recommend to do COVID-19 test, but pt still refuses to do it. D/W benefits, risks and alternatives of the Test, pt agrees with stay hospital now, increase percocet 7.5/325 stop dilaudid morphine 2 mg IV Q6H prn for pain, repeat labs in am, will F/U I recommend to transfer pt to air pressure negative room, for percautions. 12/03/2019 11:33AM. continue treatment, regular diet, personal financial planner surgeon will cover the weekend, Admission and Anticipated Discharge Date Admission Date: December 01, 2019 Review of Systems Constitutional: as per Subjective / HPI Eyes: as per Subjective / HPI Ear, Nose, Mouth, Throat: as per Subjective / HPI Respiratory: as per Subjective / HPI smoking Marijuana Cardiovascular: as per Subjective / HPI Additional Comments: chest pain Gastrointestinal: as per Subjective / HPI Genitourinary: as per Subjective / HPI Musculoskeletal: as per Subjective / HPI Integumentary: as per Subjective / HPI Neurologic: as per Subjective / HPI headach Psychiatric: as per Subjective / HPI Endocrine: as per Subjective / HPI hyperthyroidism, Graves Physical Exam Constitutional: WD/WN, vitals as above well developed and well nourished ENMT: external ear and nose normal, oropharynx normal Respiratory: normal respiratory effort, lungs clear to auscultation Cardiovascular: RRR, no murmur, no edema Rate/Rhythm: regular rate and regular rhythm Heart Sounds: normal S1 and normal S2 Gastrointestinal (Abdomen): normal bowel sounds, soft, nontender, no hepatosplenomegaly all incisions intact, no redness, Soft, NT, ND, BS + Musculoskeletal: no cyanosis or clubbing, extremities motor strength 5/5 Skin: no rashes, warm and dry Neurologic: patellar DTR's 2+ bilat, sensation intact Psychiatric: Orientation: alert and oriented x 3 Results & Data ([facility]) Vital Signs (Past 12 Hours) Vital Signs Temp Pulse Resp BP Pulse Ox 12/03/19 07:59 38.0 C H 98 H 18 135/53 L 97 12/02/19 23:44 37 C 89 20 116/64 97 Laboratory Results Abnormal lab results 12/03/19 12/03/19 Range/Units 06:14 06:18 WBC 13.52 H (4.8-10.8) K/uL Hgb 11.1 L (12.0-16.0) g/dL Hct 32.6 L (37-47) % MCV 69.4 L (80-100) fL MCH 23.6 L (25-34) pg MPV 10.6 H (7.4-10.4) fL Neut # (Auto) 9.54 H (1.4-6.5) K/uL [place] # (Auto) 1.35 H (0.11-0.59) K/uL Immature Gran # (Auto) 0.04 H (0.00-0.02) K/uL Creatinine 0.58 L (0.6-1.2) mg/dl Total Bilirubin 1.2 H D (0.2-1) mg/dl Albumin 2.9 L (3.4-5.0) gm/dl Albumin/Globulin Ratio 0.8 L (0.9-2) Diagnostic Findings XR chest 1V portable HISTORY: 24 years-old Female follow up lung infiltrates follow up study in a patient with bilateral pulmonary opacities COMPARISON: Chest radiograph 12/02/2019 TECHNIQUE: Portable AP view of the chest FINDINGS: Cardiac silhouette is normal in size. Extensive left greater than right bilateral airspace opacities are redemonstrated which have mildly improved in the interval. No pneumothorax or large pleural effusion. Bones appear normal. IMPRESSION: Mild improvement of the extensive left greater than right bilateral alveolar opacities.
--- NOTE | 2019-12-03 13:29 | Hospitalist Progress Note ---
Date of Service December 03, 2019 Assessment & Plan (1) Acute appendicitis: (2) S/P appendectomy: Acute Respiratory Failure with Hypoxia possibly from aspiration Pneumonia intraoperatively vs Acute Pulmonary Edema -This is a patient who on 12/01/19 had Laparoscopic Appendectomy for acute appendicitis with postoperative complication of of hypoxia from pneumonia versus pulmonary edema -12/01/2019 Chest X ray: Bilateral perihilar hazy airspace opacities, left greater than right. The heart is top normal in size. No pleural effusions. No pneumothorax. The trachea is midline and patent. -subsequent 12/02/2019 Chest X ray: Marked progression in the extensive bilateral pulmonary airspace opacities. -she was started empirically on Zosyn and Lasix 40 mg IV daily on 12/03/2019 and after much reluctance by the patient to be screened for ruling out COVID-19 with empiric airborne/contact isolation, patient agreed to COVID-19 PCR testing by nasal swab on 12/03/2019 which proved to be negative for COVID-19 (also there are pending results for COVID-19 antibodies drawn on 12/02/2019 in case of exposure in the distant past). COVID-19 isolation precautions can be removed -A review of 12/03/2019 AM Chest X ray with Mild improvement of the extensive left greater than right bilateral alveolar opacities. While the procalcitonin is negative and BNP is normal, the strategy to give broad spectrum IV antibiotics and IV Lasix with incentive spirometer is a reasonable treatment plan to help with the lung infiltrates -follow the blood cultures that patient permitted to be drawn on 12/03/2019, prn acetaminophen for fevers, WBC 13,000 by 12/03/2019 but patient still with low grade fevers -start patient on Breo inhaler, she reports that she was on this medication in the past but it was not covered as outpatient by her insurance -nebulizers prn -wean down supplementary oxygen based on oxygen saturation -because of post-operative complications, patient will be upgraded from observation to admission and can be managed by hospitalist medicine service. will appreciate general surgery service to follow and assist if any localized problems with the bowels after the appendectomy -patient reports she has made bowel movement post-operatively -all plans discussed with patient and she agrees to the treatment plans at this time. Graves' disease - on propranolol DVT ppx: SCDs Admission and Anticipated Discharge Date Admission Date: December 01, 2019 Subjective -she was started empirically on Zosyn and Lasix 40 mg IV daily on 12/03/2019 and after much reluctance by the patient to be screened for ruling out COVID-19 with empiric airborne/contact isolation, patient agreed to COVID-19 PCR testing by nasal swab on 12/03/2019 which proved to be negative for COVID-19 (also there are pending results for COVID-19 antibodies drawn on 12/02/2019 in case of exposure in the distant past). COVID-19 isolation precautions can be removed -A review of 12/03/2019 AM Chest X ray with Mild improvement of the extensive left greater than right bilateral alveolar opacities. While the procalcitonin is negative and BNP is normal, the strategy to give broad spectrum IV antibiotics and IV Lasix with incentive spirometer is a reasonable treatment plan to help with the lung infiltrates -follow the blood cultures that patient permitted to be drawn on 12/03/2019, prn acetaminophen for fevers, WBC 13,000 by 12/03/2019 but patient still with low grade fevers -start patient on Breo inhaler, she reports that she was on this medication in the past but it was not covered as outpatient by her insurance -nebulizers prn -wean down supplementary oxygen based on oxygen saturation -because of post-operative complications, patient will be upgraded from observation to admission and can be managed by hospitalist medicine service. will appreciate general surgery service to follow and assist if any localized problems with the bowels after the appendectomy -patient reports she has made bowel movement post-operatively -all plans discussed with patient and she agrees to the treatment plans at this time. patient denies acute pain. she feels breathing subjectively better compared to yesterday. she denies other symptoms Review of Systems Review of Systems: All systems reviewed & are unremarkable except as noted in Subjective Physical Exam Constitutional: cooperative Eyes: PERRL, conjunctivae normal, anicteric sclerae EOM intact bilaterally ENMT: external ear and nose normal, oropharynx normal Neck: normal visual inspection Respiratory: normal respiratory effort Auscultation: + crackles Cardiovascular: Rate/Rhythm: regular rate and regular rhythm Gastrointestinal (Abdomen): Percussion/Palpation: abdomen soft (abdomen with dressing) Musculoskeletal: Head/Neck/Chest: normocephalic and head atraumatic Neurologic: PERRL, EOMI, accommodation nl, no face palsy, no dysarthria CN's II-XI intact bilaterally Psychiatric: A+Ox3, euthymic affect Results & Data Results & Data ([facility]) Vital Signs (Past 12 Hours) Vital Signs Temp Pulse Resp BP Pulse Ox 12/03/19 12:49 120/63 12/03/19 12:00 36.7 C 87 18 95 12/03/19 07:59 38.0 C H 98 H 18 135/53 L 97
[2019-12-03] MEDS: FLUTICASONE/VILANTEROL 100/25MCG 14 PUFFS/INHALER INH SCH (15:54)
[2019-12-03 17:00] LABS: Adenovirus PCR Not Detected (NotDetected); Bordetella parapertussis PCR Not Detected (NotDetected); Bordetella pertussis PCR Not Detected (NotDetected); Chlamydia pneumoniae PCR Not Detected (NotDetected); Coronavirus 229E PCR Not Detected (NotDetected); Coronavirus CoV-2 (COVID19)PCR Not Detected (NotDetected); Coronavirus HKU1 PCR Not Detected (NotDetected); Coronavirus NL63 PCR Not Detected (NotDetected); Coronavirus OC43PCR Not Detected (NotDetected); Human Metapneumovirus PCR Not Detected (NotDetected); Influenza A PCR Not Detected (NotDetected); Influenza B PCR Not Detected (NotDetected); Mycoplasma pneumoniae PCR Not Detected (NotDetected); Parainfluenza Virus 1 PCR Not Detected (NotDetected); Parainfluenza Virus 2 PCR Not Detected (NotDetected); Parainfluenza Virus 3 PCR Not Detected (NotDetected); Parainfluenza Virus 4 PCR Not Detected (NotDetected); Respiratory Syncytial VirusPCR Not Detected (NotDetected); Rhinovirus/Enterovirus PCR Not Detected (NotDetected)
--- NOTE | 2019-12-03 17:25 | Anesthesiology Progress Note ---
Date of Service December 03, 2019 Anesthesia Post Procedure Vital Signs Vital Signs: Temp Pulse Resp BP Pulse Ox Pulse Ox 12/03/19 12:49 120/63 12/03/19 12:00 36.7 C 87 18 95 12/03/19 07:59 38.0 C H 98 H 18 135/53 L 97 12/02/19 23:44 37 C 89 20 116/64 97 12/02/19 19:47 95 12/02/19 18:50 37.3 C Pain Intensity Abdomen: Pain Intensity: 3 Transfer of Care Handoff Completed per policy Notes Mental Status: alert / awake / arousable Patient Amnestic to Procedure: Yes Nausea / Vomiting: adequately controlled Pain: adequately controlled Airway Patency, RR, SpO2: see Notes below BP & HR: stable & adequate Hydration State: stable & adequate Anesthetic Complications: no major complications apparent and Pt Satisfied with anesthetic care Notes: The patient underwent a laparoscopic appendectomy on the evening of 12/01/19. She was easily intubated and the case was uneventful. Upon extubation the UTILITY LOCATE TECHNICIAN suctioned out a large amount of mucous, but was not noted to aspirate. The patient was taken to PACU and treated for pain. Her SpO2 was noted to drop into the 80s so she was given a Duoneb. The patient's SpO2 improved to the 90s on nasal cannula. Medicine was notified and the patient went to the floor. On the floor, her SpO2 dropped into the 80s when she went to sleep. She was transferred to an ICU room for closer monitoring. CXR showed bilateral opacities in the lungs although they appear to be improving. The patient initially refused Covid testing but was finally tested today and found to be negative for Covid 19. Other serology is pending. She does does have a low grade fever. On exam the patient was resting comfortably in bed. She was on room air and her SpO2 was in the 90s. Her lungs had mild crackles in the bases on auscultation but were otherwise clear. The medicine team continues to manage the patient.
[2019-12-03] MEDS: MONTELUKAST SODIUM 10 MG TABLET PO SCH (21:07)
[2019-12-04] MEDS: MoRPHine SULFATE 2 MG/ML CARP IV PRN (02:52)
[2019-12-04] MEDS: PIPERACILLIN/TAZOBACTAM 3.375 GM in DEXTROSE 5% 100 ML IV SCH ×2 (06:00→14:12)
[2019-12-04] MEDS: FLUTICASONE/VILANTEROL 100/25MCG 14 PUFFS/INHALER INH SCH (08:05)
[2019-12-04] MEDS: PROPRANOLOL HCL LA 80 MG CAPCR PO SCH (08:05)
--- NOTE | 2019-12-04 08:44 | Surgery Progress Note ---
Date of Service December 04, 2019 Assessment & Plan (1) S/P appendectomy: From our standpoint she is doing very well. Would be okay with us that she be discharged today if okay with medicine. Instructions given. Follow-up with Dr. Bosch in 1 week Admission and Anticipated Discharge Date Admission Date: December 03, 2019 Subjective feeling much better today. Pain is controlled and she is tolerating regular diet with no nausea. Her breathing is also much improved and she is off of oxygen. Physical Exam Physical Exam: Alert. No acute distress No labored breathing Abdomen is soft. Expected incisional tenderness. The incisions are all clean dry intact with no sign of infection Results & Data ([facility]) Vital Signs (Past 12 Hours) Vital Signs Temp Pulse Pulse Pulse Resp BP Pulse Ox 12/04/19 07:55 36.7 C 83 18 131/65 99 12/04/19 03:30 36.8 C 70 18 118/64 97 12/03/19 23:38 36.9 C 72 18 123/58 L 96 12/03/19 23:00 73 12/03/19 20:46 37.2 C 69 18 118/71 98 PG Care Time/CCT Total # of Minutes Spent Total Time Spent with Patient: Total time spent is greater than 50% in coordination of care (as documented) at patient's floor/unit and/or counseling patient: Coding Level of Care Code None Diagnoses S/P appendectomy Z90.49
[2019-12-04 08:55] LABS: CoV2 Total Antibody Negative (Negative)
[2019-12-04] MEDS: OXYCODONE/APAP 7.5/325MG TAB PO PRN (10:00)
[2019-12-04 10:39] LABS: Basophils # (auto) 0.01 K/uL (0-0.2); Basophils % (auto) 0.1 %; Eosinophils # (auto) 0.23 K/uL (0-0.5); Eosinophils % (auto) 2.2 %; Hematocrit (blood only) 34.5 % (37-47); Hemoglobin 11.8 g/dL (12.0-16.0); Immature Granulocytes # (auto) 0.02 K/uL (0.00-0.02); Immature Granulocytes % (auto) 0.2 %; Lymphocytes # (auto) 3.28 K/uL (1.2-3.4); Lymphocytes % (auto) 30.7 %; Mean Corpuscular Hemoglobin 23.7 pg (25-34); Mean Corpuscular Hgb Conc 34.2 g/dL (32-36); Mean Corpuscular Volume 69.4 fL (80-100); Mean Platelet Volume 10.5 fL (7.4-10.4); Monocytes # (auto) 1.18 K/uL (0.11-0.59); Neutrophils # (auto) 5.96 K/uL (1.4-6.5); Neutrophils % (auto) 55.8 %; Platelet Count 265 K/uL (130-400); RDW Coefficient of Variation 14.3 % (11.5-14.5); Red Blood Count 4.97 M/uL (4.2-5.4); White Blood Count 10.68 K/uL (4.8-10.8)
[2019-12-04 10:43] LABS: Base Excess VBG 3.6 mEq/L; Oxygen Saturation VBG 70.8 %; pH VBG 7.43 (7.36-7.41)
[2019-12-04 11:04] LABS: BUN Creatinine Ratio 14.8 (10-20); Calcium 9.4 mg/dl (8.5-10.1); Creatinine Clr Calc Pharmacy 137.7 ml/min; Est GFR (African American) 148.7; Est GFR (Non-African American) 128.3; Potassium 3.6 mmol/L (3.5-5.1)
[2019-12-04 11:07] LABS: Albumin Globulin Ratio 0.6 (0.9-2); Bilirubin,Total 0.8 mg/dl (0.2-1); Globulin 4.7 gm/dl (2.5-4.0); Total Protein 7.7 gm/dl (6.4-8.2)
[2019-12-04 11:58] LABS: Hypochromasia Present; Microcytosis Present; Target Cells 1+
--- NOTE | 2019-12-04 11:58 | Hospitalist Progress Note ---
Date of Service December 04, 2019 Assessment & Plan (1) Acute appendicitis: (2) S/P appendectomy: Acute Respiratory Failure with Hypoxia possibly from aspiration Pneumonia intraoperatively vs Acute Pulmonary Edema -This is a patient who on 12/01/19 had Laparoscopic Appendectomy for acute appendicitis with postoperative complication of of hypoxia from pneumonia versus pulmonary edema -12/01/2019 Chest X ray: Bilateral perihilar hazy airspace opacities, left greater than right. The heart is top normal in size. No pleural effusions. No pneumothorax. The trachea is midline and patent. -subsequent 12/02/2019 Chest X ray: Marked progression in the extensive bilateral pulmonary airspace opacities. -she was started empirically on Zosyn and Lasix 40 mg IV daily on 12/03/2019 and after much reluctance by the patient to be screened for ruling out COVID-19 with empiric airborne/contact isolation, patient agreed to COVID-19 PCR testing by nasal swab on 12/03/2019 which proved to be negative for COVID-19 with the Cepiad test and negative viral infections by [employer]. also patient's 12/02/2019 antibodies have retuned as negative for COVID-19 antibodies. COVID-19 isolation precautions removed. -during this hospital course in regards to lung infiltrates and hypoxia and leukocytosis, patient was upgraded from Cefoxitin to Zosyn started on 12/02/2019 and patient also given Lasix 40 mg x1 on 12/02/2019 and 12/03/2019. Patient encouraged to use the incentive spirometer -despite the negative procalcitonin and relatively normal BNP on this admission, this strategy appears to be correlated with respiratory improvements -the CXR on 12/03/2019 with Mild improvement of the extensive left greater than right bilateral alveolar opacities. But she still had low grade fever with WBC of 13,000 on 12/03/2019. She was also started on Breo inhaler -White blood cell counts have been trending down to around 10,000 by 12/04/2019 patient weaned off oxygen to room air on 12/04/2019 when at rest. on lung exam on 12/04/2019 crackles are no audible. patient ambulated with nurse in the [address] way on room air- as per nurse "she started out at 95% and then during ambulation dropped to 87-89%, but recovered immediately when stopping, she did report she felt mildly SOB." -The current plan is to continue IV Zosyn for now, and await for the return of the 12/03/2019 blood cultures. hospitalist also called her preferred pharmacy and they indicate that her insurance covers generic Advair (Fluticasone/salmeterol). The Advair to be started in the hospital on 12/04/2019. Patient is in agreement to this plan. -because of post-operative complications, patient had been upgraded from observation to admission starting on and currently being managed by hospitalist medicine service. General surgery has written the patient's post- hospital follow up instructions when patient is ready to be discharged from this hospital stay Graves' disease - on propranolol DVT ppx: SCDs, encourage ambulation Admission and Anticipated Discharge Date Admission Date: December 03, 2019 Subjective -White blood cell counts have been trending down to around 10,000 by 12/04/2019 patient weaned off oxygen to room air on 12/04/2019 when at rest. on lung exam on 12/04/2019 crackles are no audible. patient ambulated with nurse in the [address] way on room air- as per nurse "she started out at 95% and then during ambulation dropped to 87-89%, but recovered immediately when stopping, she did report she felt mildly SOB." -The current plan is to continue IV Zosyn for now, and await for the return of the 12/03/2019 blood cultures. hospitalist also called her preferred pharmacy and they indicate that her insurance covers generic Advair (Fluticasone/salmeterol). The Advair to be started in the hospital on 12/04/2019. Patient is in agreement to this plan. patient does not have any acute pain at this time. she did have some low grade fever on 12/03/2019 but no fever on 12/04/2019 as of this time Review of Systems Review of Systems: All systems reviewed & are unremarkable except as noted in Subjective Physical Exam Constitutional: WD/WN, vitals as above cooperative Eyes: PERRL, conjunctivae normal, anicteric sclerae EOM intact bilaterally ENMT: external ear and nose normal, oropharynx normal Neck: trachea midline, no thyromegaly normal visual inspection Respiratory: normal respiratory effort Cardiovascular: Rate/Rhythm: regular rate and regular rhythm Gastrointestinal (Abdomen): Percussion/Palpation: abdomen soft (abdomen with dressing) Musculoskeletal: Head/Neck/Chest: normocephalic and head atraumatic Neurologic: PERRL, EOMI, accommodation nl, no face palsy, no dysarthria CN's II-XI intact bilaterally Psychiatric: A+Ox3, euthymic affect Orientation: alert and oriented x 3 Results & Data Results & Data ([facility]) Vital Signs (Past 12 Hours) Vital Signs Temp Pulse Pulse Pulse Resp BP Pulse Ox 12/04/19 08:00 71 12/04/19 07:55 36.7 C 83 18 131/65 99 12/04/19 03:30 36.8 C 70 18 118/64 97
--- NOTE | 2019-12-04 15:20 | Discharge Summary ---
Date of Service December 04, 2019 Admission HPI Per Admitting Provider December 01, 2019 CHIEF COMPLAINT: Right lower quadrant abdominal pain HPI: Patient is a 24-year-old female who was seen and evaluated by Robyn Hahn at [facility] and was referred in for further evaluation. Patient notes that she has been having right lower quadrant pain since about 9:00 yesterday. He was associate with vomiting last night but that has now abated. Pain was initially diffuse throughout the belly but now focal in the right lower quadrant. She notes movement bumps and laying back to make it worse. Denies any dysuria urgency or frequency. Last menstrual period finished 2 days ago. Patient denies any upper respiratory symptoms or any other complaints at this time. Principal Diagnosis Acute appendicitis: S/P laparoscopic appendectomy with postoperative complication of: Acute Respiratory Failure with Hypoxia possibly from aspiration Pneumonia intraoperatively vs Acute Pulmonary Edema Discharge Exam Constitutional WD/WN, vitals as above cooperative Eyes PERRL, conjunctivae normal, anicteric sclerae EOM intact bilaterally ENMT external ear and nose normal, oropharynx normal Neck trachea midline, no thyromegaly normal visual inspection Respiratory normal respiratory effort Cardiovascular Rate/Rhythm: regular rate and regular rhythm Gastrointestinal (Abdomen) Percussion/Palpation: abdomen soft (abdomen with dressing) Musculoskeletal Head/Neck/Chest: normocephalic and head atraumatic Neurologic PERRL, EOMI, accommodation nl, no face palsy, no dysarthria CN's II-XI intact bilaterally Psychiatric A+Ox3, euthymic affect Orientation: alert and oriented x 3 Discharge Data Allergies Allergy/AdvReac Type Severity Reaction Status Date / Time No Known Allergies Allergy Unverified 12/01/19 14:36 Consultations 12/01/19 15:32 ED Decision to Admit Stat 12/01/19 20:15 Consult Hospitalist Routine Procedures Performed Operation Date: 12/01/19 11:15 Actual Procedures p Laparoscopic Appendectomy - Arturo Bosch MD Ordered Studies 12/01/19 12:40 CT abd pelvis oral and IV con Stat Hospital Course (1) Acute appendicitis: (2) S/P appendectomy: with postoperative complication of Acute Respiratory Failure with Hypoxia possibly from aspiration Pneumonia intraoperatively vs Acute Pulmonary Edema -This is a patient who on 12/01/19 had Laparoscopic Appendectomy for acute appendicitis with postoperative complication of of hypoxia from pneumonia versus pulmonary edema -12/01/2019 Chest X ray: Bilateral perihilar hazy airspace opacities, left greater than right. The heart is top normal in size. No pleural effusions. No pneumothorax. The trachea is midline and patent. -subsequent 12/02/2019 Chest X ray: Marked progression in the extensive bilateral pulmonary airspace opacities. -she was started empirically on Zosyn and Lasix 40 mg IV daily on 12/03/2019 and after much reluctance by the patient to be screened for ruling out COVID-19 with empiric airborne/contact isolation, patient agreed to COVID-19 PCR testing by nasal swab on 12/03/2019 which proved to be negative for COVID-19 with the Cepiad test and negative viral infections by BIOFIRE. also patient's 12/02/2019 antibodies have retuned as negative for COVID-19 antibodies. COVID-19 isolation precautions removed. -during this hospital course in regards to lung infiltrates and hypoxia and leukocytosis, patient was upgraded from Cefoxitin to Zosyn started on 12/02/2019 and patient also given Lasix 40 mg x1 on 12/02/2019 and 12/03/2019. Patient encouraged to use the incentive spirometer -despite the negative procalcitonin and relatively normal BNP on this admission, this strategy appears to be correlated with respiratory improvements -the CXR on 12/03/2019 with Mild improvement of the extensive left greater than right bilateral alveolar opacities. But she still had low grade fever with WBC of 13,000 on 12/03/2019. She was also started on Breo inhaler -White blood cell counts have been trending down to around 10,000 by 12/04/2019 patient weaned off oxygen to room air on 12/04/2019 when at rest. on lung exam on 12/04/2019 crackles are no audible. patient ambulated with nurse in the pope way on room air- as per nurse "she started out at 95% and then during ambulation dropped to 87-89%, but recovered immediately when stopping, she did report she felt mildly SOB." -because of post-operative complications, patient had been upgraded from observation to admission starting on and has been managed by hospitalist medicine service. General surgery has written the patient's post- hospital follow up instructions when patient is ready to be discharged from this hospital stay -originally on 12/04/2019 , the plan was to continue IV Zosyn for now, and await for the return of the 12/03/2019 blood cultures. However, another incident occur between the hospital staff and patient, because as per nurse and patient that the patient was still erroneously on the hospital's list of being person under investigation for COVID and the hospital front desk auxiliary turned away patient's visitor. Although this situation was addressed by the nurse for correction, the relationship between the patient and her opinion of the medical institution has become irreparable and patient did not wish to stay in this [facility] any further. Hospitalist listened to all of patient's concerns attempted to provide appropriate discharge instructions and recommendations both verbally and via the written discharge instructions final 12/03/2019 blood cultures results are pending (so far no growth to date in 24 hours) patient can be called [phone] for any unusual results Patient should follow general surgery discharge instructions and make appointment with general surgery clinic Patient has a previously scheduled clinic appointment with primary care doctor in December but is advised to make a an earlier appointment (1 week after discharge) for following up of lung infiltrates with Chest X ray 12/27/2019 2:40 PM Provider Leoncio Savage DO Department [facility] all medications sent electronically to [facility] [address] [place] [phone] including 7 more days of respiratory antibiotics of Augmentin (Amoxicillin Clavulanate) twice a day and azithromycin daily fluticasone propionate and salmeterol oral inhaler acetaminophen 325 every 6 hours as needed for fever or pain ibuprofen 500 mg every 6 hours as needed for moderate pain. should be taken with food Percocet 1 tab every 6 hours as needed for severe pain (16 tablets prescribed) Graves' disease - on propranolol DVT ppx: SCDs, encourage ambulation Total Time Total Time Spent Total Time Spent (In Minutes): 40 minutes Total Time Includes: Examination of the Patient, Discharge Planning, Medication Reconciliation and Communication With Other Providers Discharge Plan Discharge Items Patient Disposition: Home - Self-Care Reason For Visit: RT SIDED ABD PAIN Discharge Diagnosis: Acute appendicitis: S/P laparoscopic appendectomy with postoperative complication of: Acute Respiratory Failure with Hypoxia possibly from aspiration Pneumonia intraoperatively vs Acute Pulmonary Edema Condition on Discharge: Good Activity: As commented below Lifting: No more than 25 pounds Lifting Comment: for 4 weeks Bathing: May shower/bathe in 3 days Sexual Activity: After two weeks Exercise/Sports: Rest today Driving/Machine Use: no driving while taking pain medicine Non-emergency contact: Surgeon Call non-emergency contact if: you have any medication questions, your symptoms worsen, your pain is not controlled, your pain is unusual for you, you have a fever, your temperature is above 101, your wound has increased redness, your wound has increased drainage and your wound pain has increased Follow-up/Referrals: Arturo Bosch MD [Physician] - (follow up Dr. Bosch 2 weeks, Agree-I have documented within the medical record.) Leoncio Savage DO [Primary Care Provider] - Diet: Regular Addtl Attending Provider Instructions: Post-Surgical ~Discharge Instructions Activity Recommendations: - lifting limitation: (25 pounds for 4 weeks), - exercise/sex/sports limit: (nonstrenuous for 2 weeks), - driving or machine use limit: (none for 1 week or until no longer taking narcotic pain medication), - Shower/bathe limit: (may shower beginning Friday) Diet: - Resume previous diet SPECIAL CARE INSTRUCTIONS: - May shower Friday, sponge bath and wash hair in meantime. On Friday, remove outer dressings and let water run over area and pat dry. - Leave steri strips on for one week and then remove - Call the surgeon's office with any questions or concerns - - (ex. temperature higher than 101 degrees F, excessive bleeding or pain). MEDICATIONS: - Resume previous medications unless instructed otherwise by your surgeon. - Ibuprofen 600 mg every 6 hours with food - Percocet 1 every 6 hours, as needed for pain FOLLOW UP VISIT: - If not already scheduled, please call the office to schedule a two week follow-up appointment. 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 MODERATE TO SEVERE ACUTE APPENDICITIS IS SEEN. 2. NO TUMOR SEEN. Patient should follow general surgery discharge instructions and make appointment with general surgery clinic Patient has a previously scheduled clinic appointment with primary care doctor in December but is advised to make a an earlier appointment (1 week after discharge) for following up of lung infiltrates with Chest X ray 12/27/2019 2:40 PM Provider DO Bharath [facility] all medications sent electronically to [facility] [address] [place] [address], [place] [id number] including 7 more days of respiratory antibiotics of Augmentin (Amoxicillin Clavulanate) twice a day and azithromycin daily fluticasone propionate and salmeterol oral inhaler acetaminophen 325 every 6 hours as needed for fever or pain ibuprofen 500 mg every 6 hours as needed for moderate pain. should be taken with food Percocet 1 tab every 6 hours as needed for severe pain (16 tablets prescribed) Pending Studies at Discharge: Yes Studies:: final 12/03/2019 blood cultures results are pending (so far no growth to date in 24 hours) patient can be called [phone] for any unusual results Stand-Alone Forms: My [facility] [employer], Smoking Cessation Medications and DC Order Prescriptions: New acetaminophen 325 mg tablet 325 mg PO Q6H PRN (Reason: fever or pain) 5 Days Qty: 20 RF: 0 ibuprofen 600 mg tablet 600 mg PO Q6H PRN (Reason: moderate pain) 5 Days Qty: 20 RF: 0 oxycodone-acetaminophen [Percocet] 5-325 mg tablet 1 tab PO Q6H PRN (Reason: severe pain) 4 Days Qty: 16 RF: 0 fluticasone propion-salmeterol 100-50 mcg/dose blister with device 1 inh inhalation BID 30 Days Qty: 60 RF: 0 Continued propranolol 80 mg Capsule,Extended Release 24 Hr 80 mg PO QAM RF: 0 montelukast 10 mg tablet 10 mg PO QAM RF: 0 albuterol sulfate [Ventolin HFA] 90 mcg/actuation HFA aerosol inhaler 2 puff INHALATION Q4H PRN (Reason: Shortness Of Breath Or Wheezing) RF: 0 Discharge Orders: Discharge Order (Routine); Ordered 12/04/19 Ordered By: Jamarcus Yap Admission Data Admit Date/Time: 12/03/19 13:23 Attending Provider: Jamarcus Yap Admit Provider: Arturo Bosch Primary Care Provider: Leoncio Savage Other Providers: Arturo Bosch ; Wil South ; Aldo Ortega ; Renee Gottlieb ; Darcie Jensen ; Rachel Cole ; Esther Gonzalez ; Mary Lazar ; Kee Mahmood ; Ap Mensah ; Dru Rowe ; Ingrid Ramos ; Agustina Pierce ; Lea Naidu ; Alberto Steen ; Jamarcus Yap ; Vicky Clement ; Robson Amaral ; Lola Shanks ; Jamarcus Valdovinos ; Rosangela Fermin ; Rosy Camacho ; Kavita Ponce ; Kassandra Ryan I. ; Yury Stacy
[2019-12-05] MEDS ORDERED: FLUTICASONE/SALMETEROL 100/50 (ADVAIR) 14 PUFF/1 INHALER INH SCH (09:00)
== END 2019-12-04 16:18 | disposition home or self-care (01) | DRG 341 ==
LOC: ED 12:21 → OR 14:58 → 3E 16:58 → 2E 12-02 19:50 → SUATTDRO 12-03 13:23

== ENCOUNTER 2022-07-23 07:46 | Inpatient (IN) ==
[2022-07-23] MEDS ORDERED: OXYTOCIN 30 UNITS/500 ML BAG IV PRN (09:42)
[2022-07-23] MEDS ORDERED: LIDOCAINE 1% LOCAL 20 ML VIAL INFIL PRN (09:42)
[2022-07-23] MEDS ORDERED: DINOPROSTONE 10 MG INSERT PV ONE (09:43)
--- NOTE | 2022-07-23 09:55 | History & Physical Report ---
Date of Service July 23, 2022 Assessment & Plan (1) Elective induction of labor planned: Plan: 26-year-old G1, P0 at 39 weeks and 3 days of gestation who was scheduled for induction of labor at term, Vital signs stable afebrile, GBS negative, heart rate reassuring, Cervix unfavorable, Plan to admit, labs, cervical ripening with Cervidil, Patient understands inductions may take long time and understands the process of induction, All questions were answered. (2) Graves' disease: Admission and Anticipated Discharge Date Admission Date: July 23, 2022 History of Present Illness Primary Care Provider: Leoncio Savage DO Patient is a 26-year-old G1, P0 at 39 weeks and 3 days of gestation who was scheduled for elective induction of labor at term due to her partner's surgery. She has no complaints. She denies contractions, leakage of fluid, vaginal bleeding. She reports good movements. She has a history of Graves' disease, no medications, no symptoms, GBS negative. Allergies Allergy/AdvReac Type Severity Reaction Status Date / Time No Known Allergies Allergy Unverified 08/01/21 10:42 Home Medications Medication Instructions Recorded Confirmed Type albuterol sulfate 90 mcg/actuation 2 puff inhalation Q4H PRN 05/26/19 07/23/22 History aerosol inhaler (Ventolin HFA) Shortness Of Breath Or Wheezing ferrous sulfate 325 mg (65 mg 325 mg PO BID 07/23/22 07/23/22 History iron) tablet (Iron (ferrous sulfate)) Patient History Medical History (Updated 07/23/22 @ 09:57 by Susanna Dietrich MD) Anemia Graves' disease Graves' orbitopathy History of use of contraceptive intrauterine device (IUD) Hx of suicide attempt Hyperthyroidism Surgical History History of elective Family History Other Lung disease Social History Smoking Status: Never smoker Tobacco Type: Cigarettes Second Hand Exposure: No; Do You Dip or Chew Tobacco: No; Tobacco Cessation Education Requested by Patient: No Hx Alcohol Use: No Hx Substance Use: No Preferred Language: Thai Communication Ability: Effective Visual Impairment: No Limitations Ecosystem Ecology Professor Required: No Beliefs That Will Affect Care: None marital status: Single Current Living Situation: Significant Other Current Living Situation Comment: Evan MONTILLA current occupational status: employed Other Information That Helps Us Care for You: No Feels Safe at Home: Yes Safety Concerns: Feels Safe At This Time Childhood Exposure to Second-Hand Smoke: No Assistive Devices: None 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 Review of Systems as per Subjective / HPI Physical Exam Constitutional: WD/WN, vitals as above Gastrointestinal (Abdomen): normal bowel sounds, soft, nontender, no hepatosplenomegaly (gravid) Genitourinary: no vaginal lesions, no adnexal mass OB Exam Abdomen: + vertex Manual OB Exam: + cervical dilation fingertip, + cervical effacement 50% and + station high (ballotable) OB Exam Monitor Tracing: + external uterine monitor used and + category I Bed side US: vertex, EFW 3440 gr, FHR 140's, AFV normal Results & Data Vital Signs (Past 12 Hours) Vital Signs Temp Pulse Resp BP 07/23/22 08:38 36.9 C 18 07/23/22 08:49 75 128/87
[2022-07-23 10:34] LABS: Hematocrit (blood only) 35.9 % (37.0-47.0); Hemoglobin 12.5 g/dl (12.0-16.0); Mean Corpuscular Hemoglobin 27.5 pg (25.0-34.0); Mean Corpuscular Hgb Conc 34.8 g/dL (32.0-36.0); Mean Corpuscular Volume 78.9 fL (80.0-100.0); Mean Platelet Volume 11.1 fL (9.4-12.4); Platelet Count 197 K/uL (130-400); RDW Coefficient of Variation 12.6 % (11.5-14.5); Red Blood Count 4.55 M/uL (4.20-5.40); White Blood Count 9.71 K/ul (4.8-10.8)
[2022-07-23 10:57] LABS: Thyroid Stimulating Hormone 0.016 uIu/ml (0.300-4.500)
[2022-07-23 11:34] LABS: T4 Free Thyroxine 0.76 ng/dl (0.61-1.60)
[2022-07-23] MEDS ORDERED: BUTORPHANOL TARTRATE 1 MG/ML VIAL IV PRN (19:15)
[2022-07-23] MEDS: ACETAMINOPHEN 500 MG TAB PO PRN (19:33)
--- NOTE | 2022-07-23 22:45 | Obstetrical Progress Note ---
Date of Service July 23, 2022 Assessment & Plan Admission and Anticipated Discharge Date Admission Date: July 23, 2022 Subjective Patient is reevaluated. She feels contractions, but irregular. No LOF/VB +FM FHR categ I VE; ft/ 60%/ -3, posterior, Cervidil is removed, patient is uncomfortable with VE Patient desires to eat. Plan to let her eat dinner, start PO then start SL Cytotec for further cervical ripening. Results & Data Vital Signs (Past 12 Hours) Vital Signs Temp Pulse Resp BP 07/23/22 19:00 37.0 C 18 07/23/22 22:17 67 129/79 07/23/22 19:02 70 129/83 07/23/22 15:00 20 07/23/22 15:00 36.9 C 07/23/22 14:53 68 92/61 L 07/23/22 12:01 18 07/23/22 12:01 37.0 C 07/23/22 12:07 70 123/76 07/23/22 11:46 56 L 119/78 07/23/22 11:16 64 125/82 07/23/22 10:46 61 122/83
[2022-07-24] MEDS: miSOPROStoL 25 MCG TAB SL SCH ×6 (01:41→23:17)
--- NOTE | 2022-07-24 07:15 | Obstetrical Progress Note ---
Date of Service July 24, 2022 Assessment & Plan Admission and Anticipated Discharge Date Admission Date: July 23, 2022 Subjective Patient slept for most of the night. She had regular contractions after cervidil and could not Cytotec until 2:30 am Spaced out this morning and had another dose at 7 am FHR categ I Continue with cervical ripening and monitor Signed out to Dr Childs. Results & Data Vital Signs (Past 12 Hours) Vital Signs Pulse Resp BP 07/24/22 07:10 75 129/78 07/24/22 02:22 61 16 132/83 07/23/22 22:17 67 129/79
--- NOTE | 2022-07-24 08:33 | Obstetrical Progress Note ---
Date of Service July 24, 2022 Assessment & Plan (1) Elective induction of labor planned: Plan: Continue sublingual Cytotec Plan for artificial rupture of membranes on next check Epidural if patient requests Anticipate spontaneous vaginal delivery (2) Graves' disease: Admission and Anticipated Discharge Date Admission Date: July 23, 2022 Subjective Patient comfortable at this time, no complaints Just received another dose of sublingual Cytotec earlier this morning Physical Exam Constitutional: WD/WN, vitals as above Genitourinary: heart tracing: Baseline 140, moderate variability, positive accelerations, no decelerations, category 1 tracing Tocometer: Irregular contractions Cervix: 1-2/60/-3 Membranes stripped Results & Data Vital Signs (Past 12 Hours) Vital Signs Temp Pulse Resp BP 07/24/22 07:10 36.6 C 16 07/24/22 07:10 36.6 C 75 16 129/78 07/24/22 02:22 61 16 132/83 07/23/22 22:17 67 129/79
[2022-07-24] MEDS ORDERED: ALBUTEROL HFA 8 GM INHALER INH PRN (10:58)
--- NOTE | 2022-07-24 13:41 | Obstetrical Progress Note ---
Date of Service July 24, 2022 Assessment & Plan (1) Elective induction of labor planned: Plan: Patient is status post sublingual Cytotec Unable to perform AROM at this time due to patient discomfort, patient desires epidural at this time Plan for AROM after, and start oxytocin for augmentation Anticipate spontaneous vaginal delivery (2) Graves' disease: Admission and Anticipated Discharge Date Admission Date: July 23, 2022 Subjective Contractions are getting more painful, 8 out of 10, requesting medication Review of Systems Constitutional: as per Subjective / HPI Physical Exam Constitutional: WD/WN, vitals as above Genitourinary: heart tracing: Baseline 1 4145, moderate variability, positive accelerations, no decelerations, category 1 tracing Tocometer: Contractions every 2 to 3 minutes Cervix: 2-3/60/-2, AROM was attempted to be performed but patient could not tolerate exam long enough Results & Data Vital Signs (Past 12 Hours) Vital Signs Temp Pulse Resp BP 07/24/22 07:10 36.6 C 16 07/24/22 12:00 16 07/24/22 12:00 36.6 C 16 07/24/22 11:20 69 138/90 07/24/22 11:11 60 138/87 07/24/22 07:10 36.6 C 75 16 129/78 07/24/22 02:22 61 16 132/83
[2022-07-24] MEDS: LACTATED RINGER'S 1,000 ML IV PRN ×3 (13:42→22:25)
[2022-07-24] MEDS ORDERED: fentaNYL citrate PF 100 MCG/2 ML VIAL ONE ×2 (14:00→23:16)
[2022-07-24] MEDS ORDERED: SODIUM CHLORIDE 0.9% PF INJ 10 ML VIAL ONE (14:01)
[2022-07-24] MEDS ORDERED: fentaNYL 2MCG/ML ROPIVACAINE 1.25MG/ML 100 ML BAG EPI ONE (14:01)
[2022-07-24] MEDS ORDERED: BUPIVACAINE 0.25% PF 30 ML VIAL ONE (14:01)
[2022-07-24] MEDS ORDERED: LIDOCAINE 2%/EPINEPHRINE 1:200,000 20 ML PF ONE (14:01)
[2022-07-24] MEDS ORDERED: ePHEDrine sulfate 50 MG/ML AMP ONE (14:02)
--- NOTE | 2022-07-24 14:29 | Obstetrical Progress Note ---
Date of Service July 24, 2022 Assessment & Plan (1) Elective induction of labor planned: Plan: Patient is status post sublingual Cytotec Unable to perform AROM at this time due to patient discomfort, patient desires epidural at this time Plan for AROM after, and start oxytocin for augmentation Anticipate spontaneous vaginal delivery (2) Graves' disease: Admission and Anticipated Discharge Date Admission Date: July 23, 2022 Subjective Contractions are getting more painful, 8 out of 10, requesting medication Review of Systems Constitutional: as per Subjective / HPI Physical Exam Constitutional: WD/WN, vitals as above Results & Data Vital Signs (Past 12 Hours) Vital Signs Temp Pulse Resp BP Pulse Ox 07/24/22 07:10 36.6 C 16 07/24/22 14:26 86 98 07/24/22 14:21 96 07/24/22 14:21 65 07/24/22 14:21 62 156/83 H 07/24/22 14:19 70 93 07/24/22 14:16 75 100 07/24/22 14:11 68 98 07/24/22 14:06 63 97 07/24/22 14:01 73 98 07/24/22 13:56 68 97 07/24/22 12:00 16 07/24/22 12:00 36.6 C 16 07/24/22 11:20 69 138/90 07/24/22 11:11 60 138/87 07/24/22 07:10 36.6 C 75 16 129/78
[2022-07-24] MEDS ORDERED: ePHEDrine sulfate 50 MG/ML AMP IV PRN (14:59)
[2022-07-24] MEDS ORDERED: LIDOCAINE 2% MPF LOCAL 5 ML VIAL EPI PRN (14:59)
[2022-07-24] MEDS ORDERED: SODIUM CHLORIDE 0.9% PF INJ 10 ML VIAL EPI STA (14:59)
[2022-07-24] MEDS ORDERED: SODIUM CHLORIDE 0.9% PF INJ 10 ML VIAL EPI PRN (14:59)
[2022-07-24] MEDS ORDERED: NALBUPHINE HCL INJ 10 MG/ML AMP IV PRN (14:59)
[2022-07-24] MEDS ORDERED: NALOXONE HCL 0.4 MG/1 ML VIAL/CARP IV PRN (14:59)
[2022-07-24] MEDS ORDERED: LIDOCAINE 2%/EPINEPHRINE 1:200,000 20 ML PF EPI STA (14:59)
[2022-07-24] MEDS ORDERED: BUPIVACAINE 0.25% PF 30 ML VIAL EPI STA (14:59)
[2022-07-24] MEDS ORDERED: diphenhydrAMINE 50 MG/ML VIAL IV PRN (14:59)
[2022-07-24] MEDS ORDERED: BUPIVACAINE 0.25% PF 30 ML VIAL EPI PRN (14:59)
[2022-07-24] MEDS ORDERED: ROPIVACAINE 0.5% PF 5 MG/ML 20 ML VIAL EPI PRN (14:59)
[2022-07-24] MEDS ORDERED: fentaNYL citrate PF 100 MCG/2 ML VIAL EPI PRN (14:59)
[2022-07-24] MEDS ORDERED: NALOXONE HCL 1 MG in SODIUM CHLORIDE 0.9% 1000ML 1,000 ML IV PRN (14:59)
[2022-07-24] MEDS ORDERED: fentaNYL citrate PF 100 MCG/2 ML VIAL EPI STA (14:59)
--- NOTE | 2022-07-24 14:59 | Anesthesiology Consultation ---
Date of Service July 24, 2022 Assessment & Plan Chart Review Chart Review: Acceptable Risk for Labor Epidural Consults Requested none History Height/Weight Height: 5 ft 4 in Weight: 99.337 kg Allergies Allergy/AdvReac Type Severity Reaction Status Date / Time No Known Allergies Allergy Unverified 08/01/21 10:42 Medications Home Medications Medication Instructions Recorded Confirmed Last Taken albuterol sulfate 90 mcg/actuation 2 puff inhalation Q4H PRN 05/26/19 07/23/22 Unknown aerosol inhaler (Ventolin HFA) Shortness Of Breath Or Wheezing ferrous sulfate 325 mg (65 mg 325 mg PO BID 07/23/22 07/23/22 07/23/22 06:00 iron) tablet (Iron (ferrous sulfate)) Active Medications Generic Name Dose Route Start Last Admin Trade Name Freq PRN Reason Stop Dose Admin Acetaminophen 1,000 mg 07/23/22 19:15 07/23/22 19:33 Acetaminophen 500 Mg Tab PO 08/22/22 19:14 1,000 mg Q8H PRN Administration Pain Lactated Ringer's 1,000 mls @ 150 mls/hr 07/23/22 09:42 07/24/22 14:52 Lr IV 07/25/22 09:41 150 mls/hr .Q6H40M PRN Administration L&D Protocol Protocol Misoprostol 25 mcg 07/23/22 23:00 07/24/22 11:18 Misoprostol 25 Mcg Tab SL 08/22/22 22:59 25 mcg Q4H CAMRYN Administration Past Medical History Medical History (Updated 07/23/22 @ 09:57 by Susanna Dietrich MD) Anemia Graves' disease Graves' orbitopathy History of use of contraceptive intrauterine device (IUD) Hx of suicide attempt Hyperthyroidism Past Family History Family History Other Lung disease Past Surgical History Surgical History History of elective Social History Smoking Status: Never smoker Do You Dip or Chew Tobacco: No Hx Alcohol Use: No alcohol intake frequency: holidays/special occasions only Hx Substance Use: No substance use type: marijuana Last Used Substance Other:: daily Physical Exam Vital Signs Last Vital Signs Temp 36.6 C 07/24/22 12:00 Pulse 69 07/24/22 14:56 Resp 16 07/24/22 12:00 BP 137/68 07/24/22 14:56 Pulse Ox 100 07/24/22 14:56 Testing Laboratory Results 07/23/22 09:57
--- NOTE | 2022-07-24 15:01 | Anesthesiology Consultation ---
Date of Service July 24, 2022 Assessment & Plan Chart Review Chart Review: Acceptable Risk for Labor Epidural Consults Requested none History Height/Weight Height: 5 ft 4 in Weight: 99.337 kg Allergies Allergy/AdvReac Type Severity Reaction Status Date / Time No Known Allergies Allergy Unverified 08/01/21 10:42 Medications Home Medications Medication Instructions Recorded Confirmed Last Taken albuterol sulfate 90 mcg/actuation 2 puff inhalation Q4H PRN 05/26/19 07/23/22 Unknown aerosol inhaler (Ventolin HFA) Shortness Of Breath Or Wheezing ferrous sulfate 325 mg (65 mg 325 mg PO BID 07/23/22 07/23/22 07/23/22 06:00 iron) tablet (Iron (ferrous sulfate)) Active Medications Generic Name Dose Route Start Last Admin Trade Name Freq PRN Reason Stop Dose Admin Acetaminophen 1,000 mg 07/23/22 19:15 07/23/22 19:33 Acetaminophen 500 Mg Tab PO 08/22/22 19:14 1,000 mg Q8H PRN Administration Pain Lactated Ringer's 1,000 mls @ 150 mls/hr 07/23/22 09:42 07/24/22 14:52 Lr IV 07/25/22 09:41 150 mls/hr .Q6H40M PRN Administration L&D Protocol Protocol Misoprostol 25 mcg 07/23/22 23:00 07/24/22 11:18 Misoprostol 25 Mcg Tab SL 08/22/22 22:59 25 mcg Q4H CAMRYN Administration Past Medical History Medical History (Updated 07/23/22 @ 09:57 by Susanna Dietrich MD) Anemia Graves' disease Graves' orbitopathy History of use of contraceptive intrauterine device (IUD) Hx of suicide attempt Hyperthyroidism Past Family History Family History Other Lung disease Past Surgical History Surgical History History of elective Social History Smoking Status: Never smoker Do You Dip or Chew Tobacco: No Hx Alcohol Use: No alcohol intake frequency: holidays/special occasions only Hx Substance Use: No substance use type: marijuana Last Used Substance Other:: daily Physical Exam Vital Signs Last Vital Signs Temp 36.6 C 07/24/22 12:00 Pulse 70 07/24/22 14:59 Resp 16 07/24/22 12:00 BP 134/64 07/24/22 14:59 Pulse Ox 100 07/24/22 14:56 Testing Laboratory Results 07/23/22 09:57
[2022-07-24] MEDS ORDERED: OXYTOCIN 30 UNITS/500 ML BAG IV PRN (15:23)
--- NOTE | 2022-07-24 15:24 | Obstetrical Progress Note ---
Date of Service July 24, 2022 Assessment & Plan (1) Elective induction of labor planned: Plan: Status post epidural Start oxytocin for augmentation Anticipate spontaneous vaginal delivery (2) Graves' disease: (3) Elevated BP without diagnosis of hypertension: Plan: Patient's initial elevated blood pressure was most likely due to labor pain, but now is status post epidural and blood pressure is still elevated Will order PIH labs stat Admission and Anticipated Discharge Date Admission Date: July 23, 2022 Subjective Patient comfortable on epidural at this time, no complaints Physical Exam Genitourinary: heart tracing: Baseline 150, moderate variability, positive accelerations no decelerations, category 1 tracing Tocometer: Contractions every 2 to 3 minutes, hard to trace on her side Cervix: 3/60/-1, AROM performed with moderate amount of clear fluid, no cord felt, IUPC was placed no complications Results & Data Vital Signs (Past 12 Hours) Vital Signs Temp Pulse Resp BP Pulse Ox 07/24/22 07:10 36.6 C 16 07/24/22 15:21 99 07/24/22 15:21 62 07/24/22 15:21 70 148/83 H 07/24/22 15:19 76 144/73 H 07/24/22 15:16 66 100 07/24/22 15:17 63 137/69 07/24/22 15:15 71 138/74 07/24/22 15:13 64 129/70 07/24/22 15:11 79 98 07/24/22 15:10 79 122/59 L 07/24/22 15:09 78 117/56 L 07/24/22 15:07 75 116/70 07/24/22 15:06 73 99 07/24/22 15:05 75 117/59 L 07/24/22 15:03 70 115/55 L 07/24/22 15:01 98 07/24/22 15:01 70 07/24/22 15:01 78 123/58 L 07/24/22 14:59 70 134/64 07/24/22 14:56 69 137/68 100 07/24/22 14:55 75 18 137/69 07/24/22 14:53 77 133/65 07/24/22 14:51 100 07/24/22 14:51 69 07/24/22 14:51 73 143/83 H 07/24/22 14:49 71 18 126/65 07/24/22 14:46 75 98 07/24/22 14:47 76 133/66 07/24/22 14:45 62 16 136/67 07/24/22 14:43 62 135/66 07/24/22 14:41 64 16 98 07/24/22 14:36 76 100 07/24/22 14:35 72 153/69 H 07/24/22 14:31 68 100 07/24/22 14:26 86 98 07/24/22 14:21 96 07/24/22 14:21 65 07/24/22 14:21 62 156/83 H 07/24/22 14:19 70 93 07/24/22 14:16 75 100 07/24/22 14:11 68 98 07/24/22 14:06 63 97 07/24/22 14:01 73 98 07/24/22 13:56 68 97 07/24/22 12:00 16 07/24/22 12:00 36.6 C 16 07/24/22 11:20 69 138/90 07/24/22 11:11 60 138/87 07/24/22 07:10 36.6 C 75 16 129/78
[2022-07-24 16:05] LABS: Hematocrit (blood only) 36.8 % (37.0-47.0); Hemoglobin 12.8 g/dl (12.0-16.0); Mean Corpuscular Hemoglobin 27.5 pg (25.0-34.0); Mean Corpuscular Hgb Conc 34.8 g/dL (32.0-36.0); Mean Corpuscular Volume 79.1 fL (80.0-100.0); Mean Platelet Volume 11.1 fL (9.4-12.4); Platelet Count 191 K/uL (130-400); RDW Coefficient of Variation 12.6 % (11.5-14.5); RDW Standard Deviation 35.7 fL (36.4-46.3); Red Blood Count 4.65 M/uL (4.20-5.40); White Blood Count 11.86 K/ul (4.8-10.8)
[2022-07-24 16:25] LABS: Albumin Level 3.4 gm/dl (3.4-5.0); Bilirubin,Total 0.3 mg/dl (0.2-1.0); Calcium 8.9 mg/dl (8.6-10.3)
[2022-07-24 16:31] LABS: BUN Creatinine Ratio 10.4 (10-20); Creatinine Clr Calc Pharmacy 126.8 ml/min; Est GFR (African American) 123.5 ml/min; Est GFR (Non-African American) 106.6 ml/min; Globulin 3.4 gm/dl (2.5-4.0); Total Protein 6.8 gm/dl (6.0-8.3)
[2022-07-24 17:40] LABS: Total Protein Urine Random 6.6 mg/dl (0-11.9)
[2022-07-24 17:46] LABS: Creatinine Urine Random 88.2 mg/dl; Protein Creatinine Ratio Urine 0.1 (0-0.2)
--- NOTE | 2022-07-24 20:28 | Obstetrical Progress Note ---
Date of Service July 24, 2022 Assessment & Plan (1) Elective induction of labor planned: Plan: Continue oxytocin for augmentation Anticipate spontaneous vaginal delivery (2) Graves' disease: (3) Gestational [-induced] hypertension without significant proteinuria, third trimester: Plan: Based on elevated blood pressures 4 hours apart, protein to creatinine ratio 0.1 No severe range blood pressures Admission and Anticipated Discharge Date Admission Date: July 23, 2022 Subjective Patient comfortable on epidural at this time, no complaints Physical Exam Genitourinary: heart tracing: Baseline 145, minimal variability at times, positive accelerations, no decelerations Tocometer: Contractions every 2 minutes, oxytocin at 12 milliunits/h Cervix: 5/70/0, mild caput noted Results & Data Vital Signs (Past 12 Hours) Vital Signs Temp Pulse Resp BP Pulse Ox 07/24/22 20:21 97 H 97 07/24/22 20:16 69 97 07/24/22 20:11 68 98 07/24/22 20:06 67 98 07/24/22 20:01 64 99 07/24/22 19:56 62 98 07/24/22 19:51 76 99 07/24/22 19:46 77 98 07/24/22 19:41 74 98 07/24/22 19:30 18 07/24/22 19:30 36.7 C 18 07/24/22 19:38 71 127/58 L 07/24/22 19:36 68 98 07/24/22 19:31 71 99 07/24/22 19:26 68 98 07/24/22 19:23 77 93 07/24/22 19:22 74 125/58 L 07/24/22 19:21 74 100 07/24/22 19:16 64 100 07/24/22 19:11 83 99 07/24/22 19:06 72 99 07/24/22 19:00 16 07/24/22 19:00 16 07/24/22 19:01 63 99 07/24/22 17:25 36.9 C 07/24/22 18:56 58 L 98 07/24/22 18:52 61 171/86 H 07/24/22 18:51 62 99 07/24/22 18:46 67 99 07/24/22 18:45 72 92 07/24/22 18:30 16 07/24/22 18:30 16 07/24/22 18:41 64 97 07/24/22 18:36 59 L 97 07/24/22 18:37 57 L 156/80 H 07/24/22 18:31 57 L 97 07/24/22 18:26 60 97 07/24/22 18:23 58 L 152/98 H 92 07/24/22 18:21 63 97 07/24/22 18:16 69 96 07/24/22 18:11 67 96 07/24/22 18:12 70 93 07/24/22 18:00 16 07/24/22 18:00 16 07/24/22 18:06 62 95 07/24/22 18:07 64 128/72 07/24/22 18:00 16 07/24/22 18:00 16 07/24/22 18:01 60 95 07/24/22 17:30 16 07/24/22 17:30 16 07/24/22 17:56 58 L 95 07/24/22 17:51 96 07/24/22 17:51 60 07/24/22 17:51 55 L 158/83 H 07/24/22 17:46 56 L 95 07/24/22 17:41 58 L 95 07/24/22 17:36 96 07/24/22 17:36 60 07/24/22 17:36 56 L 155/81 H 07/24/22 17:31 59 L 96 07/24/22 17:26 62 97 07/24/22 17:22 57 L 157/81 H 07/24/22 17:21 57 L 97 07/24/22 17:16 68 98 07/24/22 17:11 63 99 07/24/22 17:00 18 07/24/22 17:00 18 07/24/22 17:06 96 07/24/22 17:06 73 07/24/22 17:06 65 141/67 H 07/24/22 17:01 65 96 07/24/22 16:56 64 99 07/24/22 16:51 69 135/63 98 07/24/22 16:46 68 99 07/24/22 16:41 63 99 07/24/22 16:36 99 07/24/22 16:36 64 07/24/22 16:36 62 139/63 07/24/22 16:30 16 07/24/22 16:30 16 07/24/22 16:31 68 100 07/24/22 16:26 62 100 07/24/22 16:21 66 147/68 H 100 07/24/22 15:00 16 07/24/22 15:00 16 07/24/22 16:20 94 H 92 07/24/22 15:30 16 07/24/22 15:30 16 07/24/22 15:22 36.6 C 07/24/22 16:16 57 L 98 07/24/22 16:11 58 L 97 07/24/22 16:06 98 07/24/22 16:06 62 07/24/22 16:06 52 L 129/74 07/24/22 16:01 59 L 98 07/24/22 15:56 64 98 07/24/22 15:51 98 07/24/22 15:51 65 07/24/22 15:51 69 121/72 07/24/22 15:46 73 96 07/24/22 15:41 63 98 07/24/22 15:36 98 07/24/22 15:36 71 07/24/22 15:36 64 115/62 07/24/22 15:31 100 07/24/22 15:31 72 07/24/22 15:31 60 129/60 07/24/22 15:26 68 100 07/24/22 15:25 61 134/81 07/24/22 15:21 99 07/24/22 15:21 62 07/24/22 15:21 70 148/83 H 07/24/22 15:19 76 144/73 H 07/24/22 15:16 66 100 07/24/22 15:17 63 137/69 07/24/22 15:15 71 138/74 07/24/22 15:13 64 129/70 07/24/22 15:11 79 98 07/24/22 15:10 79 122/59 L 07/24/22 15:09 78 117/56 L 07/24/22 15:07 75 116/70 07/24/22 15:06 73 99 07/24/22 15:05 75 117/59 L 07/24/22 15:03 70 115/55 L 07/24/22 15:01 98 07/24/22 15:01 70 05/10/23 15:01 78 123/58 L 07/24/22 14:59 70 134/64 07/24/22 14:56 69 137/68 100 07/24/22 14:55 75 18 137/69 07/24/22 14:53 77 133/65 07/24/22 14:51 100 07/24/22 14:51 69 07/24/22 14:51 73 143/83 H 07/24/22 14:49 71 18 126/65 07/24/22 14:46 75 98 07/24/22 14:47 76 133/66 07/24/22 14:45 62 16 136/67 07/24/22 14:43 62 135/66 07/24/22 14:41 64 16 98 07/24/22 14:36 76 100 07/24/22 14:35 72 153/69 H 07/24/22 14:31 68 100 07/24/22 14:26 86 98 07/24/22 14:21 96 07/24/22 14:21 65 07/24/22 14:21 62 156/83 H 07/24/22 14:19 70 93 07/24/22 14:16 75 100 07/24/22 14:11 68 98 07/24/22 14:06 63 97 07/24/22 14:01 73 98 07/24/22 13:56 68 97 07/24/22 12:00 16 07/24/22 12:00 36.6 C 16 07/24/22 11:20 69 138/90 07/24/22 11:11 60 138/87 Laboratory Results Laboratory Results WBC 11.86 K/ul (4.8-10.8) H 07/24/22 15:35 RBC 4.65 M/uL (4.20-5.40) 07/24/22 15:35 Hgb 12.8 g/dl (12.0-16.0) 07/24/22 15:35 Hct 36.8 % (37.0-47.0) L 07/24/22 15:35 MCV 79.1 fL (80.0-100.0) L 07/24/22 15:35 MCH 27.5 pg (25.0-34.0) 07/24/22 15:35 MCHC 34.8 g/dL (32.0-36.0) 07/24/22 15:35 RDW Std Deviation 35.7 fL (36.4-46.3) L 07/24/22 15:35 RDW Coeff of Haseeb 12.6 % (11.5-14.5) 07/24/22 15:35 Plt Count 191 K/uL (130-400) 07/24/22 15:35 MPV 11.1 fL (9.4-12.4) 07/24/22 15:35 Sodium 136 mmol/L (136-145) 07/24/22 15:35 Potassium 4.0 mmol/L (3.5-5.1) 07/24/22 15:35 Chloride 105 mmol/L (98-107) 07/24/22 15:35 Carbon Dioxide 24 mmol/L (21-32) 07/24/22 15:35 Anion Gap 7 (3-11) 07/24/22 15:35 BUN 8 mg/dl (6-23) 07/24/22 15:35 Creatinine 0.77 mg/dl (0.6-1.2) 07/24/22 15:35 Est Cr Clr Drug Dosing 126.8 ml/min 07/24/22 15:35 Est GFR ( Amer) 123.5 ml/min 07/24/22 15:35 Est GFR (Non-Af Amer) 106.6 ml/min 07/24/22 15:35 BUN/Creatinine Ratio 10.4 (10-20) 07/24/22 15:35 Glucose 81 mg/dl (70-99(Fasting)) 07/24/22 15:35 Calcium 8.9 mg/dl (8.6-10.3) 07/24/22 15:35 Total Bilirubin 0.3 mg/dl (0.2-1.0) 07/24/22 15:35 AST 15 U/L (13-39) 07/24/22 15:35 ALT 10 U/L (7-52) 07/24/22 15:35 Alkaline Phosphatase 180 U/L (34-104) H 07/24/22 15:35 Total Protein 6.8 gm/dl (6.0-8.3) 07/24/22 15:35 Albumin 3.4 gm/dl (3.4-5.0) 07/24/22 15:35 Globulin 3.4 gm/dl (2.5-4.0) 07/24/22 15:35 Albumin/Globulin Ratio 1.0 (0.9-2) 07/24/22 15:35 TSH 0.016 uIu/ml (0.300-4.500) L 07/23/22 10:02 Free T4 0.76 ng/dl (0.61-1.60) 07/23/22 10:02 Ur Random Creatinine 88.2 mg/dl 07/24/22 17:00 U Random Total Protein 6.6 mg/dl (0-11.9) 07/24/22 17:00 Protein/Creatinin Ratio 0.1 (0-0.2) 07/24/22 17:00 SARS-CoV-2, RNA, NAAT NEGATIVE (NEGATIVE) 07/23/22 08:00
[2022-07-24] MEDS: fentaNYL 2MCG/ML ROPIVACAINE 1.25MG/ML 100 ML BAG EPI PRN (22:53)
[2022-07-24] MEDS: ACETAMINOPHEN 500 MG TAB PO PRN (23:05)
--- NOTE | 2022-07-25 00:19 | Anesthesia Procedure Note ---
Date of Service July 25, 2022 Anesthesia Epidural Re-Dose Vital Signs Temp Pulse Resp BP Pulse Ox 37.2 C 74 20 127/66 96 07/24/22 23:00 07/25/22 00:16 07/24/22 23:30 07/24/22 21:37 07/25/22 00:16 Notes Pain Intensity: 6 Dilatation (cm): 5.0 Effacement (%): 70 Called by nursing to evaluate epidural as the patient is having increased pain. The epidural was re-dosed with the following medications (all medications via epidural route) after negative aspiration of the epidural catheter for CSF/HEME. 2% lidocaine 5ml with fentanyl 100mcg. After Epidural Re-Dose Mental Status: alert / awake / arousable Pain: improving with treatment Airway Patency, RR, SpO2: stable & adequate BP & HR: stable & adequate
[2022-07-25] MEDS: LACTATED RINGER'S 1,000 ML IV PRN ×2 (02:50→08:01)
[2022-07-25] MEDS ORDERED: GENTAMICIN CONSULT ACTIVE PRN (02:57)
[2022-07-25] MEDS ORDERED: Nursing to Pharmacy Communication SCH (03:00)
[2022-07-25] MEDS: ACETAMINOPHEN 500 MG TAB PO PRN ×2 (03:07→07:22)
[2022-07-25] MEDS ORDERED: GENTAMICIN SULFATE 500 MG in DEXTROSE 5% 100 ML IV STA (03:07)
--- NOTE | 2022-07-25 03:09 | Obstetrical Progress Note ---
Date of Service July 25, 2022 Assessment & Plan (1) Elective induction of labor planned: Plan: Continue oxytocin for augmentation Anticipate spontaneous vaginal delivery (2) Graves' disease: (3) Gestational [-induced] hypertension without significant proteinuria, third trimester: Plan: Based on elevated blood pressures 4 hours apart, protein to creatinine ratio 0.1 No severe range blood pressures (4) Chorioamnionitis: Plan: Possible chorio based on maternal temp and tachycardia 1000mg tylenol stat amp 2g q6h, gent 5mg/kg stat If no improvement with tachy/cat II, will proceed with C section Admission and Anticipated Discharge Date Admission Date: July 23, 2022 Subjective Patient comfortable on epidural at this time, no complaints Called by nursing staff for temp 38C Physical Exam Genitourinary: FHT: baseline 165-170, mod variability, no accels, no decls, cat II [place]: contractions q4 min (pit currently stopped) Cx: 6/90/0, caput noted Results & Data Vital Signs (Past 12 Hours) Vital Signs Temp Pulse Resp BP Pulse Ox 07/25/22 02:56 88 96 07/25/22 02:51 95 H 98 07/25/22 02:46 97 H 99 07/25/22 02:41 81 98 07/25/22 02:36 81 98 07/25/22 02:31 79 98 07/25/22 02:20 18 07/25/22 02:20 37.4 C 18 07/25/22 02:28 18 07/25/22 02:28 37.7 C H 18 07/25/22 02:26 84 98 07/25/22 02:21 93 H 99 07/25/22 02:16 75 97 07/25/22 02:11 73 98 07/25/22 02:06 82 97 07/25/22 02:00 18 07/25/22 02:00 18 07/25/22 02:01 80 99 07/25/22 01:56 81 99 07/25/22 01:51 89 99 07/25/22 01:30 18 07/25/22 01:30 37.5 C 18 07/25/22 01:46 78 99 07/25/22 01:41 79 98 07/25/22 01:36 79 98 07/25/22 01:31 92 H 97 07/25/22 01:26 94 H 96 07/25/22 01:00 18 07/25/22 01:00 18 07/25/22 01:23 75 94 07/25/22 01:21 77 93 07/25/22 01:16 80 95 07/25/22 01:15 98 H 94 07/25/22 01:11 76 95 07/25/22 01:06 86 95 07/25/22 01:01 77 94 07/25/22 00:56 76 95 07/25/22 00:55 80 94 07/25/22 00:51 76 95 07/25/22 00:50 77 94 07/25/22 00:46 80 95 07/25/22 00:45 79 94 07/25/22 00:41 76 95 07/25/22 00:36 78 95 07/25/22 00:37 92 H 93 07/25/22 00:31 75 95 07/25/22 00:26 76 95 07/25/22 00:21 71 96 07/25/22 00:16 74 96 07/25/22 00:11 69 96 07/25/22 00:06 68 97 07/25/22 00:01 71 97 07/24/22 23:56 70 97 07/24/22 23:51 71 98 07/24/22 23:46 72 98 07/24/22 23:41 75 97 07/24/22 23:36 83 98 07/24/22 23:30 20 07/24/22 23:30 20 07/24/22 23:31 81 98 07/24/22 23:26 74 98 07/24/22 23:21 96 07/24/22 23:21 82 07/24/22 23:21 91 H 90 07/24/22 23:16 70 98 07/24/22 23:00 18 07/24/22 23:00 37.2 C 18 07/24/22 23:11 75 100 07/24/22 23:06 73 97 07/24/22 23:01 77 100 07/24/22 22:56 93 H 100 07/24/22 22:51 91 H 100 07/24/22 22:50 96 H 92 07/24/22 22:46 76 98 07/24/22 22:41 76 98 07/24/22 22:36 76 98 07/24/22 22:31 75 98 07/24/22 22:26 75 98 07/24/22 22:21 75 99 07/24/22 22:16 75 99 07/24/22 22:11 72 99 07/24/22 22:06 71 99 07/24/22 22:01 79 99 07/24/22 21:56 77 98 07/24/22 21:51 87 97 07/24/22 21:46 73 97 07/24/22 21:41 82 97 07/24/22 21:40 89 93 07/24/22 21:37 73 127/66 07/24/22 21:36 75 98 07/24/22 21:31 77 98 07/24/22 21:26 71 99 07/24/22 21:23 71 123/67 07/24/22 21:21 74 98 07/24/22 21:16 71 99 07/24/22 21:00 18 07/24/22 21:00 37.2 C 18 07/24/22 21:11 70 100 07/24/22 21:08 68 123/65 07/24/22 21:06 75 99 07/24/22 21:05 79 94 07/24/22 21:01 74 99 07/24/22 20:56 78 99 07/24/22 20:54 73 121/56 L 07/24/22 20:51 71 99 07/24/22 20:46 76 100 07/24/22 20:41 79 100 07/24/22 20:39 70 97/60 L 07/24/22 20:36 76 100 07/24/22 20:31 63 99 07/24/22 20:26 74 98 07/24/22 20:21 97 H 97 07/24/22 20:16 69 97 07/24/22 20:11 68 98 07/24/22 20:06 67 98 07/24/22 20:01 64 99 07/24/22 19:56 62 98 07/24/22 19:51 76 99 07/24/22 19:46 77 98 07/24/22 19:41 74 98 07/24/22 19:30 18 07/24/22 19:30 36.7 C 18 07/24/22 19:38 71 127/58 L 07/24/22 19:36 68 98 07/24/22 19:31 71 99 07/24/22 19:26 68 98 07/24/22 19:23 77 93 07/24/22 19:22 74 125/58 L 07/24/22 19:21 74 100 07/24/22 19:16 64 100 07/24/22 19:11 83 99 07/24/22 19:06 72 99 07/24/22 19:00 16 07/24/22 19:00 16 07/24/22 19:01 63 99 07/24/22 17:25 36.9 C 07/24/22 18:56 58 L 98 07/24/22 18:52 61 171/86 H 07/24/22 18:51 62 99 07/24/22 18:46 67 99 07/24/22 18:45 72 92 07/24/22 18:30 16 07/24/22 18:30 16 07/24/22 18:41 64 97 07/24/22 18:36 59 L 97 07/24/22 18:37 57 L 156/80 H 07/24/22 18:31 57 L 97 07/24/22 18:26 60 97 07/24/22 18:23 58 L 152/98 H 92 07/24/22 18:21 63 97 07/24/22 18:16 69 96 07/24/22 18:11 67 96 07/24/22 18:12 70 93 07/24/22 18:00 16 07/24/22 18:00 16 07/24/22 18:06 62 95 07/24/22 18:07 64 128/72 07/24/22 18:00 16 07/24/22 18:00 16 07/24/22 18:01 60 95 07/24/22 17:30 16 07/24/22 17:30 16 07/24/22 17:56 58 L 95 07/24/22 17:51 96 07/24/22 17:51 60 07/24/22 17:51 55 L 158/83 H 07/24/22 17:46 56 L 95 07/24/22 17:41 58 L 95 07/24/22 17:36 96 07/24/22 17:36 60 07/24/22 17:36 56 L 155/81 H 07/24/22 17:31 59 L 96 07/24/22 17:26 62 97 07/24/22 17:22 57 L 157/81 H 07/24/22 17:21 57 L 97 07/24/22 17:16 68 98 07/24/22 17:11 63 99 07/24/22 17:00 18 07/24/22 17:00 18 07/24/22 17:06 96 07/24/22 17:06 73 07/24/22 17:06 65 141/67 H 07/24/22 17:01 65 96 07/24/22 16:56 64 99 07/24/22 16:51 69 135/63 98 07/24/22 16:46 68 99 07/24/22 16:41 63 99 07/24/22 16:36 99 07/24/22 16:36 64 07/24/22 16:36 62 139/63 07/24/22 16:30 16 07/24/22 16:30 16 07/24/22 16:31 68 100 07/24/22 16:26 62 100 07/24/22 16:21 66 147/68 H 100 07/24/22 15:00 16 07/24/22 15:00 16 07/24/22 16:20 94 H 92 07/24/22 15:30 16 07/24/22 15:30 16 07/24/22 15:22 36.6 C 07/24/22 16:16 57 L 98 07/24/22 16:11 58 L 97 07/24/22 16:06 98 07/24/22 16:06 62 07/24/22 16:06 52 L 129/74 07/24/22 16:01 59 L 98 07/24/22 15:56 64 98 07/24/22 15:51 98 07/24/22 15:51 65 07/24/22 15:51 69 121/72 07/24/22 15:46 73 96 07/24/22 15:41 63 98 07/24/22 15:36 98 07/24/22 15:36 71 07/24/22 15:36 64 115/62 07/24/22 15:31 100 07/24/22 15:31 72 07/24/22 15:31 60 129/60 07/24/22 15:26 68 100 07/24/22 15:25 61 134/81 07/24/22 15:21 99 07/24/22 15:21 62 07/24/22 15:21 70 148/83 H 07/24/22 15:19 76 144/73 H 07/24/22 15:16 66 100 07/24/22 15:17 63 137/69 07/24/22 15:15 71 138/74 07/24/22 15:13 64 129/70 07/24/22 15:11 79 98 07/24/22 15:10 79 122/59 L 07/24/22 15:09 78 117/56 L 07/24/22 15:07 75 116/70 07/24/22 15:06 73 99 07/24/22 15:05 75 117/59 L 07/24/22 15:03 70 115/55 L 07/24/22 15:01 98 07/24/22 15:01 70 07/24/22 15:01 78 123/58 L
[2022-07-25] MEDS: AMPICILLIN 2,000 MG in SODIUM CHLOR 0.9% AD-VAN 100 ML IV SCH ×4 (03:25→21:56)
[2022-07-25] MEDS: miSOPROStoL 25 MCG TAB SL SCH (03:35)
[2022-07-25] MEDS ORDERED: ceFAZolin 2000MG 2,000 MG/15 ML SYR IV SCH (06:00)
[2022-07-25] MEDS ORDERED: CITRIC ACID/SODIUM CITRATE 15 ML UDC PO SCH (06:00)
[2022-07-25] MEDS ORDERED: CLINDAMYCIN/D5W 900 MG/50 ML BAG IV SCH (06:00)
[2022-07-25] MEDS: fentaNYL 2MCG/ML ROPIVACAINE 1.25MG/ML 100 ML BAG EPI PRN (06:22)
--- NOTE | 2022-07-25 06:48 | Obstetrical Progress Note ---
Date of Service July 25, 2022 Assessment & Plan (1) Elective induction of labor planned: Plan: Oxytocin discontinued at this time due to 3-minute deceleration which recovered. We will restart oxytocin when category 1 tracing Anticipate spontaneous vaginal delivery (2) Graves' disease: (3) Gestational [-induced] hypertension without significant proteinuria, third trimester: Plan: Based on elevated blood pressures 4 hours apart, protein to creatinine ratio 0.1 No severe range blood pressures (4) Chorioamnionitis: Plan: suspected chorio based on maternal temp and tachycardia continue p 2g q6h, gent 5mg/kg Admission and Anticipated Discharge Date Admission Date: July 23, 2022 Subjective Patient getting more uncomfortable with contractions at this time Physical Exam Genitourinary: heart tracing: Baseline 150, moderate variability, positive accelerations, no decelerations but after I had seen the patient noted 3-minute long deceleration which the oxytocin was discontinued and baby recovered Cervix: 8/90/+1 station. caput Results & Data Vital Signs (Past 12 Hours) Vital Signs Temp Pulse Resp BP Pulse Ox 07/25/22 06:41 86 99 07/25/22 06:36 88 96 07/25/22 06:30 18 07/25/22 06:30 37.4 C 18 07/25/22 06:31 72 96 07/25/22 06:26 76 98 07/25/22 06:21 72 98 07/25/22 06:16 71 99 07/25/22 06:11 71 98 07/25/22 06:06 74 99 07/25/22 06:01 107 H 97 07/25/22 05:56 79 95 07/25/22 05:54 75 99/56 L 07/25/22 05:51 79 96 07/25/22 05:46 83 95 07/25/22 05:41 79 95 07/25/22 05:37 76 98/56 L 07/25/22 05:36 84 95 07/25/22 05:31 80 95 07/25/22 05:26 80 95 07/25/22 05:22 79 96/51 L 07/25/22 05:21 81 96 07/25/22 05:16 83 95 07/25/22 05:11 80 95 07/25/22 05:08 75 102/51 L 07/25/22 05:06 87 97 05/11/23 05:00 18 07/25/22 05:00 37.4 C 18 07/25/22 05:01 86 95 07/25/22 04:56 93 H 96 07/25/22 04:30 18 07/25/22 04:30 18 07/25/22 04:53 74 111/56 L 07/25/22 04:51 89 96 07/25/22 04:46 78 96 07/25/22 04:41 80 96 07/25/22 04:36 80 95 07/25/22 04:31 80 96 07/25/22 04:26 93 H 96 07/25/22 04:27 83 94 07/25/22 04:21 84 95 07/25/22 04:16 80 95 07/25/22 04:11 75 96 07/25/22 04:06 78 95 07/25/22 04:00 18 07/25/22 04:00 18 07/25/22 04:01 78 95 07/25/22 03:56 79 95 07/25/22 03:51 79 96 07/25/22 03:46 80 96 07/25/22 03:41 84 96 07/25/22 03:30 20 07/25/22 03:30 20 07/25/22 03:36 82 96 07/25/22 03:31 81 97 07/25/22 03:26 79 97 07/25/22 03:21 93 H 99 07/25/22 03:16 77 97 07/25/22 03:11 78 97 07/25/22 03:06 80 97 07/25/22 02:54 38.3 C H 07/25/22 03:01 87 99 07/25/22 02:56 88 96 07/25/22 02:51 95 H 98 07/25/22 02:46 97 H 99 07/25/22 02:41 81 98 07/25/22 02:36 81 98 07/25/22 02:31 79 98 07/25/22 02:20 18 07/25/22 02:20 37.4 C 18 07/25/22 02:28 18 07/25/22 02:28 37.7 C H 18 07/25/22 02:26 84 98 07/25/22 02:21 93 H 99 07/25/22 02:16 75 97 07/25/22 02:11 73 98 07/25/22 02:06 82 97 07/25/22 02:00 18 07/25/22 02:00 18 07/25/22 02:01 80 99 07/25/22 01:56 81 99 07/25/22 01:51 89 99 07/25/22 01:30 18 07/25/22 01:30 37.5 C 18 07/25/22 01:46 78 99 07/25/22 01:41 79 98 07/25/22 01:36 79 98 07/25/22 01:31 92 H 97 07/25/22 01:26 94 H 96 07/25/22 01:00 18 07/25/22 01:00 18 07/25/22 01:23 75 94 07/25/22 01:21 77 93 07/25/22 01:16 80 95 07/25/22 01:15 98 H 94 07/25/22 01:11 76 95 07/25/22 01:06 86 95 07/25/22 01:01 77 94 07/25/22 00:56 76 95 07/25/22 00:55 80 94 07/25/22 00:51 76 95 07/25/22 00:50 77 94 07/25/22 00:46 80 95 07/25/22 00:45 79 94 07/25/22 00:41 76 95 07/25/22 00:36 78 95 07/25/22 00:37 92 H 93 07/25/22 00:31 75 95 07/25/22 00:26 76 95 07/25/22 00:21 71 96 07/25/22 00:16 74 96 07/25/22 00:11 69 96 07/25/22 00:06 68 97 07/25/22 00:01 71 97 07/24/22 23:56 70 97 07/24/22 23:51 71 98 07/24/22 23:46 72 98 07/24/22 23:41 75 97 07/24/22 23:36 83 98 07/24/22 23:30 20 07/24/22 23:30 20 07/24/22 23:31 81 98 07/24/22 23:26 74 98 07/24/22 23:21 96 07/24/22 23:21 82 07/24/22 23:21 91 H 90 07/24/22 23:16 70 98 07/24/22 23:00 18 07/24/22 23:00 37.2 C 18 07/24/22 23:11 75 100 07/24/22 23:06 73 97 07/24/22 23:01 77 100 07/24/22 22:56 93 H 100 07/24/22 22:51 91 H 100 07/24/22 22:50 96 H 92 07/24/22 22:46 76 98 07/24/22 22:41 76 98 07/24/22 22:36 76 98 07/24/22 22:31 75 98 07/24/22 22:26 75 98 07/24/22 22:21 75 99 07/24/22 22:16 75 99 07/24/22 22:11 72 99 07/24/22 22:06 71 99 07/24/22 22:01 79 99 07/24/22 21:56 77 98 07/24/22 21:51 87 97 07/24/22 21:46 73 97 07/24/22 21:41 82 97 07/24/22 21:40 89 93 07/24/22 21:37 73 127/66 07/24/22 21:36 75 98 07/24/22 21:31 77 98 07/24/22 21:26 71 99 07/24/22 21:23 71 123/67 07/24/22 21:21 74 98 07/24/22 21:16 71 99 07/24/22 21:00 18 07/24/22 21:00 37.2 C 18 07/24/22 21:11 70 100 07/24/22 21:08 68 123/65 07/24/22 21:06 75 99 07/24/22 21:05 79 94 07/24/22 21:01 74 99 07/24/22 20:56 78 99 07/24/22 20:54 73 121/56 L 07/24/22 20:51 71 99 07/24/22 20:46 76 100 07/24/22 20:41 79 100 07/24/22 20:39 70 97/60 L 07/24/22 20:36 76 100 07/24/22 20:31 63 99 07/24/22 20:26 74 98 07/24/22 20:21 97 H 97 07/24/22 20:16 69 97 07/24/22 20:11 68 98 07/24/22 20:06 67 98 07/24/22 20:01 64 99 07/24/22 19:56 62 98 07/24/22 19:51 76 99 07/24/22 19:46 77 98 07/24/22 19:41 74 98 07/24/22 19:30 18 07/24/22 19:30 36.7 C 18 07/24/22 19:38 71 127/58 L 07/24/22 19:36 68 98 07/24/22 19:31 71 99 07/24/22 19:26 68 98 07/24/22 19:23 77 93 07/24/22 19:22 74 125/58 L 07/24/22 19:21 74 100 07/24/22 19:16 64 100 07/24/22 19:11 83 99 07/24/22 19:06 72 99 07/24/22 19:00 16 07/24/22 19:00 16 07/24/22 19:01 63 99 07/24/22 18:56 58 L 98 07/24/22 18:52 61 171/86 H 07/24/22 18:51 62 99
[2022-07-25] MEDS ORDERED: NURSING L&D Epidural Breakthrough Pain Update ONE (07:15)
--- NOTE | 2022-07-25 08:33 | Obstetrical Progress Note ---
Date of Service July 25, 2022 Assessment & Plan Admission and Anticipated Discharge Date Admission Date: July 23, 2022 Subjective Patient is seen and examined. AROM and started Oxytocin yesterday 15:30 FHR had tachycardia with maternal fever. on Amp+Gent FHR had deceleration which recovered after Oxytocin is off but has been with minimal variability. VE; 6/ 70%/0, coned head, asynclitic?, dark meconium, scalp stimulation increased variability for 1 minute and then back to minimal again Discussed finding of arrest of dilatation, dark meconium and categ II strip remote from delivery, recommended Ceserean section now. Patient understands C section is a major surgery, with risks including but not limited to bleeding , infection, injury to surrounding organs like bowels, bladder, ureters, adhesions, scarring, wound infection, blood cloths in legs/ lungs, longer recovery. All questions were answered. She wants to discuss with her family in the room and then decide. Results & Data Vital Signs (Past 12 Hours) Vital Signs Temp Pulse Resp BP Pulse Ox 07/25/22 07:10 37.5 C 16 07/25/22 07:10 16 07/25/22 08:26 84 100 07/25/22 08:24 83 124/68 07/25/22 08:21 77 100 07/25/22 08:16 81 99 07/25/22 08:11 73 96 07/25/22 08:06 71 97 07/25/22 08:01 69 98 07/25/22 07:56 71 98 07/25/22 07:51 66 100 07/25/22 07:10 16 07/25/22 07:10 37.5 C 16 07/25/22 07:48 90 93 07/25/22 07:46 71 99 07/25/22 07:41 74 100 07/25/22 07:38 71 124/63 07/25/22 07:36 72 99 07/25/22 07:31 80 100 07/25/22 07:26 78 100 07/25/22 07:21 83 100 07/25/22 07:16 82 100 07/25/22 07:11 74 98 07/25/22 07:06 74 97 07/25/22 07:00 18 07/25/22 07:00 18 07/25/22 07:01 78 96 07/25/22 06:56 76 96 07/25/22 06:51 74 97 07/25/22 06:46 70 98 07/25/22 06:41 86 99 07/25/22 06:36 88 96 07/25/22 06:30 18 07/25/22 06:30 37.4 C 18 07/25/22 06:31 72 96 07/25/22 06:26 76 98 07/25/22 06:21 72 98 07/25/22 06:16 71 99 07/25/22 06:11 71 98 07/25/22 06:06 74 99 07/25/22 06:01 107 H 97 07/25/22 05:56 79 95 07/25/22 05:54 75 99/56 L 07/25/22 05:51 79 96 07/25/22 05:46 83 95 07/25/22 05:41 79 95 07/25/22 05:37 76 98/56 L 07/25/22 05:36 84 95 07/25/22 05:31 80 95 07/25/22 05:26 80 95 07/25/22 05:22 79 96/51 L 07/25/22 05:21 81 96 07/25/22 05:16 83 95 07/25/22 05:11 80 95 07/25/22 05:08 75 102/51 L 07/25/22 05:06 87 97 07/25/22 05:00 18 07/25/22 05:00 37.4 C 18 07/25/22 05:01 86 95 07/25/22 04:56 93 H 96 07/25/22 04:30 18 07/25/22 04:30 18 07/25/22 04:53 74 111/56 L 07/25/22 04:51 89 96 07/25/22 04:46 78 96 07/25/22 04:41 80 96 07/25/22 04:36 80 95 07/25/22 04:31 80 96 07/25/22 04:26 93 H 96 07/25/22 04:27 83 94 07/25/22 04:21 84 95 07/25/22 04:16 80 95 07/25/22 04:11 75 96 07/25/22 04:06 78 95 07/25/22 04:00 18 07/25/22 04:00 18 0511/23 04:01 78 95 07/25/22 03:56 79 95 07/25/22 03:51 79 96 07/25/22 03:46 80 96 07/25/22 03:41 84 96 07/25/22 03:30 20 07/25/22 03:30 20 07/25/22 03:36 82 96 07/25/22 03:31 81 97 07/25/22 03:26 79 97 07/25/22 03:21 93 H 99 07/25/22 03:16 77 97 07/25/22 03:11 78 97 07/25/22 03:06 80 97 07/25/22 02:54 38.3 C H 07/25/22 03:01 87 99 07/25/22 02:56 88 96 07/25/22 02:51 95 H 98 07/25/22 02:46 97 H 99 07/25/22 02:41 81 98 07/25/22 02:36 81 98 07/25/22 02:31 79 98 07/25/22 02:20 18 07/25/22 02:20 37.4 C 18 07/25/22 02:28 18 07/25/22 02:28 37.7 C H 18 07/25/22 02:26 84 98 07/25/22 02:21 93 H 99 07/25/22 02:16 75 97 07/25/22 02:11 73 98 07/25/22 02:06 82 97 07/25/22 02:00 18 07/25/22 02:00 18 07/25/22 02:01 80 99 07/25/22 01:56 81 99 07/25/22 01:51 89 99 07/25/22 01:30 18 07/25/22 01:30 37.5 C 18 07/25/22 01:46 78 99 07/25/22 01:41 79 98 07/25/22 01:36 79 98 07/25/22 01:31 92 H 97 07/25/22 01:26 94 H 96 07/25/22 01:00 18 07/25/22 01:00 18 07/25/22 01:23 75 94 07/25/22 01:21 77 93 07/25/22 01:16 80 95 07/25/22 01:15 98 H 94 05/11/23 01:11 76 95 07/25/22 01:06 86 95 07/25/22 01:01 77 94 07/25/22 00:56 76 95 07/25/22 00:55 80 94 07/25/22 00:51 76 95 07/25/22 00:50 77 94 07/25/22 00:46 80 95 07/25/22 00:45 79 94 07/25/22 00:41 76 95 07/25/22 00:36 78 95 07/25/22 00:37 92 H 93 07/25/22 00:31 75 95 07/25/22 00:26 76 95 07/25/22 00:21 71 96 07/25/22 00:16 74 96 07/25/22 00:11 69 96 07/25/22 00:06 68 97 07/25/22 00:01 71 97 07/24/22 23:56 70 97 07/24/22 23:51 71 98 07/24/22 23:46 72 98 07/24/22 23:41 75 97 07/24/22 23:36 83 98 07/24/22 23:30 20 07/24/22 23:30 20 07/24/22 23:31 81 98 07/24/22 23:26 74 98 07/24/22 23:21 96 07/24/22 23:21 82 07/24/22 23:21 91 H 90 07/24/22 23:16 70 98 07/24/22 23:00 18 07/24/22 23:00 37.2 C 18 07/24/22 23:11 75 100 07/24/22 23:06 73 97 07/24/22 23:01 77 100 07/24/22 22:56 93 H 100 07/24/22 22:51 91 H 100 07/24/22 22:50 96 H 92 07/24/22 22:46 76 98 07/24/22 22:41 76 98 07/24/22 22:36 76 98 07/24/22 22:31 75 98 07/24/22 22:26 75 98 07/24/22 22:21 75 99 07/24/22 22:16 75 99 07/24/22 22:11 72 99 07/24/22 22:06 71 99 07/24/22 22:01 79 99 07/24/22 21:56 77 98 07/24/22 21:51 87 97 07/24/22 21:46 73 97 07/24/22 21:41 82 97 07/24/22 21:40 89 93 07/24/22 21:37 73 127/66 07/24/22 21:36 75 98 07/24/22 21:31 77 98 07/24/22 21:26 71 99 07/24/22 21:23 71 123/67 07/24/22 21:21 74 98 07/24/22 21:16 71 99 07/24/22 21:00 18 07/24/22 21:00 37.2 C 18 07/24/22 21:11 70 100 07/24/22 21:08 68 123/65 07/24/22 21:06 75 99 07/24/22 21:05 79 94 07/24/22 21:01 74 99 07/24/22 20:56 78 99 07/24/22 20:54 73 121/56 L 07/24/22 20:51 71 99 07/24/22 20:46 76 100 07/24/22 20:41 79 100 07/24/22 20:39 70 97/60 L 07/24/22 20:36 76 100 07/24/22 20:31 63 99
[2022-07-25 08:49] LABS: Basophils # (auto) 0.02 K/uL (0-0.2); Basophils % (auto) 0.1 %; Eosinophils # (auto) 0.01 K/uL (0-0.50); Eosinophils % (auto) 0.1 %; Hematocrit (blood only) 35.5 % (37.0-47.0); Hemoglobin 12.4 g/dl (12.0-16.0); Immature Granulocytes % (auto) 0.6 %; Lymphocytes # (auto) 1.52 K/uL (1.2-3.4); Lymphocytes % (auto) 9.6 %; Mean Corpuscular Hemoglobin 27.4 pg (25.0-34.0); Mean Corpuscular Hgb Conc 34.9 g/dL (32.0-36.0); Mean Corpuscular Volume 78.5 fL (80.0-100.0); Mean Platelet Volume 10.9 fL (9.4-12.4); Monocytes # (auto) 1.38 K/uL (0.11-0.59); Monocytes % (auto) 8.7 %; Neutrophils # (auto) 12.87 K/uL (1.40-6.50); Neutrophils % (auto) 80.9 %; Platelet Count 178 K/uL (130-400); RDW Coefficient of Variation 12.6 % (11.5-14.5); RDW Standard Deviation 35.8 fL (36.4-46.3); Red Blood Count 4.52 M/uL (4.20-5.40)
--- NOTE | 2022-07-25 09:28 | Obstetrical Progress Note ---
Date of Service July 25, 2022 Assessment & Plan Admission and Anticipated Discharge Date Admission Date: July 23, 2022 Subjective The patient has decided to have delivery. She understands the risks an d benefits and signed informed consent. All questions were answered. Results & Data Vital Signs (Past 12 Hours) Vital Signs Temp Pulse Resp BP Pulse Ox 07/25/22 07:10 37.5 C 16 07/25/22 07:10 16 07/25/22 09:23 86 91 07/25/22 09:21 92 H 99 07/25/22 09:16 83 99 07/25/22 09:11 80 99 07/25/22 09:06 75 99 07/25/22 09:01 81 100 07/25/22 08:56 81 100 07/25/22 08:51 79 100 07/25/22 08:46 81 100 07/25/22 08:30 16 07/25/22 08:30 16 07/25/22 08:41 82 99 07/25/22 08:38 77 105/56 L 07/25/22 08:36 89 98 07/25/22 08:31 86 100 07/25/22 08:26 84 100 07/25/22 08:24 83 124/68 07/25/22 08:21 77 100 07/25/22 08:16 81 99 07/25/22 08:11 73 96 07/25/22 08:06 71 97 07/25/22 08:01 69 98 07/25/22 07:56 71 98 07/25/22 07:51 66 100 07/25/22 07:10 16 07/25/22 07:10 37.5 C 16 07/25/22 07:48 90 93 07/25/22 07:46 71 99 07/25/22 07:41 74 100 07/25/22 07:38 71 124/63 07/25/22 07:36 72 99 07/25/22 07:31 80 100 07/25/22 07:26 78 100 07/25/22 07:21 83 100 07/25/22 07:16 82 100 07/25/22 07:11 74 98 07/25/22 07:06 74 97 07/25/22 07:00 18 07/25/22 07:00 18 07/25/22 07:01 78 96 07/25/22 06:56 76 96 05/11/23 06:51 74 97 07/25/22 06:46 70 98 07/25/22 06:41 86 99 07/25/22 06:36 88 96 07/25/22 06:30 18 07/25/22 06:30 37.4 C 18 07/25/22 06:31 72 96 07/25/22 06:26 76 98 07/25/22 06:21 72 98 07/25/22 06:16 71 99 07/25/22 06:11 71 98 07/25/22 06:06 74 99 07/25/22 06:01 107 H 97 07/25/22 05:56 79 95 07/25/22 05:54 75 99/56 L 07/25/22 05:51 79 96 07/25/22 05:46 83 95 07/25/22 05:41 79 95 07/25/22 05:37 76 98/56 L 07/25/22 05:36 84 95 07/25/22 05:31 80 95 07/25/22 05:26 80 95 07/25/22 05:22 79 96/51 L 07/25/22 05:21 81 96 07/25/22 05:16 83 95 07/25/22 05:11 80 95 07/25/22 05:08 75 102/51 L 07/25/22 05:06 87 97 07/25/22 05:00 18 07/25/22 05:00 37.4 C 18 07/25/22 05:01 86 95 07/25/22 04:56 93 H 96 07/25/22 04:30 18 07/25/22 04:30 18 07/25/22 04:53 74 111/56 L 07/25/22 04:51 89 96 07/25/22 04:46 78 96 07/25/22 04:41 80 96 07/25/22 04:36 80 95 07/25/22 04:31 80 96 07/25/22 04:26 93 H 96 07/25/22 04:27 83 94 07/25/22 04:21 84 95 07/25/22 04:16 80 95 07/25/22 04:11 75 96 07/25/22 04:06 78 95 07/25/22 04:00 18 07/25/22 04:00 18 07/25/22 04:01 78 95 07/25/22 03:56 79 95 07/25/22 03:51 79 96 07/25/22 03:46 80 96 07/25/22 03:41 84 96 07/25/22 03:30 20 07/25/22 03:30 20 07/25/22 03:36 82 96 07/25/22 03:31 81 97 07/25/22 03:26 79 97 07/25/22 03:21 93 H 99 07/25/22 03:16 77 97 07/25/22 03:11 78 97 07/25/22 03:06 80 97 07/25/22 02:54 38.3 C H 07/25/22 03:01 87 99 07/25/22 02:56 88 96 07/25/22 02:51 95 H 98 07/25/22 02:46 97 H 99 07/25/22 02:41 81 98 07/25/22 02:36 81 98 07/25/22 02:31 79 98 07/25/22 02:20 18 07/25/22 02:20 37.4 C 18 07/25/22 02:28 18 07/25/22 02:28 37.7 C H 18 07/25/22 02:26 84 98 07/25/22 02:21 93 H 99 07/25/22 02:16 75 97 07/25/22 02:11 73 98 07/25/22 02:06 82 97 07/25/22 02:00 18 07/25/22 02:00 18 07/25/22 02:01 80 99 07/25/22 01:56 81 99 07/25/22 01:51 89 99 07/25/22 01:30 18 07/25/22 01:30 37.5 C 18 07/25/22 01:46 78 99 07/25/22 01:41 79 98 07/25/22 01:36 79 98 07/25/22 01:31 92 H 97 07/25/22 01:26 94 H 96 07/25/22 01:00 18 07/25/22 01:00 18 07/25/22 01:23 75 94 07/25/22 01:21 77 93 07/25/22 01:16 80 95 07/25/22 01:15 98 H 94 07/25/22 01:11 76 95 07/25/22 01:06 86 95 07/25/22 01:01 77 94 07/25/22 00:56 76 95 07/25/22 00:55 80 94 07/25/22 00:51 76 95 07/25/22 00:50 77 94 07/25/22 00:46 80 95 07/25/22 00:45 79 94 07/25/22 00:41 76 95 07/25/22 00:36 78 95 07/25/22 00:37 92 H 93 07/25/22 00:31 75 95 07/25/22 00:26 76 95 07/25/22 00:21 71 96 07/25/22 00:16 74 96 07/25/22 00:11 69 96 07/25/22 00:06 68 97 07/25/22 00:01 71 97 07/24/22 23:56 70 97 07/24/22 23:51 71 98 07/24/22 23:46 72 98 07/24/22 23:41 75 97 07/24/22 23:36 83 98 07/24/22 23:30 20 07/24/22 23:30 20 07/24/22 23:31 81 98 07/24/22 23:26 74 98 07/24/22 23:21 96 07/24/22 23:21 82 07/24/22 23:21 91 H 90 07/24/22 23:16 70 98 07/24/22 23:00 18 07/24/22 23:00 37.2 C 18 07/24/22 23:11 75 100 07/24/22 23:06 73 97 07/24/22 23:01 77 100 07/24/22 22:56 93 H 100 07/24/22 22:51 91 H 100 07/24/22 22:50 96 H 92 07/24/22 22:46 76 98 07/24/22 22:41 76 98 07/24/22 22:36 76 98 07/24/22 22:31 75 98 07/24/22 22:26 75 98 07/24/22 22:21 75 99 07/24/22 22:16 75 99 07/24/22 22:11 72 99 07/24/22 22:06 71 99 07/24/22 22:01 79 99 07/24/22 21:56 77 98 07/24/22 21:51 87 97 07/24/22 21:46 73 97 07/24/22 21:41 82 97 07/24/22 21:40 89 93 07/24/22 21:37 73 127/66 07/24/22 21:36 75 98 07/24/22 21:31 77 98
[2022-07-25] MEDS ORDERED: LACTATED RINGER'S 1,000 ML IV SCH ×3 (09:30→12:00)
[2022-07-25] MEDS ORDERED: CITRIC ACID/SODIUM CITRATE 15 ML UDC ONE (09:48)
[2022-07-25] MEDS ORDERED: OXYTOCIN 10 UNITS/ML 10ML VIAL ONE (09:56)
[2022-07-25] MEDS ORDERED: LIDOCAINE 2%/EPINEPHRINE 1:200,000 20 ML PF ONE (09:56)
[2022-07-25] MEDS ORDERED: MoRPHine SULFATE PF 1 MG/ML 10 ML AMP/VIAL ONE (09:57)
--- NOTE | 2022-07-25 10:07 | Anesthesiology Consultation ---
Date of Service July 25, 2022 Assessment & Plan Chart Review Chart Review: Acceptable Risk for Surgery Consults Requested none ASA [id number] Proposed Anesthesia Anesthesia Type: Labor Epidural Risk / Benefits Reviewed With: PT / POA / Parent / Guardian, Accepts Plan and Informed Consent Obtained History Surgery Operation Date: 07/25/22 10:30 Proposed Procedures p Section in LD - Susanna Dietrich MD Height/Weight Height: 5 ft 4 in Weight: 99.337 kg Allergies Allergy/AdvReac Type Severity Reaction Status Date / Time No Known Allergies Allergy Unverified 08/01/21 10:42 Medications Home Medications Medication Instructions Recorded Confirmed Last Taken albuterol sulfate 90 mcg/actuation 2 puff inhalation Q4H PRN 05/26/19 07/23/22 Unknown aerosol inhaler (Ventolin HFA) Shortness Of Breath Or Wheezing ferrous sulfate 325 mg (65 mg 325 mg PO BID 07/23/22 07/23/22 07/23/22 06:00 iron) tablet (Iron (ferrous sulfate)) Active Medications Generic Name Dose Route Start Last Admin Trade Name Freq PRN Reason Stop Dose Admin Acetaminophen 1,000 mg 07/25/22 03:15 07/25/22 07:22 Acetaminophen 500 Mg Tab PO 08/22/22 19:14 1,000 mg Q4H PRN Administration Pain Oxytocin 30 units in 500 mls @ 0 mls/hr 07/24/22 15:23 07/25/22 06:45 Pitocin IV 07/26/22 15:22 0 units/hr .Q0M PRN 0 mls/hr Labor Induction/Augmentation Titration Protocol 0 UNITS/HR Ampicillin Sodium 2,000 mg/ 100 mls @ 200 mls/hr 07/25/22 04:00 07/25/22 03:25 Sodium Chloride IV 08/04/22 03:59 200 mls/hr Q6H CAMRYN Administration Clindamycin Phosphate 900 mg in 50 mls @ 100 mls/hr 07/25/22 06:00 07/25/22 09:59 Cleocin/D5w IV 07/25/22 18:00 100 mls/hr PREOP CAMRYN Administration Protocol Misoprostol 25 mcg 07/23/22 23:00 07/25/22 03:35 Misoprostol 25 Mcg Tab SL 08/22/22 22:59 Not Given Q4H CAMRYN Ropivacaine 100 ml 07/24/22 14:59 07/25/22 06:22 Fentanyl 2mcg/Ml Ropivacaine 1.25mg/Ml 100 Ml Bag EPI 07/25/22 14:58 100 ml PRN PRN Administration Pain R/T Labor Protocol Past Medical History Medical History Anemia Elevated BP without diagnosis of hypertension Gestational [-induced] hypertension without significant proteinuria, third trimester Graves' disease Graves' orbitopathy History of use of contraceptive intrauterine device (IUD) Hx of suicide attempt Hyperthyroidism Exercise / Class Metabolic Activity II 4-5 Yardwork/Stairs/Walk up hill Past Family History Family History Other Lung disease Past Surgical History Surgical History History of elective Past Anesthesia History No Hx of Anesthesia Complications and No Family Hx of Anesthesia Complications History of PONV No Hx of PONV and No Hx of Motion Sickness Social History Smoking Status: Never smoker Do You Dip or Chew Tobacco: No Hx Alcohol Use: No alcohol intake frequency: holidays/special occasions only Hx Substance Use: No substance use type: marijuana Last Used Substance Other:: daily Physical Exam Vital Signs Last Vital Signs Temp 98.6 F 07/25/22 09:00 Pulse 80 07/25/22 10:01 Resp 16 07/25/22 09:00 BP 105/56 L 07/25/22 08:38 Pulse Ox 98 07/25/22 10:01 ENMT Mouth: no dentition abnormality Thyromental Distance: > or= 3.5 Finger Breadths Mallampati Class: II Neck normal visual inspection Respiratory normal respiratory effort Auscultation: lungs clear to auscultation bilaterally Cardiovascular Rate/Rhythm: regular rate and regular rhythm Testing Laboratory Results 07/25/22 08:27 07/24/22 15:35
[2022-07-25] MEDS ORDERED: METHYLERGONOVINE MALEATE 0.2 MG/ML AMP ONE (11:05)
[2022-07-25] MEDS ORDERED: ePHEDrine sulfate 50 MG/ML AMP IV PRN (11:16)
[2022-07-25] MEDS ORDERED: NALOXONE HCL 1 MG in SODIUM CHLORIDE 0.9% 1000ML 1,000 ML IV PRN (11:16)
[2022-07-25] MEDS ORDERED: NALOXONE HCL 0.4 MG/1 ML VIAL/CARP IV PRN (11:16)
[2022-07-25] MEDS ORDERED: LACTATED RINGER'S 500 ML IV PRN (11:16)
[2022-07-25] MEDS ORDERED: NALBUPHINE HCL INJ 10 MG/ML AMP IV PRN (11:16)
[2022-07-25] MEDS ORDERED: ONDANSETRON INJ 2 MG/ML 2 ML VIAL IV PRN ×2 (11:16→11:47)
[2022-07-25] MEDS ORDERED: diphenhydrAMINE 50 MG/ML VIAL IV PRN (11:16)
[2022-07-25] MEDS ORDERED: MoRPHine SULFATE PF 1 MG/ML 10 ML AMP/VIAL INT SPINAL ONE (11:16)
[2022-07-25] MEDS ORDERED: NALOXONE HCL 0.08 MG in SYRINGE 1.8 ML IV PRN (11:16)
[2022-07-25] MEDS ORDERED: MEPERIDINE HCL 25 MG/ML CARP/VIAL IV PRN (11:16)
[2022-07-25] MEDS ORDERED: ONDANSETRON INJ 2 MG/ML 2 ML VIAL ONE (11:17)
[2022-07-25] MEDS ORDERED: SODIUM CHLORIDE 0.9% 1000ML 1,000 ML IV SCH (11:30)
[2022-07-25] MEDS ORDERED: NO NARCOTICS OR SEDATIVES SCH (11:30)
[2022-07-25] MEDS ORDERED: HYDROCORTISONE ACETATE 25 MG SUPP PR PRN (11:47)
[2022-07-25] MEDS ORDERED: MEASLES, MUMPS & RUBELLA VIRUS VIAL SQ ONE (11:47)
[2022-07-25] MEDS ORDERED: DIPHTHERIA/TETANUS/PERTUSSIS Vaccine (Tdap, Age 7+yrs) 0.5mL SYR/VL IM ONE (11:47)
[2022-07-25] MEDS ORDERED: BENZOCAINE 20% AER SPR 82.5 GM CAN EXT PRN (11:47)
[2022-07-25] MEDS ORDERED: MAGNESIUM HYDROXIDE SUSP 30 ML UDC PO PRN (11:47)
[2022-07-25] MEDS ORDERED: SENNA 8.6 MG TAB PO PRN (11:47)
[2022-07-25] MEDS ORDERED: miSOPROStoL 200 MCG TAB ONE (11:50)
[2022-07-25] MEDS ORDERED: fentaNYL citrate PF 100 MCG/2 ML VIAL ONE (11:58)
[2022-07-25 12:19] LABS: Base Excess Cord Arterial Bld -2.9 mEq/L (-9-1.8); CO2 Cord Arterial Blood 47 mmHg (39.1-73.5); HCO3 Cord Arterial Blood 24 mmol/L (19.7-28.5); Oxygen Sat Cord Arterial Blood < 60.0 % (<60); PO2 Cord Arterial Blood 16 mmHg (4.1-31.7); pH Cord Arterial Blood 7.31 (7.1-7.38)
[2022-07-25] MEDS ORDERED: ACETAMINOPHEN 1,000 MG/100 ML VIAL IV STA (12:19)
[2022-07-25] MEDS: KETOROLAC 30 MG/ML VIAL IV PRN ×2 (12:26→17:57)
--- NOTE | 2022-07-25 13:09 | Anesthesia Procedure Note ---
Date of Service July 25, 2022 Anesthesia Post Epidural Note Vital Signs Vital Signs: Temp Pulse Resp BP Pulse Ox 99.1 F 82 18 157/65 H 92 07/25/22 12:45 07/25/22 13:05 07/25/22 12:45 07/25/22 12:55 07/25/22 13:05 Pain Intensity Abdomen: Pain Intensity: 4 Notes Mental Status: alert / awake / arousable and participated in evaluation Nausea / Vomiting: adequately controlled Pain: adequately controlled Airway Patency, RR, SpO2: stable & adequate BP & HR: stable & adequate Hydration State: stable & adequate Neuraxial Anesthesia: was administered and sensory block is resolving Anesthetic Complications: no major complications apparent and Pt Satisfied with anesthetic care Epidural: Removed without complications and With tip intact
--- NOTE | 2022-07-25 13:10 | Anesthesiology Progress Note ---
Date of Service July 25, 2022 Anesthesia Post Procedure Vital Signs Vital Signs: Temp Pulse Resp BP Pulse Ox 07/25/22 12:45 99.1 F 98 H 18 156/65 H 96 07/25/22 12:30 98.4 F 72 96 H 159/72 H 96 07/25/22 12:15 97.7 F 75 18 146/84 H 100 07/25/22 12:32 97.9 F 72 20 146/84 H 100 07/25/22 13:05 82 92 07/25/22 13:03 79 99 07/25/22 12:58 94 H 98 07/25/22 12:55 80 157/65 H 07/25/22 12:53 79 99 07/25/22 12:48 80 99 07/25/22 12:45 93 H 156/65 H 07/25/22 12:43 95 H 95 07/25/22 12:38 78 97 07/25/22 12:39 76 159/72 H 91 07/25/22 12:33 64 100 07/25/22 12:28 89 99 07/25/22 12:26 77 87 L 07/25/22 12:23 77 100 07/25/22 12:18 80 99 07/25/22 12:15 73 146/84 H 07/25/22 12:13 74 100 07/25/22 12:08 80 100 07/25/22 12:03 71 100 07/25/22 12:04 70 135/80 07/25/22 10:23 86 111/64 07/25/22 10:21 93 H 100 07/25/22 10:19 76 111/65 07/25/22 10:16 85 99 07/25/22 07:10 99.5 F 16 07/25/22 07:10 16 07/25/22 10:11 70 99 07/25/22 10:06 78 98 07/25/22 10:01 80 98 07/25/22 09:56 90 99 07/25/22 09:51 78 97 07/25/22 09:46 73 97 07/25/22 09:41 76 97 07/25/22 09:00 16 07/25/22 09:00 98.6 F 16 07/25/22 09:36 78 99 07/25/22 09:31 77 98 07/25/22 09:26 81 99 05/11/23 09:23 86 91 07/25/22 09:21 92 H 99 07/25/22 09:16 83 99 07/25/22 09:11 80 99 07/25/22 09:06 75 99 07/25/22 09:01 81 100 07/25/22 08:56 81 100 07/25/22 08:51 79 100 07/25/22 08:46 81 100 07/25/22 08:30 16 07/25/22 08:30 16 07/25/22 08:41 82 99 07/25/22 08:38 77 105/56 L 07/25/22 08:36 89 98 07/25/22 08:31 86 100 07/25/22 08:26 84 100 07/25/22 08:24 83 124/68 07/25/22 08:21 77 100 07/25/22 08:16 81 99 07/25/22 08:11 73 96 07/25/22 08:06 71 97 07/25/22 08:01 69 98 07/25/22 07:56 71 98 07/25/22 07:51 66 100 07/25/22 07:10 16 07/25/22 07:10 99.5 F 16 07/25/22 07:48 90 93 07/25/22 07:46 71 99 07/25/22 07:41 74 100 07/25/22 07:38 71 124/63 07/25/22 07:36 72 99 07/25/22 07:31 80 100 07/25/22 07:26 78 100 07/25/22 07:21 83 100 07/25/22 07:16 82 100 07/25/22 07:11 74 98 07/25/22 07:06 74 97 07/25/22 07:00 18 07/25/22 07:00 18 07/25/22 07:01 78 96 07/25/22 06:56 76 96 07/25/22 06:51 74 97 07/25/22 06:46 70 98 07/25/22 06:41 86 99 07/25/22 06:36 88 96 07/25/22 06:30 18 07/25/22 06:30 99.3 F 18 07/25/22 06:31 72 96 07/25/22 06:26 76 98 07/25/22 06:21 72 98 07/25/22 06:16 71 99 07/25/22 06:11 71 98 07/25/22 06:06 74 99 07/25/22 06:01 107 H 97 07/25/22 05:56 79 95 07/25/22 05:54 75 99/56 L 07/25/22 05:51 79 96 07/25/22 05:46 83 95 07/25/22 05:41 79 95 07/25/22 05:37 76 98/56 L 07/25/22 05:36 84 95 07/25/22 05:31 80 95 07/25/22 05:26 80 95 07/25/22 05:22 79 96/51 L 07/25/22 05:21 81 96 07/25/22 05:16 83 95 07/25/22 05:11 80 95 07/25/22 05:08 75 102/51 L 07/25/22 05:06 87 97 07/25/22 05:00 18 07/25/22 05:00 99.3 F 18 07/25/22 05:01 86 95 07/25/22 04:56 93 H 96 07/25/22 04:30 18 07/25/22 04:30 18 07/25/22 04:53 74 111/56 L 07/25/22 04:51 89 96 07/25/22 04:46 78 96 07/25/22 04:41 80 96 07/25/22 04:36 80 95 07/25/22 04:31 80 96 07/25/22 04:26 93 H 96 07/25/22 04:27 83 94 07/25/22 04:21 84 95 07/25/22 04:16 80 95 07/25/22 04:11 75 96 07/25/22 04:06 78 95 07/25/22 04:00 18 07/25/22 04:00 18 07/25/22 04:01 78 95 07/25/22 03:56 79 95 07/25/22 03:51 79 96 07/25/22 03:46 80 96 07/25/22 03:41 84 96 07/25/22 03:30 20 07/25/22 03:30 20 07/25/22 03:36 82 96 07/25/22 03:31 81 97 07/25/22 03:26 79 97 07/25/22 03:21 93 H 99 07/25/22 03:16 77 97 07/25/22 03:11 78 97 07/25/22 03:06 80 97 07/25/22 02:54 100.9 F H 07/25/22 03:01 87 99 07/25/22 02:56 88 96 07/25/22 02:51 95 H 98 07/25/22 02:46 97 H 99 07/25/22 02:41 81 98 07/25/22 02:36 81 98 07/25/22 02:31 79 98 07/25/22 02:20 18 07/25/22 02:20 99.3 F 18 07/25/22 02:28 18 07/25/22 02:28 99.9 F H 18 07/25/22 02:26 84 98 07/25/22 02:21 93 H 99 07/25/22 02:16 75 97 07/25/22 02:11 73 98 07/25/22 02:06 82 97 07/25/22 02:00 18 07/25/22 02:00 18 07/25/22 02:01 80 99 07/25/22 01:56 81 99 07/25/22 01:51 89 99 07/25/22 01:30 18 07/25/22 01:30 99.5 F 18 07/25/22 01:46 78 99 07/25/22 01:41 79 98 07/25/22 01:36 79 98 07/25/22 01:31 92 H 97 07/25/22 01:26 94 H 96 07/25/22 01:00 18 07/25/22 01:00 18 07/25/22 01:23 75 94 07/25/22 01:21 77 93 07/25/22 01:16 80 95 07/25/22 01:15 98 H 94 07/25/22 01:11 76 95 07/25/22 01:06 86 95 07/25/22 01:01 77 94 07/25/22 00:56 76 95 07/25/22 00:55 80 94 07/25/22 00:51 76 95 07/25/22 00:50 77 94 07/25/22 00:46 80 95 07/25/22 00:45 79 94 07/25/22 00:41 76 95 07/25/22 00:36 78 95 07/25/22 00:37 92 H 93 07/25/22 00:31 75 95 07/25/22 00:26 76 95 07/25/22 00:21 71 96 07/25/22 00:16 74 96 07/25/22 00:11 69 96 07/25/22 00:06 68 97 07/25/22 00:01 71 97 07/24/22 23:56 70 97 07/24/22 23:51 71 98 07/24/22 23:46 72 98 07/24/22 23:41 75 97 07/24/22 23:36 83 98 07/24/22 23:30 20 07/24/22 23:30 20 07/24/22 23:31 81 98 07/24/22 23:26 74 98 07/24/22 23:21 96 07/24/22 23:21 82 07/24/22 23:21 91 H 90 07/24/22 23:16 70 98 07/24/22 23:00 18 07/24/22 23:00 99.0 F 18 07/24/22 23:11 75 100 07/24/22 23:06 73 97 07/24/22 23:01 77 100 07/24/22 22:56 93 H 100 07/24/22 22:51 91 H 100 07/24/22 22:50 96 H 92 07/24/22 22:46 76 98 07/24/22 22:41 76 98 07/24/22 22:36 76 98 07/24/22 22:31 75 98 07/24/22 22:26 75 98 07/24/22 22:21 75 99 07/24/22 22:16 75 99 07/24/22 22:11 72 99 07/24/22 22:06 71 99 07/24/22 22:01 79 99 07/24/22 21:56 77 98 07/24/22 21:51 87 97 07/24/22 21:46 73 97 07/24/22 21:41 82 97 07/24/22 21:40 89 93 07/24/22 21:37 73 127/66 07/24/22 21:36 75 98 07/24/22 21:31 77 98 05/10/23 21:26 71 99 07/24/22 21:23 71 123/67 07/24/22 21:21 74 98 07/24/22 21:16 71 99 07/24/22 21:00 18 07/24/22 21:00 99.0 F 18 07/24/22 21:11 70 100 07/24/22 21:08 68 123/65 07/24/22 21:06 75 99 07/24/22 21:05 79 94 07/24/22 21:01 74 99 07/24/22 20:56 78 99 07/24/22 20:54 73 121/56 L 07/24/22 20:51 71 99 07/24/22 20:46 76 100 07/24/22 20:41 79 100 07/24/22 20:39 70 97/60 L 07/24/22 20:36 76 100 07/24/22 20:31 63 99 07/24/22 20:26 74 98 07/24/22 20:21 97 H 97 07/24/22 20:16 69 97 07/24/22 20:11 68 98 07/24/22 20:06 67 98 07/24/22 20:01 64 99 07/24/22 19:56 62 98 07/24/22 19:51 76 99 07/24/22 19:46 77 98 07/24/22 19:41 74 98 07/24/22 19:30 18 07/24/22 19:30 98.1 F 18 07/24/22 19:38 71 127/58 L 07/24/22 19:36 68 98 07/24/22 19:31 71 99 07/24/22 19:26 68 98 07/24/22 19:23 77 93 07/24/22 19:22 74 125/58 L 07/24/22 19:21 74 100 07/24/22 19:16 64 100 07/24/22 19:11 83 99 07/24/22 19:06 72 99 07/24/22 19:00 16 07/24/22 19:00 16 07/24/22 19:01 63 99 07/24/22 17:25 98.4 F 07/24/22 18:56 58 L 98 07/24/22 18:52 61 171/86 H 07/24/22 18:51 62 99 07/24/22 18:46 67 99 07/24/22 18:45 72 92 07/24/22 18:30 16 07/24/22 18:30 16 07/24/22 18:41 64 97 07/24/22 18:36 59 L 97 07/24/22 18:37 57 L 156/80 H 07/24/22 18:31 57 L 97 07/24/22 18:26 60 97 07/24/22 18:23 58 L 152/98 H 92 07/24/22 18:21 63 97 07/24/22 18:16 69 96 07/24/22 18:11 67 96 07/24/22 18:12 70 93 07/24/22 18:00 16 07/24/22 18:00 16 07/24/22 18:06 62 95 07/24/22 18:07 64 128/72 07/24/22 18:00 16 07/24/22 18:00 16 07/24/22 18:01 60 95 07/24/22 17:30 16 07/24/22 17:30 16 07/24/22 17:56 58 L 95 07/24/22 17:51 96 07/24/22 17:51 60 07/24/22 17:51 55 L 158/83 H 07/24/22 17:46 56 L 95 07/24/22 17:41 58 L 95 07/24/22 17:36 96 07/24/22 17:36 60 07/24/22 17:36 56 L 155/81 H 07/24/22 17:31 59 L 96 07/24/22 17:26 62 97 07/24/22 17:22 57 L 157/81 H 07/24/22 17:21 57 L 97 07/24/22 17:16 68 98 07/24/22 17:11 63 99 07/24/22 17:00 18 07/24/22 17:00 18 07/24/22 17:06 96 07/24/22 17:06 73 07/24/22 17:06 65 141/67 H 07/24/22 17:01 65 96 07/24/22 16:56 64 99 07/24/22 16:51 69 135/63 98 07/24/22 16:46 68 99 07/24/22 16:41 63 99 07/24/22 16:36 99 07/24/22 16:36 64 07/24/22 16:36 62 139/63 07/24/22 16:30 16 07/24/22 16:30 16 07/24/22 16:31 68 100 07/24/22 16:26 62 100 07/24/22 16:21 66 147/68 H 100 07/24/22 15:00 16 07/24/22 15:00 16 07/24/22 16:20 94 H 92 07/24/22 15:30 16 07/24/22 15:30 16 07/24/22 15:22 97.9 F 07/24/22 16:16 57 L 98 07/24/22 16:11 58 L 97 07/24/22 16:06 98 07/24/22 16:06 62 07/24/22 16:06 52 L 129/74 07/24/22 16:01 59 L 98 07/24/22 15:56 64 98 07/24/22 15:51 98 07/24/22 15:51 65 07/24/22 15:51 69 121/72 07/24/22 15:46 73 96 07/24/22 15:41 63 98 07/24/22 15:36 98 07/24/22 15:36 71 07/24/22 15:36 64 115/62 07/24/22 15:31 100 07/24/22 15:31 72 07/24/22 15:31 60 129/60 07/24/22 15:26 68 100 07/24/22 15:25 61 134/81 07/24/22 15:21 99 07/24/22 15:21 62 07/24/22 15:21 70 148/83 H 07/24/22 15:19 76 144/73 H 07/24/22 15:16 66 100 07/24/22 15:17 63 137/69 07/24/22 15:15 71 138/74 07/24/22 15:13 64 129/70 07/24/22 15:11 79 98 07/24/22 15:10 79 122/59 L 07/24/22 15:09 78 117/56 L 07/24/22 15:07 75 116/70 07/24/22 15:06 73 99 05/10/23 15:05 75 117/59 L 07/24/22 15:03 70 115/55 L 07/24/22 15:01 98 07/24/22 15:01 70 07/24/22 15:01 78 123/58 L 07/24/22 14:59 70 134/64 07/24/22 14:56 69 137/68 100 07/24/22 14:55 75 18 137/69 07/24/22 14:53 77 133/65 07/24/22 14:51 100 07/24/22 14:51 69 07/24/22 14:51 73 143/83 H 07/24/22 14:49 71 18 126/65 07/24/22 14:46 75 98 07/24/22 14:47 76 133/66 07/24/22 14:45 62 16 136/67 07/24/22 14:43 62 135/66 07/24/22 14:41 64 16 98 07/24/22 14:36 76 100 07/24/22 14:35 72 153/69 H 07/24/22 14:31 68 100 07/24/22 14:26 86 98 07/24/22 14:21 96 07/24/22 14:21 65 07/24/22 14:21 62 156/83 H 07/24/22 14:19 70 93 07/24/22 14:16 75 100 07/24/22 14:11 68 98 07/24/22 14:06 63 97 07/24/22 14:01 73 98 07/24/22 13:56 68 97 Pain Intensity Abdomen: Pain Intensity: 4 Transfer of Care Handoff Completed per policy Notes Mental Status: alert / awake / arousable and participated in evaluation Patient Amnestic to Procedure: Yes Nausea / Vomiting: adequately controlled Pain: adequately controlled Airway Patency, RR, SpO2: stable & adequate BP & HR: stable & adequate Hydration State: stable & adequate Neuraxial Anesthesia: was administered and sensory block is resolving Anesthetic Complications: no major complications apparent and Pt Satisfied with anesthetic care
--- NOTE | 2022-07-25 14:07 | Operative Report (OR) ---
PREOPERATIVE DIAGNOSES: 1. at term. 2. Failure to progress. 3. Nonreassuring heart rate. POSTOPERATIVE DIAGNOSES: 1. at term. 2. Failure to progress. 3. Nonreassuring heart rate. SURGEON: Susanna Dietrich M.D. STONE HAND: Faustino Gorman M.D. ANESTHESIA: General. DRAINS: None. ESTIMATED BLOOD LOSS: 600 mL. INTRAVENOUS FLUIDS: 1400 mL. URINE OUTPUT: 900 mL. SPECIMENS: Placenta. INTRAOPERATIVE COMPLICATIONS: None. PATIENT CONDITION: Stable. DISPOSITION: Postanesthesia care unit. ATTESTATION: Dr. Hylton performed the entire procedure. ATTESTATION FOR STONE HAND: Records Management Analyst was necessary to help with retraction and manipulation of instr uments in order to provide for safe surgery. FINDINGS: Live in cephalic presentation. Weight and Apgars are in the pediatric record. Tamica baldomero and adnexa unremarkable. Rest of abdomen was unremarkable. DESCRIPTION OF PROCEDURE: The patient was taken to the operating room where she was prepped and drap ed in normal sterile fashion in dorsal lithotomy position. Time-out was called. At this point, an e pidural analgesia was going to be used for the procedure. A Pfannenstiel incision was made with a sc alpel and carried down to the fascia. Fascia was incised in the midline and extended laterally on librado th sides. At this point, the patient began to experience severe pain and decision was therefore made to convert the procedure to general. The patient was intubated by anesthesia, and under general ane sthesia, the procedure was continued. Incision was extended laterally on both sides. Fascia was sha rply dissected off the rectus abdominis muscle superiorly and inferiorly. Peritoneum was identified and entered sharply. Once inside the abdomen, the vesicouterine peritoneum was sharply dissected off the lower segment of the uterus. A low-transverse incision was made on the uterus and extended late rally on both sides. Infant was delivered. There was meconium. Cord was clamped and cut. Meconium was suctioned and handed over to the waiting pediatric team. Details of the infant's Apgars and weight are in the pediatric record. Placenta was manually removed. Uterus was exteriorized and cleared of all clots and debris. Uterus was closed in 2 layers with Vicryl suture. There was good h emostasis post repair. Copious amount of irrigation was used to irrigate the abdomen. As stated abo ve, both tubes and ovaries appeared grossly normal. Once the uterus was returned to the abdominal ca vity, the peritoneum was closed with plain suture. The rectus abdominis muscles were reapproximated with plain suture. Fascia was closed with Vicryl suture in running fashion. Subcutaneous space was irrigated and closed with plain suture. Skin was closed with munir. All instruments were removed from the abdomen and accounted for x2 including sponges, needles, and re tractors. The patient was stable and sent to recovery. Job ID: [id number]
--- NOTE | 2022-07-25 14:52 | Pharmacy Report ---
Pharmacy PK ABX Note - Date of Service July 25, 2022 - Assessment and Plan Assessment 26 year old F receiving Gentamicin, Ampicillin and Clindamycin for treatment of possible chorioamnionitis. * Day #1 of therapy. * Remains febrile. White count up to 15.9k. To OR for today. * Continue gent for now with no plans of ordering a level unless therapy extends beyond 72 hours. Plan Gentamicin * Once-daily extended interval dosing of 5 mg/kg IV every 24 hours (based on actual body weight) * 500 mg IV every 24 hours Pharmacy will continue to follow and will adjust dose/frequency as necessary. Thank you.
[2022-07-25] MEDS: OXYTOCIN 20 UNITS in D5W AND LACTATED RINGERS 1,000 ML IV SCH (16:01)
[2022-07-25] MEDS: SIMETHICONE 80 MG CHEW PO SCH ×2 (17:57→19:29)
[2022-07-25] MEDS: CLINDAMYCIN/D5W 900 MG/50 ML BAG IV SCH (19:29)
[2022-07-26] MEDS: KETOROLAC 30 MG/ML VIAL IV PRN (01:18)
[2022-07-26] MEDS: OXYTOCIN 20 UNITS in D5W AND LACTATED RINGERS 1,000 ML IV SCH (01:18)
[2022-07-26] MEDS: CLINDAMYCIN/D5W 900 MG/50 ML BAG IV SCH ×2 (02:09→10:33)
[2022-07-26] MEDS ORDERED: GENTAMICIN SULFATE 500 MG in DEXTROSE 5% 100 ML IV ONE (04:00)
[2022-07-26] MEDS: AMPICILLIN 2,000 MG in SODIUM CHLOR 0.9% AD-VAN 100 ML IV SCH ×2 (04:49→11:57)
[2022-07-26] MEDS ORDERED: diphenhydrAMINE 50 MG/ML VIAL IV PRN (05:16)
[2022-07-26] MEDS ORDERED: DC INTRASPINAL MORPHINE SCH (05:16)
[2022-07-26] MEDS: oxyCODONE/ACETAMINOPHEN 5mg/325mg TAB PO PRN ×5 (05:16→21:09)
[2022-07-26] MEDS: IBUPROFEN 600 MG TAB PO PRN ×4 (05:16→20:58)
[2022-07-26] MEDS ORDERED: PROMETHAZINE HCL 25 MG in SODIUM CHLORIDE 0.9% 50 ML IV PRN (05:16)
[2022-07-26] MEDS ORDERED: MEPERIDINE HCL 50 MG/ML CARP IV PRN (05:16)
[2022-07-26] MEDS ORDERED: KETOROLAC 30 MG/ML VIAL IV PRN (05:16)
[2022-07-26] MEDS ORDERED: diphenhydrAMINE Capsule 25 MG CAP PO PRN (05:16)
[2022-07-26 06:42] LABS: Creatinine Clr Calc Pharmacy 122.1 ml/min; Est GFR (African American) 117.9 ml/min; Est GFR (Non-African American) 101.8 ml/min
--- NOTE | 2022-07-26 08:27 | Obstetrical Progress Note ---
Date of Service July 26, 2022 Assessment & Plan (1) Normal course: Continue routine PP course Plan for d/c home POD2/3 (2) Chorioamnionitis: Continue IV abx for 24 hrs after delivery (3) Gestational [-induced] hypertension without significant proteinuria , third trimester: (4) Graves disease: Subjective Ambulation: ambulating normally Passing Gas:: No Diet Tolerance:: regular diet Lochia:: Moderate Feeding Type:: breast feeding Current Pain Level(1-10): 4 Patient doing well, bonds removed this AM> NO PU yet, attempted but no success. Pain controlled with pain meds. No complaints. No fevers/chills Physical Exam Constitutional WD/WN, vitals as above Respiratory normal respiratory effort, lungs clear to auscultation Cardiovascular RRR, no murmur, no edema Gastrointestinal (Abdomen) normal bowel sounds, soft, nontender, no hepatosplenomegaly incision: bandage in place, clean and dry Results & Data Vital Signs (Past 12 Hours) Vital Signs Temp Pulse Resp BP BP Pulse Ox O2 Del Method 07/26/22 04:00 16 99 07/26/22 03:38 37.2 C 92 H 18 119/75 98 Room Air 07/26/22 03:00 99 H 07/26/22 02:00 16 97 07/26/22 01:00 16 98 07/26/22 05:00 16 98 07/26/22 00:36 16 99 07/26/22 00:00 16 98 07/25/22 23:15 36.8 C 79 18 134/89 98 Room Air 07/25/22 22:00 16 96 07/25/22 21:00 18 98 Laboratory Results Laboratory Results WBC 15.90 K/ul (4.8-10.8) H 07/25/22 08:27 RBC 4.52 M/uL (4.20-5.40) 07/25/22 08:27 Hgb 12.4 g/dl (12.0-16.0) 07/25/22 08:27 Hct 35.5 % (37.0-47.0) L 07/25/22 08:27 MCV 78.5 fL (80.0-100.0) L 07/25/22 08:27 MCH 27.4 pg (25.0-34.0) 07/25/22 08: MCHC 34.9 g/dL (32.0-36.0) 07/25/22 08: RDW Std Deviation 35.8 fL (36.4-46.3) L 07/25/22 08: RDW Coeff of Haseeb 12.6 % (11.5-14.5) 07/25/22 08: Plt Count 178 K/uL (130-400) 07/25/22 08: MPV 10.9 fL (9.4-12.4) 07/25/22 08:27 Immature Gran % (Auto) 0.6 % 07/25/22 08: Neut % (Auto) 80.9 % 07/25/22 08: Lymph % (Auto) 9.6 % 07/25/22 08: [place] % (Auto) 8.7 % 07/25/22 08: Eos % (Auto) 0.1 % 07/25/22 08: Baso % (Auto) 0.1 % 07/25/22 08: Neut # (Auto) 12.87 K/uL (1.40-6.50) H 07/25/22 08:27 Lymph # (Auto) 1.52 K/uL (1.2-3.4) 07/25/22 08:27 [place] # (Auto) 1.38 K/uL (0.11-0.59) H 07/25/22 08:27 Eos # (Auto) 0.01 K/uL (0-0.50) 07/25/22 08: Baso # (Auto) 0.02 K/uL (0-0.2) 07/25/22 08: Immature Gran # (Auto) 0.10 K/uL (0.01-0.20) 07/25/22 08:27 Cord ABG pH 7.31 (7.1-7.38) 07/25/22 11: Cord ABG pCO2 47 mmHg (39.1-73.5) 07/25/22 11: Cord ABG pO2 16 mmHg (4.1-31.7) 07/25/22 11:13 Cord ABG HCO3 24 mmol/L (19.7-28.5) 07/25/22 11: Cord ABG Base Excess -2.9 mEq/L (-9-1.8) 07/25/22 11:13 Cord ABG O2 Sat < 60.0 % (<60) 07/25/22 11:13 Cord VBG pH TNP 07/25/22 Unknown Cord VBG pCO2 TNP 07/25/22 Unknown Cord VBG pO2 TNP 07/25/22 Unknown Cord VBG HCO3 TNP 07/25/22 Unknown Cord VBG Base Excess TNP 07/25/22 Unknown Cord VBG O2 Sat TNP 07/25/22 Unknown Blood Gas Comments MOSES 07/25/22 Unknown Sodium 136 mmol/L (136-145) 07/24/22 15:35 Potassium 4.0 mmol/L (3.5-5.1) 07/24/22 15:35 Chloride 105 mmol/L (98-107) 07/24/22 15:35 Carbon Dioxide 24 mmol/L (21-32) 07/24/22 15:35 Anion Gap 7 (3-11) 07/24/22 15:35 BUN 8 mg/dl (6-23) 07/24/22 15:35 Creatinine 0.80 mg/dl (0.6-1.2) 07/26/22 06:08 Est Cr Clr Drug Dosing 122.1 ml/min 07/26/22 06:08 Est GFR ( Amer) 117.9 ml/min 07/26/22 06:08 Est GFR (Non-Af Amer) 101.8 ml/min 07/26/22 06:08 BUN/Creatinine Ratio 10.4 (10-20) 07/24/22 15:35 Glucose 81 mg/dl (70-99(Fasting)) 07/24/22 15:35 Calcium 8.9 mg/dl (8.6-10.3) 07/24/22 15:35 Total Bilirubin 0.3 mg/dl (0.2-1.0) 07/24/22 15:35 AST 15 U/L (13-39) 07/24/22 15:35 ALT 10 U/L (7-52) 07/24/22 15:35 Alkaline Phosphatase 180 U/L (34-104) H 07/24/22 15:35 Total Protein 6.8 gm/dl (6.0-8.3) 07/24/22 15:35 Albumin 3.4 gm/dl (3.4-5.0) 07/24/22 15:35 Globulin 3.4 gm/dl (2.5-4.0) 07/24/22 15:35 Albumin/Globulin Ratio 1.0 (0.9-2) 07/24/22 15:35 TSH 0.016 uIu/ml (0.300-4.500) L 07/23/22 10:02 Free T4 0.76 ng/dl (0.61-1.60) 07/23/22 10:02 Ur Random Creatinine 88.2 mg/dl 07/24/22 17:00 U Random Total Protein 6.6 mg/dl (0-11.9) 07/24/22 17:00 Protein/Creatinin Ratio 0.1 (0-0.2) 07/24/22 17:00 SARS-CoV-2, RNA, NAAT NEGATIVE (NEGATIVE) 07/23/22 08:00 Blood Type O Positive 07/23/22 09:57 Antibody Screen NEGATIVE 07/23/22 09:57
[2022-07-26] MEDS: PRENATAL VITAMIN 1 TAB PO SCH (08:44)
[2022-07-26] MEDS: FERROUS SULFATE 325 MG TAB PO SCH (08:44)
[2022-07-26] MEDS: DOCUSATE SODIUM 100 MG CAP PO SCH ×2 (08:45→20:58)
[2022-07-26] MEDS: SIMETHICONE 80 MG CHEW PO SCH ×4 (08:45→20:57)
[2022-07-26 09:09] LABS: Basophils # (auto) 0.02 K/uL (0-0.2); Basophils % (auto) 0.1 %; Eosinophils # (auto) 0.09 K/uL (0-0.50); Eosinophils % (auto) 0.6 %; Hematocrit (blood only) 26.6 % (37.0-47.0); Hemoglobin 9.5 g/dl (12.0-16.0); Immature Granulocytes # (auto) 0.06 K/uL (0.01-0.20); Immature Granulocytes % (auto) 0.4 %; Lymphocytes # (auto) 2.05 K/uL (1.2-3.4); Lymphocytes % (auto) 14.7 %; Mean Corpuscular Hemoglobin 27.7 pg (25.0-34.0); Mean Corpuscular Hgb Conc 35.7 g/dL (32.0-36.0); Mean Corpuscular Volume 77.6 fL (80.0-100.0); Monocytes # (auto) 1.26 K/uL (0.11-0.59); Neutrophils # (auto) 10.47 K/uL (1.40-6.50); Neutrophils % (auto) 75.2 %; Platelet Count 157 K/uL (130-400); RDW Coefficient of Variation 12.5 % (11.5-14.5); RDW Standard Deviation 35.1 fL (36.4-46.3); Red Blood Count 3.43 M/uL (4.20-5.40); White Blood Count 13.95 K/ul (4.8-10.8)
[2022-07-26 17:01] VITALS: O2SAT 96
[2022-07-26] MEDS ORDERED: bisacodyL 5 MG TABEC PO SCH (20:00)
[2022-07-27] MEDS: oxyCODONE/ACETAMINOPHEN 5mg/325mg TAB PO PRN ×3 (01:31→10:01)
[2022-07-27] MEDS: IBUPROFEN 600 MG TAB PO PRN ×3 (01:32→10:01)
[2022-07-27 06:10] VITALS: TEMP 97.9
[2022-07-27 06:52] LABS: Est GFR (African American) 129.6 ml/min; Est GFR (Non-African American) 111.8 ml/min
[2022-07-27 06:56] LABS: Hematocrit (blood only) 25.1 % (37.0-47.0); Hemoglobin 8.7 g/dl (12.0-16.0)
[2022-07-27] MEDS: PRENATAL VITAMIN 1 TAB PO SCH (09:05)
[2022-07-27] MEDS: DOCUSATE SODIUM 100 MG CAP PO SCH (09:05)
[2022-07-27] MEDS: FERROUS SULFATE 325 MG TAB PO SCH (09:05)
[2022-07-27] MEDS: SIMETHICONE 80 MG CHEW PO SCH (09:06)
[2022-07-27 09:13] VITALS: BP 128/79; PULSE 81
--- NOTE | 2022-07-27 09:39 | Obstetrical Progress Note ---
Date of Service July 27, 2022 Subjective Ambulation: ambulating normally Voiding: no voiding problems Passing Gas:: Yes Diet Tolerance:: regular diet Feeding Type:: breast feeding Current Pain Level(1-10): 0 doing well. wants to go home Physical Exam Constitutional WD/WN, vitals as above Gastrointestinal (Abdomen) Inspection/Auscultation: abdomen normal to inspection and + abdominal surgical incision incision c/d/i Musculoskeletal Extremities: extremities normal to inspection Skin no rashes, warm and dry Neurologic patellar DTR's 2+ bilat, sensation intact Psychiatric A+Ox3, euthymic affect Results & Data Vital Signs (Past 12 Hours) Vital Signs Temp Pulse Resp BP Pulse Ox O2 Del Method 07/27/22 09:09 36.6 C 81 16 128/79 07/27/22 04:50 36.6 C 07/26/22 23:10 37.2 C 83 20 112/76 96 Room Air Laboratory Results Laboratory Results - last 72 hr 07/23/22 07/24/22 07/24/22 09:57 15:35 15:35 WBC 11.86 H RBC 4.65 Hgb 12.8 Hct 36.8 L MCV 79.1 L MCH 27.5 MCHC 34.8 RDW Std Deviation 35.7 L RDW Coeff of Haseeb 12.6 Plt Count 191 MPV 11.1 Immature Gran % (Auto) Neut % (Auto) Lymph % (Auto) [place] % (Auto) Eos % (Auto) Baso % (Auto) Neut # (Auto) Lymph # (Auto) [place] # (Auto) Eos # (Auto) Baso # (Auto) Immature Gran # (Auto) Cord ABG pH Cord ABG pCO2 Cord ABG pO2 Cord ABG HCO3 Cord ABG Base Excess Cord ABG O2 Sat Cord VBG pH Cord VBG pCO2 Cord VBG pO2 Cord VBG HCO3 Cord VBG Base Excess Cord VBG O2 Sat Blood Gas Comments Sodium 136 Potassium 4.0 Chloride 105 Carbon Dioxide 24 Anion Gap 7 BUN 8 Creatinine 0.77 Est Cr Clr Drug Dosing 126.8 Est GFR ( Amer) 123.5 Est GFR (Non-Af Amer) 106.6 BUN/Creatinine Ratio 10.4 Glucose 81 Calcium 8.9 Total Bilirubin 0.3 AST 15 ALT 10 Alkaline Phosphatase 180 H Total Protein 6.8 Albumin 3.4 Globulin 3.4 Albumin/Globulin Ratio 1.0 Ur Random Creatinine U Random Total Protein Protein/Creatinin Ratio Blood Type O Positive Antibody Screen NEGATIVE 07/24/22 07/25/22 07/25/22 17:00 08:27 11:13 WBC 15.90 H RBC 4.52 Hgb 12.4 Hct 35.5 L MCV 78.5 L MCH 27.4 MCHC 34.9 RDW Std Deviation 35.8 L RDW Coeff of Haseeb 12.6 Plt Count 178 MPV 10.9 Immature Gran % (Auto) 0.6 Neut % (Auto) 80.9 Lymph % (Auto) 9.6 [place] % (Auto) 8.7 Eos % (Auto) 0.1 Baso % (Auto) 0.1 Neut # (Auto) 12.87 H Lymph # (Auto) 1.52 [place] # (Auto) 1.38 H Eos # (Auto) 0.01 Baso # (Auto) 0.02 Immature Gran # (Auto) 0.10 Cord ABG pH 7.31 Cord ABG pCO2 47 Cord ABG pO2 16 Cord ABG HCO3 24 Cord ABG Base Excess -2.9 Cord ABG O2 Sat < 60.0 Cord VBG pH Cord VBG pCO2 Cord VBG pO2 Cord VBG HCO3 Cord VBG Base Excess Cord VBG O2 Sat Blood Gas Comments MOSES Sodium Potassium Chloride Carbon Dioxide Anion Gap BUN Creatinine Est Cr Clr Drug Dosing Est GFR ( Amer) Est GFR (Non-Af Amer) BUN/Creatinine Ratio Glucose Calcium Total Bilirubin AST ALT Alkaline Phosphatase Total Protein Albumin Globulin Albumin/Globulin Ratio Ur Random Creatinine 88.2 U Random Total Protein 6.6 Protein/Creatinin Ratio 0.1 Blood Type Antibody Screen 07/25/22 07/26/22 07/26/22 Unknown 06:08 06:08 WBC 13.95 H RBC 3.43 L Hgb 9.5 L D Hct 26.6 L MCV 77.6 L MCH 27.7 MCHC 35.7 RDW Std Deviation 35.1 L RDW Coeff of Haseeb 12.5 Plt Count 157 MPV 11.0 Immature Gran % (Auto) 0.4 Neut % (Auto) 75.2 Lymph % (Auto) 14.7 [place] % (Auto) 9.0 Eos % (Auto) 0.6 Baso % (Auto) 0.1 Neut # (Auto) 10.47 H Lymph # (Auto) 2.05 [place] # (Auto) 1.26 H Eos # (Auto) 0.09 Baso # (Auto) 0.02 Immature Gran # (Auto) 0.06 Cord ABG pH Cord ABG pCO2 Cord ABG pO2 Cord ABG HCO3 Cord ABG Base Excess Cord ABG O2 Sat Cord VBG pH TNP Cord VBG pCO2 TNP Cord VBG pO2 TNP Cord VBG HCO3 TNP Cord VBG Base Excess TNP Cord VBG O2 Sat TNP Blood Gas Comments MOSES Sodium Potassium Chloride Carbon Dioxide Anion Gap BUN Creatinine 0.80 Est Cr Clr Drug Dosing 122.1 Est GFR ( Amer) 117.9 Est GFR (Non-Af Amer) 101.8 BUN/Creatinine Ratio Glucose Calcium Total Bilirubin AST ALT Alkaline Phosphatase Total Protein Albumin Globulin Albumin/Globulin Ratio Ur Random Creatinine U Random Total Protein Protein/Creatinin Ratio Blood Type Antibody Screen 07/27/22 07/27/22 06:16 06:16 WBC RBC Hgb 8.7 L Hct 25.1 L MCV MCH MCHC RDW Std Deviation RDW Coeff of Haseeb Plt Count MPV Immature Gran % (Auto) Neut % (Auto) Lymph % (Auto) [place] % (Auto) Eos % (Auto) Baso % (Auto) Neut # (Auto) Lymph # (Auto) [place] # (Auto) Eos # (Auto) Baso # (Auto) Immature Gran # (Auto) Cord ABG pH Cord ABG pCO2 Cord ABG pO2 Cord ABG HCO3 Cord ABG Base Excess Cord ABG O2 Sat Cord VBG pH Cord VBG pCO2 Cord VBG pO2 Cord VBG HCO3 Cord VBG Base Excess Cord VBG O2 Sat Blood Gas Comments Sodium Potassium Chloride Carbon Dioxide Anion Gap BUN Creatinine 0.74 Est Cr Clr Drug Dosing 132.0 Est GFR ( Amer) 129.6 Est GFR (Non-Af Amer) 111.8 BUN/Creatinine Ratio Glucose Calcium Total Bilirubin AST ALT Alkaline Phosphatase Total Protein Albumin Globulin Albumin/Globulin Ratio Ur Random Creatinine U Random Total Protein Protein/Creatinin Ratio Blood Type Antibody Screen
[2022-07-27] MEDS ORDERED: bisacodyL 10 MG SUPP PR PRN (11:48)
== END 2022-07-27 13:00 | disposition home or self-care (01) | DRG 786 ==
LOC: 4S1 07:46 → 4E2 07-25 14:58